=== PATIENT | female | born 1955 | race Caucasian/White ===

== ENCOUNTER 2016-11-17 09:49 | Inpatient (IN) | payer OTHER ==
[~2016-11-17] VITALS: Ht 162.6 cm; Wt 125.6 kg
[~2016-11-17 09:49] MED LIST: ALBU1.25 NEB; ALBU8.5H8 IH; ALBU8.5H8 INH; ALPR1TAB2 PO; CARI350T PO; DOCU-109 PO; ECHI350C PO; FEXO180T81 PO; HYDR-2678 PO; HYDR-971 PO; IBUP200T43 PO; IPRA4AER IH; LANS30CA66 PO; MECL25TA3 PO; META-21 PO; MOME0.5P MC; MULT-505 PO; NABU500T PO; PHEN37.599 PO; POLY17PO5 PO; POLY8.5P PO; PRED-220 PO; PRED20TA PO; TIZA4TAB PO; TRAM50TA PO; TRAZ-90 PO; trazadone
--- NOTE | 2016-11-17 10:14 | ED.ADGEN ---
Past History Past Medical History: Anxiety, Arthritis, Asthma, Other Past Surgical History: Cholecystectomy, Hysterectomy, Oophorectomy, Other Alcohol Use: None Drug Use: None Adult General Chief Complaint Chief Complaint Multiple complaints HPI HPI Patient is a 61 year old female who presents with in stable episodes of the last several weeks. She also complains about some chest pressure and sided jaw pain. She also complains of migraine headache. She denies any nausea or vomiting. That she's been feeling dizzy and she had migraines in the last day. Since she's had multiple syncopal episodes over the last week to 2 weeks. She states yesterday she was taking a shower sitting in her bathtub and she woke up in the bathtub with water and face. She denies any injuries from any falls. She's takes Advil but this hasn't been helping. She was seen by her primary care physician this morning was concerned she might be having a heart attack or stroke in the ER. Review of Systems Review of Systems Constitutional: Denies fever or chills [] Eyes: Denies change in visual acuity, redness, or eye pain [] HENT: Denies nasal congestion or sore throat [] Respiratory: Denies cough or shortness of breath [] Cardiovascular: No additional information not addressed in HPI [] GI: Denies abdominal pain, nausea, vomiting, bloody stools or diarrhea [] : Denies dysuria or hematuria [] Musculoskeletal: Denies back pain or joint pain [] Integument: Denies rash or skin lesions [] Neurologic: Positive for headache, denies any focal weakness or sensory changes. Endocrine: Denies polyuria or polydipsia [] Current Medications Current Medications Current Medications Medications (Trade) Dose Ordered Sig/[facility] Start Time Stop Time Status Last Admin Dose Admin Acetaminophen (Tylenol) 1,000 mg 1X ONCE 11/17/16 11:45 11/17/16 11:46 Allergies Allergies Allergies Coded Allergies Type Severity Reaction Last Updated Verified fish derived Allergy Intermediate 11/07/14 Yes nabumetone Allergy Intermediate 01/08/15 Yes tizanidine Allergy Intermediate 01/08/15 Yes Penicillins Adverse Reaction Intermediate 11/07/14 Yes Sulfa (Sulfonamide Antibiotics) Adverse Reaction Intermediate 11/07/14 Yes aspirin Adverse Reaction Intermediate 11/07/14 Yes latex Adverse Reaction Intermediate 11/07/14 Yes Physical Exam Physical Exam Constitutional: Well developed, well nourished, no acute distress, non-toxic appearance. [] HENT: Normocephalic, atraumatic, bilateral external ears normal, oropharynx moist, no oral exudates, nose normal. [] Eyes: PERRLA, EOMI, conjunctiva normal, no discharge. [] Neck: Normal range of motion, no tenderness, supple, no stridor. [] Cardiovascular:Heart rate regular rhythm, no murmur [] Lungs & Thorax: Bilateral breath sounds clear to auscultation [] Abdomen: Bowel sounds normal, soft, no tenderness, no masses, no pulsatile masses. [] Skin: Warm, dry, no erythema, no rash. [] Back: No tenderness, no CVA tenderness. [] Extremities: No tenderness, no cyanosis, no clubbing, ROM intact, no edema. [] Neurologic: Alert and oriented X 3, normal motor function, normal sensory function, no focal deficits noted. [] Psychologic: Affect normal, judgement normal, mood normal. [] Current Patient Data Vital Signs Vital Signs Date Time Temp Pulse Resp B/P (MAP) Pulse Ox O2 Delivery O2 Flow Rate FiO2 11/17/16 09:55 97.9 88 18 97 Room Air Lab Results Laboratory Tests Test 11/17/16 10:15 11/17/16 10:18 Urine Collection Type Unknown Urine Color Yellow Urine Clarity Hazy Urine pH 5.5 Urine Specific [place] >=1.030 Urine Protein Neg (NEG-TRACE) Urine Glucose (UA) Neg mg/dL (NEG) Urine Ketones (Stick) Trace mg/dL (NEG) Urine Blood Neg (NEG) Urine Nitrite Neg (NEG) Urine Bilirubin Neg (NEG) Urine Urobilinogen Dipstick 0.2 mg/dL (0.2 mg/dL) Urine Leukocyte Esterase Neg (NEG) Urine RBC Rare /HPF (0-2) Urine WBC Rare /HPF (0-4) Urine Squamous Epithelial Cells Occ /LPF Urine Bacteria 0 /HPF (0-FEW) Urine Mucus Slight /LPF Urine Opiates Screen Neg (NEG) Urine Methadone Screen Neg (NEG) Urine Barbiturates Neg (NEG) Urine Phencyclidine Screen Neg (NEG) Urine Amphetamine/Methamphetamine Neg (NEG) Urine Benzodiazepines Screen Pos (NEG) Urine Cocaine Screen Neg (NEG) Urine Cannabinoids Screen Neg (NEG) Urine Ethyl Alcohol Neg (NEG) White Blood Count 7.7 x10^3/uL (4.0-11.0) Red Blood Count 4.76 x10^6/uL (3.50-5.40) Hemoglobin 14.6 g/dL (12.0-15.5) Hematocrit 42.8 % (36.0-47.0) Mean Corpuscular Volume 90 fL (79-100) Mean Corpuscular Hemoglobin 31 pg (25-35) Mean Corpuscular Hemoglobin Concent 34 g/dL (31-37) Red Cell Distribution Width 13.3 % (11.5-14.5) Platelet Count 295 x10^3/uL (140-400) Neutrophils (%) (Auto) 51 % (31-73) Lymphocytes (%) (Auto) 34 % (24-48) Monocytes (%) (Auto) 8 % (0-9) Eosinophils (%) (Auto) 6 % (0-3) H Basophils (%) (Auto) 1 % (0-3) Neutrophils # (Auto) 3.9 x10^3uL (1.8-7.7) Lymphocytes # (Auto) 2.6 x10^3/uL (1.0-4.8) Monocytes # (Auto) 0.6 x10^3/uL (0.0-1.1) Eosinophils # (Auto) 0.5 x10^3/uL (0.0-0.7) Basophils # (Auto) 0.1 x10^3/uL (0.0-0.2) Prothrombin Time 9.5 SEC (9.4-11.4) Prothrombin Time INR 0.9 (0.9-1.1) PTT 23 SEC (23-33) Sodium Level 139 mmol/L (136-145) Potassium Level 4.5 mmol/L (3.5-5.1) Chloride Level 106 mmol/L (98-107) Carbon Dioxide Level 31 mmol/L (21-32) Anion Gap 2 (6-14) L Blood Urea Nitrogen 15 mg/dL (7-20) Creatinine 0.8 mg/dL (0.6-1.0) Estimated GFR (Cockcroft-Gault) 73.4 Glucose Level 83 mg/dL (70-99) Calcium Level 9.0 mg/dL (8.5-10.1) Magnesium Level 2.1 mg/dL (1.8-2.4) Total Bilirubin 0.3 mg/dL (0.2-1.0) Direct Bilirubin 0.1 mg/dL (0.0-0.2) Aspartate Amino Transferase (AST) 11 U/L (15-37) L Alanine Aminotransferase (ALT) 20 U/L (14-59) Alkaline Phosphatase 104 U/L (46-116) Creatine Kinase 101 U/L (26-192) Creatine Kinase MB (Mass) 1.8 ng/mL (0.0-3.6) Creatine Kinase MB Relative Index 1.8 % (0-4) Troponin I Quantitative < 0.017 ng/mL (0-0.055) EZ-Uyd-S-Type Natriuretic Peptide 174 pg/mL (0-124) H Total Protein 7.0 g/dL (6.4-8.2) Albumin 3.7 g/dL (3.4-5.0) Lipase 184 U/L (73-393) EKG EKG EKG shows sinus rhythm rate [address] elevations or T-wave inversions, normal axis, QTC 411 ms, as interpreted by me. Radiology/Procedures Radiology/[place] [address] IMAGING REPORT Signed PATIENT: TANK DANG ACCOUNT: [id number] : 1955 LOCATION: ER AGE: 61 SEX: F EXAM STATUS: REG ER ORD. PHYSICIAN: DAMARIS LEMUS MD REASON: chest pain PROCEDURE: PORTABLE CHEST 1V EXAM: Chest one view. HISTORY: Syncope, dizziness, weakness. COMPARISON: 05/02/2016. FINDINGS: A frontal view of the chest is obtained. There are no confluent infiltrates. There is no pneumothorax or pleural effusion. The heart is not enlarged. Prominence of the left hilum appears stable chronically. There is a mild thoracic dextroscoliosis. Carotid atherosclerotic calcifications are noted. The left distal clavicle has been partially resected. IMPRESSION: 1. No confluent infiltrates. DICTATED AND SIGNED BY: MIGEL PASCUAL MD DATE: 11/17/16 1031 CC: CARMINA BARRON MD; DAMARIS LEMUS MD ~ [place] [id number] IMAGING REPORT Signed PATIENT: TANK DANG ACCOUNT: [id number] : 1955 LOCATION: ER AGE: 61 SEX: F EXAM STATUS: REG ER ORD. PHYSICIAN: DAMARIS LEMUS MD REASON: dizziness PROCEDURE: CT HEAD WO CONTRAST Indication syncopal episode. Dizziness. Weakness. Noncontrast images of the head were obtained. Note is made of a similar examination 09/16/2014. The calvarium appears unremarkable. The visualized paranasal sinuses appear normal. There is no subdural or epidural hematoma. There is no mass or midline shift. There is no hemorrhage. Acute finding is not apparent. IMPRESSION: No acute intracranial finding PQRS Compliance Statement: One or more of the following individualized dose reduction techniques were utilized for this examination: 1. Automated exposure control 2. Adjustment of the mA and/or kV according to patient size 3. Use of iterative reconstruction technique DICTATED AND SIGNED BY: ISMAEL ALVA MD DATE: 11/17/16 1032 CC: CARMINA BARRON MD; DAMARIS LEMUS MD ~ Course & Med Decision Making Course & Med Decision Making Pertinent Labs and Imaging studies reviewed. (See chart for details) Patient is being admitted Dr. Barron for worsening episodes and her chest discomfort. EKG, chest x-ray, basic labs nonacute this time. She is allergic to aspirin. She being admitted in stable condition to med telemetry. Final Impression Final Impression Chest discomfort Syncopal episodes Problems: Dragon Disclaimer Dragon Disclaimer This electronic medical record was generated, in whole or in part, using a voice recognition dictation system. DAMARIS LEMUS MD Nov 17, 2016 10:13
[2016-11-17 10:34] LABS: BASO # 0.1 x10^3/uL (0.0-0.2); BASO % 1 % (0-3); EOS # 0.5 x10^3/uL (0.0-0.7); EOS % 6 % (0-3); HEMATOCRIT 42.8 % (36.0-47.0); HEMOGLOBIN 14.6 g/dL (12.0-15.5); LYMPH # 2.6 x10^3/uL (1.0-4.8); LYMPH % 34 % (24-48); MEAN CORPUSCULAR HEMOGLOBIN 31 pg (25-35); MEAN CORPUSCULAR HGB CONC 34 g/dL (31-37); MEAN CORPUSCULAR VOLUME 90 fL (79-100); MONO # 0.6 x10^3/uL (0.0-1.1); MONO % 8 % (0-9); NEUT # 3.9 x10^3uL (1.8-7.7); NEUT % 51 % (31-73); PLATELET COUNT 295 x10^3/uL (140-400); RED BLOOD COUNT 4.76 x10^6/uL (3.50-5.40); RED CELL DISTRIBUTION WIDTH 13.3 % (11.5-14.5); WHITE BLOOD COUNT 7.7 x10^3/uL (4.0-11.0)
--- NOTE | 2016-11-17 10:38 | RAD ---
EXAM: Chest one view. HISTORY: Syncope, dizziness, weakness. COMPARISON: 05/02/2016. FINDINGS: A frontal view of the chest is obtained. There are no confluent infiltrates. There is no pneumothorax or pleural effusion. The heart is not enlarged. Prominence of the left hilum appears stable chronically. There is a mild thoracic dextroscoliosis. Carotid atherosclerotic calcifications are noted. The left distal clavicle has been partially resected. IMPRESSION: 1. No confluent infiltrates.
--- NOTE | 2016-11-17 10:38 | RAD ---
Indication syncopal episode. Dizziness. Weakness. Noncontrast images of the head were obtained. Note is made of a similar examination 09/16/2014. The calvarium appears unremarkable. The visualized paranasal sinuses appear normal. There is no subdural or epidural hematoma. There is no mass or midline shift. There is no hemorrhage. Acute finding is not apparent. IMPRESSION: No acute intracranial finding PQRS Compliance Statement: One or more of the following individualized dose reduction techniques were utilized for this examination: 1. Automated exposure control 2. Adjustment of the mA and/or kV according to patient size 3. Use of iterative reconstruction technique
[2016-11-17 10:41] LABS: BILIRUBIN,URINE NEG (NEG); CLARITY,URINE HAZY; COLOR,URINE YELLOW; GLUCOSE,URINE NEG (NEG)
[2016-11-17 10:42] LABS: BACTERIA,URINE 0 /HPF (0-FEW); NITRITE,URINE NEG (NEG); RBC,URINE RARE /HPF (0-2); SQUAMOUS EPITHELIAL CELL,UR OCC /LPF; UROBILINOGEN,URINE 0.2 mg/dL (0.2 mg/dL); WBC,URINE RARE /HPF (0-4)
[2016-11-17 10:43] LABS: AMPHETAMINE/METHAMPHETAMINE NEG (NEG); BARBITURATES NEG (NEG); BENZODIAZEPINES POS (NEG); CANNABINOIDS NEG (NEG); COCAINE NEG (NEG); METHADONE NEG (NEG); OPIATES NEG (NEG); PHENCYCLIDINE NEG (NEG)
[2016-11-17 10:58] LABS: ALBUMIN 3.7 g/dL (3.4-5.0); CREATININE 0.8 mg/dL (0.6-1.0); DIRECT BILIRUBIN 0.1 mg/dL (0.0-0.2); GFR 73.4; MAGNESIUM 2.1 mg/dL (1.8-2.4); POTASSIUM 4.5 mmol/L (3.5-5.1); TOTAL BILIRUBIN 0.3 mg/dL (0.2-1.0)
[2016-11-17] MEDS ORDERED: ACETAMINOPHEN 500 MG TABLET PO ONE (11:45)
[2016-11-17] MEDS ORDERED: ONDANSETRON PF 4 MG/2 ML VIAL. IV PRN (12:00)
--- NOTE | 2016-11-17 12:47 | EKG ---
[address] [address] Test Date: 2016-11-17 Test Time: 09:54:55 Pat Name: TANK DANG Department: Room: Gender: F [employer]: : 1955 Requested By: DAMARIS LEMUS Order Number: [id number] Reading MD: Bishnu Recio Measurements Intervals [place] Rate: 78 P: 47 PA: 168 QRS: 18 QRSD: 92 T: 56 QT: 358 QTc: 411 Interpretive Statements SINUS RHYTHM Electronically Signed On 11-30-2016 14:16:32 CDT by Bishnu Recio
[2016-11-17 15:48] VITALS: BP 121/98
[2016-11-17 18:45] VITALS: BP 129/82
[2016-11-17 18:46] VITALS: BP_SYST 121; BP_SYST 147; BP_DIAS 110
[2016-11-17] MEDS ORDERED: NON FORMULARY ITEM (Albuterol Sulfate (Albuterol Sulfate Neb Soln) 1 VIAL) NEB PRN (19:30)
[2016-11-17] MEDS ORDERED: ALBUTEROL SULFATE 8GM INHALER. IH PRN (19:30)
[2016-11-17 19:43] VITALS: BP 110/64
[2016-11-17] MEDS: ALPRAZolam 0.5 MG TABLET PO SCH (19:56)
[2016-11-17] MEDS ORDERED: ALBUTEROL SULFATE 2.5 MG/3 ML NEBU. NEB PRN (20:00)
[2016-11-17] MEDS: traMADol 50 MG TABLET PO PRN (20:08)
[2016-11-17] MEDS: IPRATRPIUM/ALBUTEROL 0.5/2.5MG 3 ML NEBU. NEB SCH (20:15)
[2016-11-17] MEDS ORDERED: traZODone 100 MG TABLET. PO SCH (21:00)
[2016-11-17] MEDS ORDERED: NON FORMULARY ITEM (Ipratropium/Albuterol Sulfate (Combivent Respimat Inhal) 4 GM) IH SCH (21:00)
[2016-11-17] MEDS: ENOXAPARIN 40 MG/0.4 ML DISP.SYRIN. SQ SCH (21:40)
[2016-11-17] MEDS: IV NORMAL SALINE 1,000ML 1,000 ML IV SCH (22:11)
[2016-11-17] MEDS ORDERED: ACETAMINOPHEN 500 MG TABLET PO PRN (22:45)
[2016-11-17] MEDS: ACETAMINOPHEN 325 MG TABLET PO PRN (22:51)
[2016-11-17 23:17] VITALS: BP 136/84
--- NOTE | 2016-11-18 03:45 | ACF ---
Admission Criteria Forms [facility] Telemetry Admission Guidelines (Place 'X' for any and all applicable criteria): Admission to telemetry [A] may be indicated for ANY ONE of the following(1)(2)(3 )(4)(5): [ ]I. Cardiac disease, including ANY ONE of the following (9)(10)(11)(12)(13 ): [ ]a) Postacute KS [ ]b) Low-risk patients with ST-segment elevation KS who have undergone successful percutaneous coronary intervention [ ]c) Unstable angina [ ]d) Suspected KS (until it is ruled out) [ ]e) Post cardiac surgery (first 48 to 72 hours unless complications occur) [ ]f) Acute arrhythmias (including significant tachycardia or bradycardia) [B] [ ]g) Firing of an implantable cardioverter defibrillator [C] [ ]h) Suspected pacemaker or implantable cardioverter defibrillator malfunction (10) [ ]i) New administration or adjustment of an antiarrhythmic drug [D ] [ ]j) Child admitted for acute congestive heart failure [ ]j) Long QT syndrome [ ]k) Advanced heart block (eg, second-degree Mobitz type II, third- degree heart block) [ ]l) Acute myocarditis or pericarditis [ ]m) Short-term (ambulatory or inpatient) monitoring after a cardiac procedure as indicated by ANY ONE of the following [E]: [ ]i) Electrophysiologic studies [ ]ii) Percutaneous coronary intervention with stent placement [ ]iii) Pacemaker placement with cardiac conduction defect [ ]iv) Implantable cardiac defibrillator placement [ ]II. Drug overdose or poisoning with substance that causes arrhythmias or QT prolongation (eg, phenothiazines, sympathomimetic agents, cyclic antidepressants, digitalis, antiarrhythmic drugs)(15) [ ]III. Short-term (ambulatory or inpatient) monitoring after therapeutic or diagnostic procedure requiring conscious sedation or anesthesia (eg, endoscopy, elective cardioversion) [ ]IV. Acute cerebrovascular even[F](18) [ ]V. Massive blood transfusion (eg, at least 10 units of packed red blood cells in 24 hours) [ ]. Variceal bleeding after endoscopy, sclerotherapy, or IV vasopressin [ ]VII. Uncorrected electrolyte abnormalities associated with an increased risk of dangerous arrhythmia [G]; examples include [ ]a) Hyperkalemia with attributable ECG changes [ ]b) Potassium greater than 6.5 mmol/L (mEq/L) in a patient without history of chronic renal disease [ ]c) Prolonged QT attributed to hypokalemia, hypomagnesemia, or hypocalcemia [X]VIII.Unexplained syncope or other neurologic event suspected of being due to arrhythmia due to a finding that increases risk; examples include(19)(20)(21): [ ]a) High-risk ECG findings (eg, bifascicular block, bradycardia, abnormal QT interval, ventricular pre- excitation) [ ]b) History of previous syncope due to arrhythmia [ ]c) Abnormal ventricular function (eg, reduced ejection fraction ) [ ]d) Exertional or supine syncope [X]e) Concerning syncope characteristics (eg, sudden loss of consciousness without prodrome) [ ]f) Family history of sudden [ ]g) Use of arrhythmogenic medication [ ]h) Suspected cardiac ischemia [ ]i) Known channelopathy (eg, long QT syndrome, Brugada syndrome, or catecholaminergic paroxysmal ventricular tachycardia) [ ]j) Known structural heart disease (eg, hypertrophic cardiomyopathy , severe valvular disease) [ ]k) Palpitations preceding syncope The original [employer] content created by [employer] has been revised. The portions of the content which have been revised are identified through the use of italic text or in bold, and [employer] has neither reviewed nor approved the modified material. All other unmodified content is copyright [employer]. Please see references footnoted in the original [employer] edition 2016 Admission Criteria Met?: Yes DOMINICK CARIAS Nov 18, 2016 03:44
[2016-11-18] MEDS: ACETAMINOPHEN 325 MG TABLET PO PRN ×2 (03:47→10:57)
[2016-11-18] MEDS: IPRATRPIUM/ALBUTEROL 0.5/2.5MG 3 ML NEBU. NEB SCH ×3 (05:20→15:31)
[2016-11-18 05:25] VITALS: BP 115/73
[2016-11-18 06:37] LABS: BASO # 0.1 x10^3/uL (0.0-0.2); BASO % 1 % (0-3); EOS # 0.4 x10^3/uL (0.0-0.7); EOS % 6 % (0-3); HEMATOCRIT 41.7 % (36.0-47.0); HEMOGLOBIN 13.9 g/dL (12.0-15.5); LYMPH # 3.3 x10^3/uL (1.0-4.8); LYMPH % 42 % (24-48); MEAN CORPUSCULAR HEMOGLOBIN 30 pg (25-35); MEAN CORPUSCULAR HGB CONC 33 g/dL (31-37); MEAN CORPUSCULAR VOLUME 89 fL (79-100); MONO # 0.5 x10^3/uL (0.0-1.1); MONO % 7 % (0-9); NEUT # 3.4 x10^3uL (1.8-7.7); NEUT % 44 % (31-73); PLATELET COUNT 296 x10^3/uL (140-400); RED BLOOD COUNT 4.67 x10^6/uL (3.50-5.40); RED CELL DISTRIBUTION WIDTH 13.5 % (11.5-14.5); WHITE BLOOD COUNT 7.7 x10^3/uL (4.0-11.0)
[2016-11-18 06:50] LABS: CALCIUM 8.5 mg/dL (8.5-10.1); CREATININE 0.8 mg/dL (0.6-1.0); GFR 73.4; POTASSIUM 3.8 mmol/L (3.5-5.1)
[2016-11-18] MEDS: traMADol 50 MG TABLET PO PRN (07:53)
[2016-11-18] MEDS: ALPRAZolam 0.5 MG TABLET PO SCH ×2 (07:54→14:17)
[2016-11-18] MEDS: ENOXAPARIN 40 MG/0.4 ML DISP.SYRIN. SQ SCH (07:54)
[2016-11-18] MEDS ORDERED: CETIRIZINE HCL 10 MG TABLET PO SCH (09:00)
[2016-11-18] MEDS ORDERED: PANTOPRAZOLE 40 MG TABLET. PO SCH (09:00)
--- NOTE | 2016-11-18 09:59 | PDOC ---
OBJECTIVE: Problems: Problems Medical Problems: (1) Chest pain Status: Acute Vital Signs: Vital Signs Date Time Temp Pulse Resp B/P (MAP) Pulse Ox O2 Delivery O2 Flow Rate FiO2 11/18/16 09:40 93 Room Air 11/18/16 05:25 98.2 73 16 115/73 (87) I & O Intake and Output 11/18/16 07:00 Intake Total 1120 ml Output Total 1250 ml Balance -130 ml Intake Oral 1120 ml Output Urine Total 1250 ml # Voids 3 Labs: Laboratory Tests Test 11/17/16 10:15 11/17/16 10:18 11/17/16 16:25 11/17/16 22:43 Urine Collection Type Unknown Urine Color Yellow Urine Clarity Hazy Urine pH 5.5 Urine Specific [place] >=1.030 Urine Protein Neg (NEG-TRACE) Urine Glucose (UA) Neg mg/dL (NEG) Urine Ketones (Stick) Trace mg/dL (NEG) Urine Blood Neg (NEG) Urine Nitrite Neg (NEG) Urine Bilirubin Neg (NEG) Urine Urobilinogen Dipstick 0.2 mg/dL (0.2 mg/dL) Urine Leukocyte Esterase Neg (NEG) Urine RBC Rare /HPF (0-2) Urine WBC Rare /HPF (0-4) Urine Squamous Epithelial Cells Occ /LPF Urine Bacteria 0 /HPF (0-FEW) Urine Mucus Slight /LPF Urine Opiates Screen Neg (NEG) Urine Methadone Screen Neg (NEG) Urine Barbiturates Neg (NEG) Urine Phencyclidine Screen Neg (NEG) Urine Amphetamine/Methamphetamine Neg (NEG) Urine Benzodiazepines Screen Pos (NEG) Urine Cocaine Screen Neg (NEG) Urine Cannabinoids Screen Neg (NEG) Urine Ethyl Alcohol Neg (NEG) White Blood Count 7.7 x10^3/uL (4.0-11.0) Red Blood Count 4.76 x10^6/uL (3.50-5.40) Hemoglobin 14.6 g/dL (12.0-15.5) Hematocrit 42.8 % (36.0-47.0) Mean Corpuscular Volume 90 fL (79-100) Mean Corpuscular Hemoglobin 31 pg (25-35) Mean Corpuscular Hemoglobin Concent 34 g/dL (31-37) Red Cell Distribution Width 13.3 % (11.5-14.5) Platelet Count 295 x10^3/uL (140-400) Neutrophils (%) (Auto) 51 % (31-73) Lymphocytes (%) (Auto) 34 % (24-48) Monocytes (%) (Auto) 8 % (0-9) Eosinophils (%) (Auto) 6 % (0-3) Basophils (%) (Auto) 1 % (0-3) Neutrophils # (Auto) 3.9 x10^3uL (1.8-7.7) Lymphocytes # (Auto) 2.6 x10^3/uL (1.0-4.8) Monocytes # (Auto) 0.6 x10^3/uL (0.0-1.1) Eosinophils # (Auto) 0.5 x10^3/uL (0.0-0.7) Basophils # (Auto) 0.1 x10^3/uL (0.0-0.2) Prothrombin Time 9.5 SEC (9.4-11.4) Prothromb Time International Ratio 0.9 (0.9-1.1) Activated Partial Thromboplast Time 23 SEC (23-33) Sodium Level 139 mmol/L (136-145) Potassium Level 4.5 mmol/L (3.5-5.1) Chloride Level 106 mmol/L (98-107) Carbon Dioxide Level 31 mmol/L (21-32) Anion Gap 2 (6-14) Blood Urea Nitrogen 15 mg/dL (7-20) Creatinine 0.8 mg/dL (0.6-1.0) Estimated GFR (Cockcroft-Gault) 73.4 Glucose Level 83 mg/dL (70-99) Calcium Level 9.0 mg/dL (8.5-10.1) Magnesium Level 2.1 mg/dL (1.8-2.4) Total Bilirubin 0.3 mg/dL (0.2-1.0) Direct Bilirubin 0.1 mg/dL (0.0-0.2) Aspartate Amino Transf (AST/SGOT) 11 U/L (15-37) Alanine Aminotransferase (ALT/SGPT) 20 U/L (14-59) Alkaline Phosphatase 104 U/L (46-116) Creatine Kinase 101 U/L (26-192) Creatine Kinase MB (Mass) 1.8 ng/mL (0.0-3.6) Creatine Kinase MB Relative Index 1.8 % (0-4) Troponin I Quantitative < 0.017 ng/mL (0-0.055) < 0.017 ng/mL (0-0.055) < 0.017 ng/mL (0-0.055) NR-Cry-C-Type Natriuretic Peptide 174 pg/mL (0-124) Total Protein 7.0 g/dL (6.4-8.2) Albumin 3.7 g/dL (3.4-5.0) Lipase 184 U/L (73-393) Thyroid Stimulating Hormone (TSH) 3.720 uIU/mL (0.358-3.740) Test 11/18/16 06:01 White Blood Count 7.7 x10^3/uL (4.0-11.0) Red Blood Count 4.67 x10^6/uL (3.50-5.40) Hemoglobin 13.9 g/dL (12.0-15.5) Hematocrit 41.7 % (36.0-47.0) Mean Corpuscular Volume 89 fL (79-100) Mean Corpuscular Hemoglobin 30 pg (25-35) Mean Corpuscular Hemoglobin Concent 33 g/dL (31-37) Red Cell Distribution Width 13.5 % (11.5-14.5) Platelet Count 296 x10^3/uL (140-400) Neutrophils (%) (Auto) 44 % (31-73) Lymphocytes (%) (Auto) 42 % (24-48) Monocytes (%) (Auto) 7 % (0-9) Eosinophils (%) (Auto) 6 % (0-3) Basophils (%) (Auto) 1 % (0-3) Neutrophils # (Auto) 3.4 x10^3uL (1.8-7.7) Lymphocytes # (Auto) 3.3 x10^3/uL (1.0-4.8) Monocytes # (Auto) 0.5 x10^3/uL (0.0-1.1) Eosinophils # (Auto) 0.4 x10^3/uL (0.0-0.7) Basophils # (Auto) 0.1 x10^3/uL (0.0-0.2) Sodium Level 140 mmol/L (136-145) Potassium Level 3.8 mmol/L (3.5-5.1) Chloride Level 103 mmol/L (98-107) Carbon Dioxide Level 34 mmol/L (21-32) Anion Gap 3 (6-14) Blood Urea Nitrogen 12 mg/dL (7-20) Creatinine 0.8 mg/dL (0.6-1.0) Estimated GFR (Cockcroft-Gault) 73.4 Glucose Level 100 mg/dL (70-99) Calcium Level 8.5 mg/dL (8.5-10.1) Physical Exam: Alert oriented white female in no apparent distress with feeling weak and lightheaded still orthostatic hypotension lungs diminished but clear CV exam regular sinus rhythm M soft nontender extremities without clubbing cyanosis edema Neurologically alert and oriented 3 ASSESSMENT: Chest pain rule out MS have cardiology review the patient Syncope Lightheadedness PLAN: Continue with IV fluids continue with cardiology consultation and make further evaluation once they've evaluated the patient CARMINA BARRON MD Nov 18, 2016 09:59
--- NOTE | 2016-11-18 10:04 | PDOC2 ---
CONSULT Date of Admission DATE: 11/18/16 TIME: 10:04 Reason for Consult: chest pain, syncope Problem List Problems Medical Problems: (1) Chest pain Status: Acute History of Present Illness Ms Urena is a 61 year old female who presents with complaints of Migrane, Chest pain and dyspnea on exertion, palpitations and syncope. She reports dyspnea and chest pressure on exertion that resolves with about 15 minutes of rest. She reports this occured most recently with shopping at [employer] and walking out to her car. She reports associated diaphoresis and lightheadedness. She reports episodes of palpitations that feel like fluttering but not associated with exertion. She additionally reports several episodes of syncope over the last couple weeks. The most recent occurred while showering. she was apparently using a shower chair and passed out. She reports coming to with the water spraying her face. She reports preceding lightheaded feeling. she complains of headache with associated photosensitivity, jaw pain and pain down her neck into her shoulder. she reports some relief with flexion of her neck. Past Medical History Stress echo 12/2015 submaximal, EF 55% MPI 01/2016 normal perfusion. Sleep study Dec 2015 - positive for sleep apnea and recommended CPAP @ [id number] with repeat oximetry on those settings. PAST MEDICAL HISTORY: Significant for hearing loss in the left ear, shortness of breath with exertion, and sleep apnea, migranes, chronic allergy problems, vertigo, asthma, morbid obesity, gastroesophageal reflux disease, degenerative arthritis, chronic back pain, panic disorder, depression, anxiety and psoriasis. Lung nodules s/p bronchoscopy 02/01/16 FINDINGS: 1. Normal vocal cords. 2. No endobronchial lesions. 3. Variate normal openings to the right middle lobe and right lower lobe segment somewhat smaller than usual. 4. No endobronchial lesions. 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 Family History Stroke Social History Prior history of minimal tobacco use. No ETOH, No illicit drugs. 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 Current Medications Current Medications Acetaminophen (Tylenol) 1,000 mg 1X ONCE PO Last administered on 11/17/16t 11: 45; Start 11/17/16 at 11:45; Stop 11/17/16 at 11:46; Status DC Ondansetron HCl (Zofran) 4 mg PRN Q4HRS PRN IV NAUSEA/VOMITING; Start 11/17/16 at 12:00; Stop 11/18/16 at 11:59 Albuterol Sulfate (Ventolin Hfa) 2 puff Q4HRS PRN IH SHORTNESS OF BREATH; Start 11/17/16 at 19:30; Status UNV Tramadol HCl (Ultram) 50 mg PRN Q4HRS PRN PO MODERATE PAIN Last administered on 11/18/16 07:53; Start 11/17/16 at 19:30 Trazodone HCl (Desyrel) 100 mg QHS PO Last administered on 11/17/16 21:39; Start 11/17/16 at 21:00 Non-Formulary Medication 1 vial Q2HR PRN NEB SHORTNESS OF BREATH; Start at 19:30; Status UNV Alprazolam (Xanax) 1 mg TID PO Last administered on 11/18/16 07:54; Start at 21:00 Cetirizine HCl (ZyrTEC) 10 mg DAILY PO Last administered on 11/18/16 07:54; Start 11/18/16 at 09:00 Non-Formulary Medication 4 gm TID IH ; Start 11/17/16 at 21:00; Status UNV Pantoprazole Sodium (Protonix) 40 mg DAILY PO Last administered on 11/18/16 07 :54; Start 11/18/16 at 09:00 Enoxaparin Sodium (Lovenox) 40 mg Q12HR SQ Last administered on 11/18/16 07:54 ; Start 11/17/16 at 21:00 Albuterol Sulfate (Ventolin) 2.5 mg PRN Q2HR PRN NEB SHORTNESS OF BREATH; Start 11/17/16 at 20:00 Albuterol/ Ipratropium (Duoneb) 3 ml RTQID NEB Last administered on 11/18/16 09:38; Start 11/17/16 at 20:00 Sodium Chloride 1,000 ml @ 75 mls/hr [id number] IV Last administered on 22:11; Start 11/17/16 at 20:45 Acetaminophen (Tylenol) 650 mg PRN Q6HRS PRN PO PAIN / TEMP; Start 11/17/16 at 22:45; Stop 11/17/16 at 22:49; Status DC Acetaminophen (Tylenol) 650 mg PRN Q6HRS PRN PO PAIN / TEMP Last administered on 11/18/16t 03:47; Start 11/17/16 at 22:49 Active Scripts Active Tramadol Hcl (Tramadol HCl) 50 Mg Tablet 50 Mg PO Q4-6HRS PRN Reported Albuterol Sulfate Neb Soln (Albuterol Sulfate) 1.25 Mg/3 Ml Vial.neb 1 Vial NEB Q2HR PRN LAST DOSE GIVEN: DATE: TODAY TIME: 6 AM NEXT DOSE DUE: DATE: TODAY TIME: AT ANYTIME WHEN NEEDED Trazodone Hcl 100 Mg Tablet 1 Tab PO QHS LAST DOSE GIVEN: DATE: YESTERDAY TIME: PM NEXT DOSE DUE: DATE: TODAY TIME: AT BEDTIME Prevacid (Lansoprazole) 30 Mg Capsule.dr 1 Cap PO DAILY PROTONIX SUBSTITUTED FOR PREVACID LAST DOSE GIVEN: DATE: TODAY TIME: BEFORE BREAKFAST NEXT DOSE DUE: DATE: TOMORROW TIME: BEFORE BREAKFAST Sandra Allergy (Fexofenadine Hcl) 180 Mg Tablet 180 Mg PO DAILY LAST DOSE GIVEN: DATE: TODAY TIME: AM NEXT DOSE DUE: DATE: TOMORROW TIME: AM Xanax (Alprazolam) 1 Mg Tablet 1 Tab PO TID LAST DOSE GIVEN: DATE: TIME: NEXT DOSE DUE: DATE: TODAY TIME: WHEN Motrin Ib (Ibuprofen) 200 Mg Tablet 800 Mg PO TID PRN LAST DOSE GIVEN: DATE: TIME: NEXT DOSE DUE: DATE: TODAY TIME: WHEN NEEDED Combivent Respimat Inhal (Ipratropium/Albuterol Sulfate) 4 Gm Aer.w.adap 4 Gm IH TID LAST DOSE GIVEN: DATE: TIME: NEXT DOSE DUE: DATE: TIME: Proair Hfa Inhaler (Albuterol Sulfate) 8.5 Gm Hfa.aer.ad 2 Puff IH PRN Q4-6HRS LAST DOSE GIVEN: DATE: TIME: NEXT DOSE DUE: DATE: TODAY TIME: WHEN NEEDED Allergies: Coded Allergies: fish derived (Verified Allergy, Intermediate, 11/07/14) nabumetone (Verified Allergy, Intermediate, 01/08/15) tizanidine (Verified Allergy, Intermediate, 01/08/15) Penicillins (Verified Adverse Reaction, Intermediate, 11/07/14) Sulfa (Sulfonamide Antibiotics) (Verified Adverse Reaction, Intermediate, 11/07/14) aspirin (Verified Adverse Reaction, Intermediate, 11/07/14) latex (Verified Adverse Reaction, Intermediate, 11/07/14) Review of System as per HPI General: Alert, Oriented X3, Cooperative, No acute distress HEENT: Atraumatic, EOMI, Mucous membr. moist/pink Lungs: Clear to auscultation, Normal air movement Heart: Regular rate, Normal S1, Normal S2 Abdomen: Normal bowel sounds, Soft, No tenderness Extremities: Normal pulses, Other (1+ edema) Neuro: Normal speech, Strength at 5/5 X4 ext Psych/Mental Status: Mental status NL, Mood NL VITALS Vital Signs Date Time Temp Pulse Resp B/P (MAP) Pulse Ox O2 Delivery O2 Flow Rate FiO2 11/18/16 09:40 93 Room Air 11/18/16 05:25 98.2 73 16 115/73 (87) Labs Laboratory Tests Test 11/17/16 10:15 11/17/16 10:18 11/17/16 16:25 11/17/16 22:43 Urine Collection Type Unknown Urine Color Yellow Urine Clarity Hazy Urine pH 5.5 Urine Specific [place] >=1.030 Urine Protein Neg (NEG-TRACE) Urine Glucose (UA) Neg mg/dL (NEG) Urine Ketones (Stick) Trace mg/dL (NEG) Urine Blood Neg (NEG) Urine Nitrite Neg (NEG) Urine Bilirubin Neg (NEG) Urine Urobilinogen Dipstick 0.2 mg/dL (0.2 mg/dL) Urine Leukocyte Esterase Neg (NEG) Urine RBC Rare /HPF (0-2) Urine WBC Rare /HPF (0-4) Urine Squamous Epithelial Cells Occ /LPF Urine Bacteria 0 /HPF (0-FEW) Urine Mucus Slight /LPF Urine Opiates Screen Neg (NEG) Urine Methadone Screen Neg (NEG) Urine Barbiturates Neg (NEG) Urine Phencyclidine Screen Neg (NEG) Urine Amphetamine/Methamphetamine Neg (NEG) Urine Benzodiazepines Screen Pos (NEG) Urine Cocaine Screen Neg (NEG) Urine Cannabinoids Screen Neg (NEG) Urine Ethyl Alcohol Neg (NEG) White Blood Count 7.7 x10^3/uL (4.0-11.0) Red Blood Count 4.76 x10^6/uL (3.50-5.40) Hemoglobin 14.6 g/dL (12.0-15.5) Hematocrit 42.8 % (36.0-47.0) Mean Corpuscular Volume 90 fL (79-100) Mean Corpuscular Hemoglobin 31 pg (25-35) Mean Corpuscular Hemoglobin Concent 34 g/dL (31-37) Red Cell Distribution Width 13.3 % (11.5-14.5) Platelet Count 295 x10^3/uL (140-400) Neutrophils (%) (Auto) 51 % (31-73) Lymphocytes (%) (Auto) 34 % (24-48) Monocytes (%) (Auto) 8 % (0-9) Eosinophils (%) (Auto) 6 % (0-3) Basophils (%) (Auto) 1 % (0-3) Neutrophils # (Auto) 3.9 x10^3uL (1.8-7.7) Lymphocytes # (Auto) 2.6 x10^3/uL (1.0-4.8) Monocytes # (Auto) 0.6 x10^3/uL (0.0-1.1) Eosinophils # (Auto) 0.5 x10^3/uL (0.0-0.7) Basophils # (Auto) 0.1 x10^3/uL (0.0-0.2) Prothrombin Time 9.5 SEC (9.4-11.4) Prothromb Time International Ratio 0.9 (0.9-1.1) Activated Partial Thromboplast Time 23 SEC (23-33) Sodium Level 139 mmol/L (136-145) Potassium Level 4.5 mmol/L (3.5-5.1) Chloride Level 106 mmol/L (98-107) Carbon Dioxide Level 31 mmol/L (21-32) Anion Gap 2 (6-14) Blood Urea Nitrogen 15 mg/dL (7-20) Creatinine 0.8 mg/dL (0.6-1.0) Estimated GFR (Cockcroft-Gault) 73.4 Glucose Level 83 mg/dL (70-99) Calcium Level 9.0 mg/dL (8.5-10.1) Magnesium Level 2.1 mg/dL (1.8-2.4) Total Bilirubin 0.3 mg/dL (0.2-1.0) Direct Bilirubin 0.1 mg/dL (0.0-0.2) Aspartate Amino Transf (AST/SGOT) 11 U/L (15-37) Alanine Aminotransferase (ALT/SGPT) 20 U/L (14-59) Alkaline Phosphatase 104 U/L (46-116) Creatine Kinase 101 U/L (26-192) Creatine Kinase MB (Mass) 1.8 ng/mL (0.0-3.6) Creatine Kinase MB Relative Index 1.8 % (0-4) Troponin I Quantitative < 0.017 ng/mL (0-0.055) < 0.017 ng/mL (0-0.055) < 0.017 ng/mL (0-0.055) NJ-Yas-A-Type Natriuretic Peptide 174 pg/mL (0-124) Total Protein 7.0 g/dL (6.4-8.2) Albumin 3.7 g/dL (3.4-5.0) Lipase 184 U/L (73-393) Thyroid Stimulating Hormone (TSH) 3.720 uIU/mL (0.358-3.740) Test 11/18/16 06:01 White Blood Count 7.7 x10^3/uL (4.0-11.0) Red Blood Count 4.67 x10^6/uL (3.50-5.40) Hemoglobin 13.9 g/dL (12.0-15.5) Hematocrit 41.7 % (36.0-47.0) Mean Corpuscular Volume 89 fL (79-100) Mean Corpuscular Hemoglobin 30 pg (25-35) Mean Corpuscular Hemoglobin Concent 33 g/dL (31-37) Red Cell Distribution Width 13.5 % (11.5-14.5) Platelet Count 296 x10^3/uL (140-400) Neutrophils (%) (Auto) 44 % (31-73) Lymphocytes (%) (Auto) 42 % (24-48) Monocytes (%) (Auto) 7 % (0-9) Eosinophils (%) (Auto) 6 % (0-3) Basophils (%) (Auto) 1 % (0-3) Neutrophils # (Auto) 3.4 x10^3uL (1.8-7.7) Lymphocytes # (Auto) 3.3 x10^3/uL (1.0-4.8) Monocytes # (Auto) 0.5 x10^3/uL (0.0-1.1) Eosinophils # (Auto) 0.4 x10^3/uL (0.0-0.7) Basophils # (Auto) 0.1 x10^3/uL (0.0-0.2) Sodium Level 140 mmol/L (136-145) Potassium Level 3.8 mmol/L (3.5-5.1) Chloride Level 103 mmol/L (98-107) Carbon Dioxide Level 34 mmol/L (21-32) Anion Gap 3 (6-14) Blood Urea Nitrogen 12 mg/dL (7-20) Creatinine 0.8 mg/dL (0.6-1.0) Estimated GFR (Cockcroft-Gault) 73.4 Glucose Level 100 mg/dL (70-99) Calcium Level 8.5 mg/dL (8.5-10.1) Images CXR - no acute disease Head CT - no acute findings EKG - sinus rhythm with non specific abn. Assessment/Plan 1. Chest pain - IL ruled out with normal trop x 3. No acute ischemic changes on EKG. Normal perfusion by MPI in Jan of last year. Await echo. 2. Dyspnea on exertion - follows with Dr Laboy. Request records. 3. syncope - ? orthostatic vs arrhythmia. No significant orthostasis currently. Discussed preventative measures. Suggest outpatient event monitoring. 4. KYLEE - CPAP as recommended, per PCP 5. palpitations - event monitoring outpatient 6. migrane/neck/jaw pain - ? secondary to c spine radiculopathy. 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
[2016-11-18] MEDS: IV NORMAL SALINE 1,000ML 1,000 ML IV SCH (10:52)
[2016-11-18 10:54] VITALS: BP 120/79
[2016-11-18 10:58] VITALS: BP 120/74
[2016-11-18 10:59] VITALS: BP 127/79
--- NOTE | 2016-11-18 15:14 | CARD ---
APPROVED REPORT EXAM: Two-dimensional and M-mode echocardiogram with Doppler and color Doppler. Other Information Quality : Good INDICATION Chest Pain 2D DIMENSIONS RVDd3.1 (2.9-3.5cm)Left Atrium(2D)3.7 (1.6-4.0cm) IVSd0.8 (0.7-1.1cm)Aortic Root(2D)2.8 (2.0-3.7cm) LVDd5.6 (3.9-5.9cm)LVOT Diameter2.1 (1.8-2.4cm) PWd1.0 (0.7-1.1cm)LVDs3.8 (2.5-4.0cm) FS (%) 31.4 %SV89.8 ml LVEF(%)58.7 (>50%) Aortic Valve AoV Peak Musa.187.2cm/sAoV VTI33.7cm AO Peak GR.14.0mmHgLVOT Peak Musa.163.1cm/s LVOT VTI 33.34cmAO Mean GR.7mmHg CRYSTAL (VMAX)3.65ts5FSK (VTI)3.53cm2 Mitral Valve MV E Mmpftslk94.5cm/sMV DECEL GNNY401yg MV A Ndrwcsif33.0cm/sE/A Ratio1.0 Tricuspid Valve TR P. Fqiwhwvj611qe/sRAP CMHPHERE6tmCi TR Peak Gr.13vsOjGFID13njZc Pulmonary Vein S1 Rmllyeal77.2cm/sD2 Fnodlpcq09.3cm/s LEFT VENTRICLE The left ventricle is normal size. There is mild concentric left ventricular hypertrophy. The left ve ntricular systolic function is normal. The Ejection Fraction is 55-60%. There is normal LV segmental wall motion. Transmitral Doppler flow pattern is Grade I-abnormal relaxation pattern. RIGHT VENTRICLE The right ventricle is normal size. The right ventricular systolic function is normal. ATRIA The left atrium size is normal. The right atrium size is normal. The interatrial septum is intact wit h no evidence for an atrial septal defect or patent foramen ovale as noted on 2-D or Doppler imaging. AORTIC VALVE The aortic valve is calcified but opens well. Doppler and Color Flow revealed no significant aortic r egurgitation. There is no significant aortic valvular stenosis. MITRAL VALVE The mitral valve is normal in structure and function. There is no evidence of mitral valve prolapse. There is no mitral valve stenosis. Doppler and Color-flow revealed trace mitral regurgitation. TRICUSPID VALVE The tricuspid valve is normal in structure and function. Doppler and Color Flow revealed trace tricus pid regurgitation. There is moderate pulmonary hypertension. The PA pressure was estimated at 46 mmHg . There is no tricuspid valve stenosis. PULMONIC VALVE The pulmonary valve is normal in structure and function. Doppler and Color Flow revealed no pulmonic valvular regurgitation. There is no pulmonic valvular stenosis. GREAT VESSELS The aortic root is normal in size. The ascending aorta is normal in size. The IVC is normal in size a nd collapses >50% with inspiration. PERICARDIAL EFFUSION There is no evidence of significant pericardial effusion. Critical Notification Critical Value: No <Conclusion> The left ventricular systolic function is normal. The Ejection Fraction is 55-60%. There is normal LV segmental wall motion. Trace mitral regurgitation. Trace tricuspid regurgitation. There is moderate pulmonary hypertension. The PA pressure was estimated at 46 mmHg. There is no evidence of significant pericardial effusion.
[2016-11-18 16:02] VITALS: BP 136/92
--- NOTE | 2016-12-04 14:17 | DS ---
DATE OF DISCHARGE: 11/18/2016 HOSPITAL COURSE: The patient is a 61-year-old female came in through the Emergency Room with chest pain that start morning of admission. The patient felt lightheaded, dizziness. She has also been having some migraine headaches. Apparently, been passing out. The patient was admitted for further evaluation of chest pain, syncopal spells and make further evaluation on her as indicated. PAST MEDICAL HISTORY: Anxiety, arthritis, asthma, post-surgical cholecystectomy, hysterectomy, oophorectomy, loss of hearing, migraine headaches, chronic allergy symptoms, vertigo, asthma, GERD, degenerative arthritis, depression, anxiety, psoriasis, history of lung nodules per bronchoscopy in 01/2016. FAMILY HISTORY: Basically unremarkable. SOCIAL HISTORY: The patient denies alcohol or drug use. Does smoke occasionally. MEDICATIONS: Tylenol p.r.n., Xanax 1 mg t.i.d., Protonix 40 mg daily, Lovenox 40 mg q. 12 p.r.n. ALLERGIES: FISH, , PENICILLINS, SULFUR, ASPIRIN, LATEX, and NABUMETONE. REVIEW OF SYSTEMS: The patient does have migraine headache, does have some blurred vision. Denies any trouble swallowing. Denies shortness of breath. Does have chest discomfort. Denies abdominal pain. Does have some mild nausea. No rebounding, no guarding. Neurologically, stable. PHYSICAL EXAMINATION: GENERAL: Pleasant white female. VITAL SIGNS: Blood pressure 115/73, respiratory rate 16, pulse 73, afebrile. HEENT: The patient's head was atraumatic, normocephalic. Eyes: PERRLA without jaundice. The mouth and throat were normal. NECK: Supple without JVD, carotid bruits, or thyromegaly. LUNGS: Diminished throughout, poor movement of air. CARDIOVASCULAR: Regular sinus rhythm, S1, S2, without murmur, rub, thrill, or extra heart sounds. ABDOMEN: Soft, nontender, no rebound or guarding, positive bowel sounds, no hepatosplenomegaly noted. EXTREMITIES: No clubbing, cyanosis, or edema. NEUROLOGIC: The patient was alert and oriented x 3. LABORATORY DATA: The patient's labs were basically unremarkable. Cardiac enzymes were negative. ASSESSMENT: Otherwise, the patient made good progress during the rest of her hospitalization and the patient's cardiac enzymes were negative. She was seen by Cardiology and we will make further evaluation on her as indicated per those results. Otherwise, the patient will continue to be monitored carefully, make further evaluation. DIET: Regular diet. MEDICATIONS: See MRAD. DISCHARGE INSTRUCTIONS: Heart healthy diet, decreased activity until she sees Cardiology. CARMINA BARRON MD DR: RUDI/christiana JOB#: [id number] / [id number]
== END 2016-11-18 16:04 | disposition home or self-care (01) | DRG 309 ==
LOC: ER 09:49 → UNDOADMOB 11:49 → OBSVTOIN 11:49 → 1 SOUTH 11:49
PROVIDERS: ADMIT Family Medicine; ATTEND Family Medicine
DX: I49.9 Cardiac arrhythmia, unspecified (principal); Z68.42 Body mass index [BMI] 45.0-49.9, adult; G43.909 Migraine, unspecified, not intractable, without status migrainosus; R07.89 Other chest pain; M54.12 Radiculopathy, cervical region; K21.9 Gastro-esophageal reflux disease without esophagitis; G47.30 Sleep apnea, unspecified; E66.01 Morbid (severe) obesity due to excess calories; F32.9 Major depressive disorder, single episode, unspecified; F41.0 Panic disorder [episodic paroxysmal anxiety]; H91.92 Unspecified hearing loss, left ear; F41.9 Anxiety disorder, unspecified; G89.29 Other chronic pain; R68.84 Jaw pain; L40.9 Psoriasis, unspecified; M19.90 Unspecified osteoarthritis, unspecified site; M54.9 Dorsalgia, unspecified; Z88.2 Allergy status to sulfonamides; Z88.8 Allergy status to other drugs, medicaments and biological substances; Z90.721 Acquired absence of ovaries, unilateral; Z88.6 Allergy status to analgesic agent; Z91.040 Latex allergy status; Z88.0 Allergy status to penicillin; Z91.013 Allergy to seafood; Z82.3 Family history of stroke; Z90.710 Acquired absence of both cervix and uterus; Z90.49 Acquired absence of other specified parts of digestive tract; J45.909 Unspecified asthma, uncomplicated; R42 Dizziness and giddiness
CPT/HCPCS: 36415; 70450; 71010; 80048; 80076; 81001; 82553; 83690; 83735; 83880; 84443; 84484; 85027; 85610; 85730; 93005; 93306; 94640; 94760; G0481; J1650; J7620; 99285-25; J7030

== ENCOUNTER → 2016-12-16 | Outpatient (CLI) | payer OTHER ==
[2016-11-18 16:02] VITALS: BP 136/92
--- NOTE | 2016-12-16 13:05 | RAD ---
Chest radiograph 12/16/2016 at 1233 hours Indication: Shortness of air Comparison: Chest radiograph 11/17/2016 Technique: Single frontal view of the chest is provided. Findings: Cardiomediastinal silhouette is within normal limits. No pleural effusions, pulmonary vascular congestion or pneumothorax. The lungs are clear. Mild dextroconvex curvature of the thoracic spine is noted. Impression: No acute cardiopulmonary process.
== END | disposition home or self-care (01) ==
LOC: LAB 12:25
PROVIDERS: ATTEND Family Medicine
DX: R06.02 Shortness of breath (principal)
CPT/HCPCS: 71010

== ENCOUNTER → 2017-04-06 | Outpatient (CLI) | payer OTHER ==
--- NOTE | 2017-04-06 09:13 | RAD ---
Examination: 3 views of the left wrist History: History of pain on the left wrist Comparison: None available Findings: The alignment of the carpal bones grossly appears unremarkable. There is severe joint space loss identified in the first metacarpal joint with osteophyte formation likely secondary to severe degeneration. Minimal subluxed appearance of the base of the first metacarpal in relation to the trapezium , probably due to positioning. Impression 1. Severe degenerative changes first carpometacarpal joint. 2. Minimal subluxed appearance of the base of the first metacarpal in relation to the trapezium , probably due to positioning. Correlate clinically.
== END | disposition home or self-care (01) ==
LOC: RAD 06:11
PROVIDERS: ATTEND Family Medicine
DX: M19.042 Primary osteoarthritis, left hand (principal); S63.062A Subluxation of metacarpal (bone), proximal end of left hand, initial encounter; X58.XXXA Exposure to other specified factors, initial encounter; Y93.89 Activity, other specified; Y92.89 Other specified places as the place of occurrence of the external cause; Y99.8 Other external cause status
CPT/HCPCS: 73110

== ENCOUNTER 2017-06-12 13:17 | Emergency (ER) | payer OTHER ==
[~2017-06-12] VITALS: Ht 160 cm; Wt 122.0 kg
[~2017-06-12 13:17] MED LIST changes: -IBUP200T43 PO; +IBUP200T44 PO
[2017-06-12] MEDS ORDERED: IPRATRPIUM/ALBUTEROL 0.5/2.5MG 3 ML NEBU. ONE (13:37)
[2017-06-12] MEDS ORDERED: methylPREDNISolone SOD SUCC PF 125 MG/2 ML VIAL. IV ONE (14:15)
[2017-06-12 14:27] LABS: BASO # 0.1 x10^3/uL (0.0-0.2); BASO % 1 % (0-3); EOS # 0.3 x10^3/uL (0.0-0.7); EOS % 4 % (0-3); LYMPH # 1.7 x10^3/uL (1.0-4.8); LYMPH % 23 % (24-48); MEAN CORPUSCULAR HEMOGLOBIN 30 pg (25-35); MEAN CORPUSCULAR HGB CONC 33 g/dL (31-37); MEAN CORPUSCULAR VOLUME 90 fL (79-100); MONO # 0.7 x10^3/uL (0.0-1.1); MONO % 9 % (0-9); NEUT # 4.7 x10^3uL (1.8-7.7); NEUT % 63 % (31-73); PLATELET COUNT 309 x10^3/uL (140-400); RED BLOOD COUNT 4.65 x10^6/uL (3.50-5.40); RED CELL DISTRIBUTION WIDTH 13.9 % (11.5-14.5); WHITE BLOOD COUNT 7.5 x10^3/uL (4.0-11.0)
[2017-06-12 14:30] LABS: CREATININE 0.8 mg/dL (0.6-1.0); GFR 73.2; POTASSIUM 3.9 mmol/L (3.5-5.1)
--- NOTE | 2017-06-12 14:36 | RAD ---
PA and lateral chest radiograph. History: Shortness of breath, asthma for a week. Comparison: January 10, 2015. Findings: Cardiac silhouette appears borderline enlarged. Bilateral lung sher appear clear without evidence of infiltrate, effusion, or pneumothorax. Dextroconvex scoliosis of the thoracic spine is seen. Impression: 1. Borderline enlargement of cardiac silhouette. 2. No acute cardiopulmonary process. Electronically signed by: Harinder Gutierrez MD (06/12/2017 2:33 PM) [place] [id number]
--- NOTE | 2017-06-12 15:03 | PHYS DOC ---
General Chief Complaint: MULTIPLE COMPLAINTS Stated Complaint: SOA,COUGH,HEAD PRESSURE Time Seen by MD: 13:32 Source: patient Exam Limitations: no limitations Problems: History of Present Illness Initial Comments Patient is 62-year-old female who with history of asthma comes to the ED complaining of shortness of breath headache. States that for the past 5-7 days she's had worsening nonproductive cough wheeze and dyspnea on exertion. She states that her chest muscles are very sore from the coughing and she's had some chills and sweats but no measured fevers. Cough is nonproductive she's been using her home nebulizers with minimal improvement. On arrival respirations 2492% room air she is afebrile. She advises me up front that she will not agree to admission, she is employed by [employer]. Timing/Duration: 1 week Severity: severe Modifying Factors: worse with movement, improves with rest Associated Symptoms: cough, diaphoresis, headaches, malaise, shortness of breath Allergies: Coded Allergies: fish derived (Verified Allergy, Intermediate, 11/07/14) nabumetone (Verified Allergy, Intermediate, 01/08/15) tizanidine (Verified Allergy, Intermediate, 01/08/15) Penicillins (Verified Adverse Reaction, Intermediate, 11/07/14) Sulfa (Sulfonamide Antibiotics) (Verified Adverse Reaction, Intermediate, 11/07/14) aspirin (Verified Adverse Reaction, Intermediate, 11/07/14) latex (Verified Adverse Reaction, Intermediate, 11/07/14) Past Medical History Medical History: other (anxiety, arthritis, asthma,) Surgical History: noncontributory, other Family History Significant Family History: no pertinent family hx Social History Smoker: quit greater than 1 year Alcohol: none Drugs: none Review of Systems Constitutional: see HPI Respiratory: see HPI Cardiovascular: denies chest pain, denies syncope Gastrointestinal: denies diarrhea, denies nausea, denies vomiting Musculoskeletal: denies back pain, denies joint swelling, denies muscle stiffness, denies neck pain Psychiatric/Neurological: see HPI Hematologic/Lymphatic: denies blood clots, denies easy bleeding, denies easy bruising Physical Exam General Appearance: mild distress (conversational dyspnea) Ear, Nose, Throat: hearing grossly normal, normal ENT inspection, normal pharynx Neck: non-tender, supple Respiratory: other (decreased breath sounds bilaterally with some wheezes chest nontender mild respiratory distress) Cardiovascular: normal peripheral pulses, regular rate, rhythm Gastrointestinal: non tender, soft Extremities: normal range of motion, non-tender (one plus nonpitting lower extremity edema) 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 PHYSICIAN: SAMMY JACKSON DO REASON: cough/sob/asthma PROCEDURE: CHEST PA & LATERAL PA and lateral chest radiograph. History: Shortness of breath, asthma for a week. Comparison: January 10, 2015. Findings: Cardiac silhouette appears borderline enlarged. Bilateral lung sher appear clear without evidence of infiltrate, effusion, or pneumothorax. Dextroconvex scoliosis of the thoracic spine is seen. Impression: 1. Borderline enlargement of cardiac silhouette. 2. No acute cardiopulmonary process. Electronically signed by: Harinder Mcdaniel MD (06/12/2017 2:33 PM) [place] [id number] DICTATED AND SIGNED BY: HARINDER MCDANIEL MD DATE: 06/12/17 1432 CC: CARMINA BARRON MD; SAMMY JACKSON DO ~ Patient received multiple nebulizers as well as Solu-Medrol intravenously. Her oxygen saturation hovers around 90% but with any effort drops to the upper 80s. Inpatient treatment strongly recommended and patient refused. I discussed risks and benefits of staying treatment versus leaving. Possible benefits for staying include early diagnosis and treatment plan easily treated condition potentially lifesaving. Risks of leaving include loss of quality of life and . She is alert and oriented 3 not under the intoxicating substance and exhibits UCAR capacity. Despite a prolonged conversation trying to persuade the patient to stay she remained determined in her wishes to leave AGAINST MEDICAL ADVICE. I discussed the treatment plan with her in detail and her questions were answered she expressed agreement and understanding. Departure Time of Disposition: 16:14 Disposition: 01 HOME, SELF-CARE Diagnosis: asthma exacerbation, respiratory distress, hypoxia Condition: GUARDED Patient Instructions: Hypoxemia Additional Instructions: Please review the patient education materials given by ED staff. As discussed is been strongly recommended to you that you be admitted to the hospital for inpatient treatment due to respiratory distress/failure. Your aware of the risks and benefits of staying for treatment versus leaving AGAINST MEDICAL ADVICE. Potential benefits of staying are early diagnosis and treatment of an underlying condition, potentially lifesaving. Risks of leaving include worsening of condition, loss of quality of life, and . Continue current medications and nebulizer treatments. Recommend rest with very little activity until follow-up with your doctor, school and work excuse until cleared by your doctor. Prescriptions: Zithromax, prednisone Follow-up with Dr. Barron Thursday for recheck. Return to the ED should she change her mind oh with new or worsening condition. SAMMY JACKSON DO Jun 12, 2017 15:03
[2017-06-12 15:13] LABS: INFLUENZA A PATIENT NEGATIVE (NEGATIVE); INFLUENZA B PATIENT NEGATIVE (NEGATIVE)
[2017-06-12] MEDS ORDERED: AZIT250T PO (16:19)
[2017-06-12] MEDS ORDERED: PRED20TA PO (16:19)
[2017-06-12 16:24] VITALS: BP 135/97
== END 2017-06-12 16:28 | disposition home or self-care (01) ==
LOC: ER 13:17
DX: J45.901 Unspecified asthma with (acute) exacerbation (principal); R06.03 Acute respiratory distress; R09.02 Hypoxemia; F41.9 Anxiety disorder, unspecified; Z87.891 Personal history of nicotine dependence; Z88.2 Allergy status to sulfonamides; Z88.8 Allergy status to other drugs, medicaments and biological substances; Z91.040 Latex allergy status; Z91.013 Allergy to seafood; Z88.0 Allergy status to penicillin
CPT/HCPCS: 36415; 71046; 80048; 83880; 84484; 85025; 87804; 96374; 99285; J2930

== ENCOUNTER → 2017-07-15 | Outpatient (CLI) | payer OTHER ==
[~2017-07-15] MED LIST changes: +AZIT250T PO
--- NOTE | 2017-07-15 16:58 | RAD ---
CT chest without intravenous contrast History: Acute bronchitis for the last month, intermittent hypoxia. J 20.8. Comparison: None. Technique: Helical CT of the chest was performed without intravenous contrast. Exposure: One or more of the following individualized dose reduction techniques were utilized for this examination: 1. Automated exposure control 2. Adjustment of the mA and/or kV according to patient size 3. Use of iterative reconstruction technique Findings: Visualized thyroid is symmetric. Trachea and mainstem bronchi appear patent. Mild amount of soft tissue density is seen in the anterior mediastinum which does not appear to be border forming; this might represent a mild amount of residual thymic tissue, although that would be atypical for patient's age. No mediastinal lymphadenopathy is seen. Mild coronary artery calcifications are present. No pericardial thickening or cardiac chamber enlargement is identified. No pneumothorax or pleural effusion is seen. No acute airspace disease is identified. Several small nonspecific soft tissue pulmonary nodules are seen. The lobe demonstrates 4 mm soft tissue pulmonary nodule (axial image 13). Left upper lobe demonstrates 3 mm soft tissue pulmonary nodule (axial image 15). Left upper lobe demonstrates 5 mm soft tissue pulmonary nodule (axial image 50). Right lower lobe demonstrates 4 mm soft tissue pulmonary nodule (axial image 51). Left lower lobe adjacent to the pleura demonstrates 4 mm soft tissue pulmonary nodule (axial image 69). Images of the upper abdomen demonstrate cholecystectomy clips. S-shaped scoliosis of the thoracic and upper lumbar spine is seen. Impression: 1. No acute abnormality identified in the chest. 2. Multiple soft tissue pulmonary nodules measuring up to 5 mm. By Fleischner 2017 guidelines, recommend follow-up chest CT without contrast in 12 months. 3. Mild amount of soft tissue density is seen in the anterior mediastinum. This might represent a mild amount of residual thymic tissue, but would be atypical for patient's age. This could reveal be reassessed on follow-up CT chest for the pulmonary nodules, although follow-up CT imaging could be performed sooner if clinically indicated. Recommend clinical correlation. Electronically signed by: Harinder Gutierrez MD (07/15/2017 4:55 PM) [place] [id number]
== END | disposition home or self-care (01) ==
LOC: CT 12:58
PROVIDERS: ATTEND Family Medicine
DX: J20.8 Acute bronchitis due to other specified organisms (principal); R91.8 Other nonspecific abnormal finding of lung field; Z87.891 Personal history of nicotine dependence
CPT/HCPCS: 71250

== ENCOUNTER 2017-08-01 17:10 | Emergency (ER) | payer OTHER ==
[~2017-08-01] VITALS: Ht 160 cm; Wt 124.5 kg
[2017-08-01 17:20] VITALS: BP 147/93
--- NOTE | 2017-08-01 18:22 | PHYS DOC ---
Past History Past Medical History: Anxiety, Arthritis, Asthma, UTI, Other Past Surgical History: Cholecystectomy, Hysterectomy, Oophorectomy, Other Alcohol Use: None Drug Use: None Adult General Chief Complaint Chief Complaint: MECHANICAL FALL HPI HPI Patient is a 62-year-old female who presents ambulatory to the ED. She states she slipped and fell in the shower about one hour ago. She fell face first but states she did not get a head injury. She fell on the entire left side of her body. She is complaining of pain in her left arm, her low back and left hip. Review of Systems Review of Systems Constitutional: Denies fever or chills [] Musculoskeletal: As in history of present illness Integument: Denies skin injury Neurologic: Denies headache, or loss of consciousness Allergies Allergies Allergies Coded Allergies Type Severity Reaction Last Updated Verified fish derived Allergy Intermediate 11/07/14 Yes nabumetone Allergy Intermediate 01/08/15 Yes tizanidine Allergy Intermediate 01/08/15 Yes Penicillins Adverse Reaction Intermediate 11/07/14 Yes Sulfa (Sulfonamide Antibiotics) Adverse Reaction Intermediate 11/07/14 Yes aspirin Adverse Reaction Intermediate 11/07/14 Yes latex Adverse Reaction Intermediate 11/07/14 Yes Physical Exam Physical Exam Constitutional: Obese female, ambulatory, alert, no acute distress. HENT: Normocephalic, atraumatic, bilateral external ears normal, nose normal. [] Eyes: conjunctiva normal, no discharge. [] Neck: Normal range of motion, no stridor. [] Skin: Warm, dry, no erythema, no rash. [] Back: Mildly tender over the lumbar spine in the midline, no other tenderness. Left hip mildly tender posteriorly and laterally. Extremities: Left upper extremity: Clavicle, shoulder, humerus: No bony tenderness. Elbow no bony tenderness or swelling. Forearm mild generalized tenderness. Wrist with distal radius tenderness, no snuffbox tenderness. No deformity of left upper extremity. Neurologic: Alert and oriented X 3, normal motor function, no focal deficits noted. [] Current Patient Data Vital Signs Vital Signs Date Time Temp Pulse Resp B/P (MAP) Pulse Ox O2 Delivery O2 Flow Rate FiO2 08/01/17 17:20 97.6 80 16 92 Room Air EKG EKG [] Radiology/Procedures Radiology/Procedures Three-view x-ray of the left wrist read by me. Degenerative change, no acute findings. No fracture. Two-view x-ray of the left forearm read by me. No acute findings. Three-view x-ray of the lumbosacral spine read by me. Degenerative disease diffusely, no bony injury, no acute findings. Two-view x-ray of the left hip and AP pelvis read by me. No acute findings.[] Course & Med Decision Making Course & Med Decision Making Pertinent Labs and Imaging studies reviewed. (See chart for details) 62-year-old female presents after a fall in the shower at home. X-rays are negative for acute findings. The patient will be stiff and sore tomorrow due to contusions. See instructions for plan. [] Dragon Disclaimer Dragon Disclaimer This electronic medical record was generated, in whole or in part, using a voice recognition dictation system. Departure Departure: Impression: Primary Impression: Contusion of left wrist Additional Impressions: Contusion of left forearm Contusion of left hip Lumbar strain Disposition: 01 HOME, SELF-CARE Condition: STABLE Referrals: CARMINA BARRON MD (PCP) Patient Instructions: Contusion, [id number] Additional Instructions: You will be more sore in the morning and should improve over the next several days. Use ice to all the areas of aches and pains. You may take your usual anti- inflammatory pain medication as needed. If anything continues to hurt after 3-5 days, recheck with your doctor. Problem Qualifiers LAI ORANTES MD Aug 01, 2017 18:22
--- NOTE | 2017-08-02 09:04 | RAD ---
Three-view left wrist radiographs August 01, 2018 Clinical history: Fall with injury to the left wrist. PA, lateral and oblique digital radiographs of left wrist were obtained. Comparison study is dated 04/06/2017. No fracture or dislocation of the left wrist is seen. Severe degenerative changes are seen involving the first carpometacarpal joint. Impression: No fracture or dislocation of the left wrist is seen.
--- NOTE | 2017-08-02 09:05 | RAD ---
AP and lateral left forearm radiographs 08/01/2017 Clinical history: Left forearm pain post injury. AP and lateral digital radiographs of the left forearm were obtained. No fracture or dislocation is seen. No radiopaque foreign body is noted. Impression: No fracture or dislocation of the left forearm is seen.
--- NOTE | 2017-08-02 09:11 | RAD ---
Three-view lumbar spine radiographs August 01, 2017 Clinical history: Low back pain. AP and 2 lateral digital radiographs of lumbar spine were obtained. Mild S shaped curvature of the thoracolumbar spine is seen. No fracture or subluxation of the lumbar vertebrae seen. Degenerative changes are seen predominantly at the L2-3 and L5-S1 disc spaces consisting of disc space narrowing, vertebral endplate sclerosis and mild to moderate anterior and posterior vertebral body osteophyte formation. Atherosclerotic calcification is seen involving the abdominal aorta. Calcifications are seen within the pelvis consistent with phleboliths. Impression: No fracture or subluxation of the lumbar vertebrae is seen.
--- NOTE | 2017-08-02 09:13 | RAD ---
AP radiograph of the pelvis to include AP and lateral radiographs of the left hip 08/01/2017 Clinical history: Fall with left hip pain. An AP digital radiograph of the pelvis to include both hips was obtained. AP and lateral digital radiographs of the left hip were obtained. Comparison study is dated 08/08/2014. No pelvic bone fracture is seen. No fracture or dislocation of either hip is noted. Calcifications are seen within the pelvis consistent with phleboliths. Impression: No fracture or dislocation is seen.
== END 2017-08-01 18:44 | disposition home or self-care (01) ==
LOC: ER 17:10
DX: S39.012A Strain of muscle, fascia and tendon of lower back, initial encounter (principal); S60.212A Contusion of left wrist, initial encounter; S50.12XA Contusion of left forearm, initial encounter; S70.02XA Contusion of left hip, initial encounter; J45.909 Unspecified asthma, uncomplicated; F41.9 Anxiety disorder, unspecified; M19.90 Unspecified osteoarthritis, unspecified site; Z87.440 Personal history of urinary (tract) infections; Z88.2 Allergy status to sulfonamides; Z88.8 Allergy status to other drugs, medicaments and biological substances; Z88.6 Allergy status to analgesic agent; Z91.040 Latex allergy status; Z88.0 Allergy status to penicillin; Z91.013 Allergy to seafood; W01.0XXA Fall on same level from slipping, tripping and stumbling without subsequent striking against object, initial encounter; Y93.E1 Activity, personal bathing and showering; Y99.8 Other external cause status; Y92.89 Other specified places as the place of occurrence of the external cause
CPT/HCPCS: 72100; 73090; 73110; 73501; 99284

== ENCOUNTER 2017-08-14 16:18 | Observation (INO) | payer OTHER ==
[~2017-08-14] VITALS: Ht 162.6 cm; Wt 122.5 kg
--- NOTE | 2017-08-14 16:59 | EKG ---
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
[2017-08-14] MEDS ORDERED: IPRATRPIUM/ALBUTEROL 0.5/2.5MG 3 ML NEBU. NEB ONE (17:15)
[2017-08-14 17:39] LABS: BASO # 0.1 x10^3/uL (0.0-0.2); BASO % 1 % (0-3); EOS # 0.5 x10^3/uL (0.0-0.7); EOS % 6 % (0-3); HEMATOCRIT 43.2 % (36.0-47.0); HEMOGLOBIN 14.6 g/dL (12.0-15.5); LYMPH # 2.4 x10^3/uL (1.0-4.8); LYMPH % 28 % (24-48); MEAN CORPUSCULAR HEMOGLOBIN 30 pg (25-35); MEAN CORPUSCULAR HGB CONC 34 g/dL (31-37); MEAN CORPUSCULAR VOLUME 87 fL (79-100); MONO # 0.5 x10^3/uL (0.0-1.1); MONO % 6 % (0-9); NEUT % 59 % (31-73); PLATELET COUNT 314 x10^3/uL (140-400); RED BLOOD COUNT 4.95 x10^6/uL (3.50-5.40); RED CELL DISTRIBUTION WIDTH 13.6 % (11.5-14.5); WHITE BLOOD COUNT 8.4 x10^3/uL (4.0-11.0)
--- NOTE | 2017-08-14 17:44 | PHYS DOC ---
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 Patient complaining of right flank and upper abdominal pain since yesterday intermittently with movement and taking deep breaths that last for one or 2 minutes and repeated frequently. Patient states the pain radiated to her thoracic area. Patient denies chest pain, fever and chills, nausea and vomiting, diarrhea and constipation, urinary symptom. Patient rated her pain 8/ 10 and states she 2 [id number] pain medication without improvement of her pain. Review of Systems Review of Systems Constitutional: Denies fever or chills [] Eyes: Denies change in visual acuity, redness, or eye pain [] HENT: Denies nasal congestion or sore throat [] Respiratory: Denies cough or shortness of breath [] Cardiovascular: No additional information not addressed in HPI [] GI: Denies abdominal pain, nausea, vomiting, bloody stools or diarrhea [] : Denies dysuria or hematuria [] Musculoskeletal: Denies back pain or joint pain [] Integument: Denies rash or skin lesions [] Neurologic: Denies headache, focal weakness or sensory changes [] Endocrine: Denies polyuria or polydipsia [] All other systems were reviewed and found to be within normal limits, except as documented in this note. Current Medications Current Medications Current Medications Medications (Trade) Dose Ordered Sig/[facility] Start Time Stop Time Status Last Admin Dose Admin Albuterol/ Ipratropium (Duoneb) 3 ml 1X ONCE 08/14/17 17:15 08/14/17 17:19 DC 08/14/17 17:20 3 ML Allergies Allergies Allergies Coded Allergies Type Severity Reaction Last Updated Verified fish derived Allergy Intermediate 11/07/14 Yes nabumetone Allergy Intermediate 01/08/15 Yes tizanidine Allergy Intermediate 01/08/15 Yes Penicillins Adverse Reaction Intermediate 11/07/14 Yes Sulfa (Sulfonamide Antibiotics) Adverse Reaction Intermediate 11/07/14 Yes aspirin Adverse Reaction Intermediate 11/07/14 Yes latex Adverse Reaction Intermediate 11/07/14 Yes Physical Exam Physical Exam Constitutional: Well developed, well nourished, mild distress, non-toxic appearance, anxious [] HENT: Normocephalic, atraumatic Eyes: PERRLA, EOMI, conjunctiva normal, no discharge. [] Neck: Normal range of motion, no tenderness, supple, no stridor. [] Cardiovascular:Heart rate regular rhythm, no murmur [] Lungs & Thorax: Bilateral breath sounds clear to auscultation , no chest wall deformity or crepitation, mild right anterior chest wall tenderness[] Abdomen: Bowel sounds normal, soft, no tenderness, no masses, no pulsatile masses. [] Skin: Warm, dry, no erythema, no rash. [] Back: No tenderness, no CVA tenderness. [] Extremities: No tenderness, no cyanosis, no clubbing, ROM intact, no edema. [] Neurologic: Alert and oriented X 3, normal motor function, normal sensory function, no focal deficits noted. [] Psychologic: Affect normal, judgement normal, mood normal. [] Current Patient Data Vital Signs Vital Signs Date Time Temp Pulse Resp B/P (MAP) Pulse Ox O2 Delivery O2 Flow Rate FiO2 08/14/17 17:22 93 Room Air EKG EKG EKG interpreted by me. EKG at 1655 showed normal sinus rhythm at rate of 78, leftward axis deviation, no acute ST and T-wave abnormalities[] Radiology/Procedures Radiology/Procedures [] Course & Med Decision Making Course & Med Decision Making Pertinent Labs and Imaging studies are pending. Patient care transferred to Dr. Mehta at 1800.[] Dragon Disclaimer Dragon Disclaimer This electronic medical record was generated, in whole or in part, using a voice recognition dictation system. Departure Departure: Impression: Primary Impression: Right-sided chest wall pain Referrals: CARMINA BARRON MD (PCP) SHILO LAUREN MD Aug 14, 2017 17:44
[2017-08-14] MEDS ORDERED: ORPHENADRINE CITRATE 60 MG/2 ML VIAL. IV ONE (18:00)
[2017-08-14 18:07] LABS: ALBUMIN 3.7 g/dL (3.4-5.0); ALBUMIN/GLOBULIN RATIO 1.1 (1.0-1.7); CALCIUM 9.2 mg/dL (8.5-10.1); CREATININE 0.7 mg/dL (0.6-1.0); GFR 85.4; POTASSIUM 4.3 mmol/L (3.5-5.1); TOTAL BILIRUBIN 0.4 mg/dL (0.2-1.0); TOTAL PROTEIN 7.1 g/dL (6.4-8.2)
[2017-08-14] MEDS ORDERED: CONTRAST GIVEN MC PRN (18:45)
[2017-08-14] MEDS ORDERED: IOHEXOL 300 MG/ML 75 ML VIAL. IV ONE (18:45)
[2017-08-14] MEDS ORDERED: diphenhydrAMINE 50 MG/ML VIAL IVP ONE (19:15)
[2017-08-14] MEDS ORDERED: methylPREDNISolone SOD SUCC PF 125 MG/2 ML VIAL. IV ONE (19:15)
[2017-08-14] MEDS ORDERED: ONDANSETRON PF 4 MG/2 ML VIAL. IV PRN (20:15)
--- NOTE | 2017-08-14 21:29 | RAD ---
Indication: Chest pain. Recent fall. TECHNIQUE: CT chest without IV contrast with multiplanar reformats. Patient allergic to IV contrast. COMPARISON: Previous study from 07/15/2017 FINDINGS: Limited exam due to lack of IV contrast. Heart is normal in size. No pericardial or pleural effusion. Stable amorphous appearing soft tissue in the prevascular space likely thymic rebound or pelvic hyperplasia. No axillary, mediastinal or hilar adenopathy. 5 mm nodule in the right lung apex (series 2 image 16) 5 mm nodule in the subpleural right lower lobe (series 2 image 52). 2 mm nodule in the right major fissure (series 2 image 43). 5 mm nodule in the subpleural left lung apex (series 2 image 17). 4 mm nodule in the left upper lobe (series 2 image 29). 4 mm nodule in the subpleural lingula (series 2 image 49). 6 mm nodule in the left major fissure (series 2 image 54). Subsegmental atelectasis seen along the right major fissure. Noncontrast sections through the liver, spleen, adrenals, pancreas and kidneys are within normal limits. Mild scoliosis of the thoracic spine. No acute fractures or suspicious bony lesion. IMPRESSION: 1. Stable multiple bilateral pulmonary nodules. Follow-up CT chest in one year recommended. 2. 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 Electronically signed by: Rah Da Silva DO (08/14/2017 9:26 PM) [facility]
[2017-08-14] MEDS ORDERED: CYCL1DRO EACHEYE (21:36)
--- NOTE | 2017-08-14 22:05 | RAD ---
Indication: Chest wall pain for one the. Shortness of breath. TECHNIQUE: Ventilation scan was performed after inhalation of 33 mCi of xenon-133. Perfusion scan was performed after injection of 5.5 mCi of technetium 99M MAA. COMPARISON: CT chest from the same day FINDINGS: Homogeneous distribution of xenon-133 seen in the lungs on ventilation scan with mild retention. Relatively homogeneous distribution of perfusion agent seen without wedge-shaped ventilation perfusion mismatch. IMPRESSION: 1. Low probability VQ scan. 2. Findings of COPD. Electronically signed by: Rah Da Silva DO (08/14/2017 10:02 PM) [facility]
[2017-08-14] MEDS ORDERED: DOCU-109 PO (22:14)
[2017-08-14] MEDS ORDERED: ALBUTEROL SULFATE 8GM INHALER. IH PRN (22:15)
[2017-08-14] MEDS ORDERED: NON FORMULARY ITEM (Albuterol Sulfate (Albuterol Sulfate Neb Soln) 1 VIAL) NEB PRN (22:15)
--- NOTE | 2017-08-14 22:19 | RAD ---
Indication: Right chest wall pain and shortness of breath for one week. TECHNIQUE: Multiple views of the right ribs COMPARISON: None FINDINGS: Heart is normal in size. Lungs are clear. No pneumothorax or pleural effusion. No acute rib fractures. Mild dextroscoliosis of the midthoracic spine. IMPRESSION: No acute findings. Electronically signed by: Rah Da Silva DO (08/14/2017 10:15 PM) [facility]
[2017-08-14] MEDS: DOCUSATE SODIUM 100 MG CAPSULE PO SCH (22:45)
[2017-08-14] MEDS: cycloSPORINE 0.05% OPTH 1 DROP DROPERETTE OU SCH (22:45)
[2017-08-14] MEDS ORDERED: ALBUTEROL SULFATE 2.5 MG/3 ML NEBU. NEB PRN (22:45)
[2017-08-14] MEDS: IBUPROFEN 800 MG TABLET. PO PRN (22:45)
[2017-08-14] MEDS: ALPRAZolam 0.5 MG TABLET PO SCH (22:45)
[2017-08-14 23:00] VITALS: BP 148/78
[2017-08-14] MEDS ORDERED: traZODone 100 MG TABLET. PO SCH (23:00)
[2017-08-15] MEDS ORDERED: POLYETHYLENE GLYCOL 3350 17 GM PACKET. PO PRN (00:15)
[2017-08-15] MEDS ORDERED: POLY17PO5 PO (00:15)
[2017-08-15 05:29] VITALS: BP 99/57
[2017-08-15] MEDS: IBUPROFEN 800 MG TABLET. PO PRN (06:33)
[2017-08-15] MEDS ORDERED: IPRATRPIUM/ALBUTEROL 0.5/2.5MG 3 ML NEBU. NEB SCH (08:00)
[2017-08-15] MEDS: IPRATRPIUM/ALBUTEROL 0.5/2.5MG 3 ML NEBU. NEB SCH ×3 (08:00→09:47)
[2017-08-15] MEDS: ALPRAZolam 0.5 MG TABLET PO SCH (08:29)
[2017-08-15] MEDS: cycloSPORINE 0.05% OPTH 1 DROP DROPERETTE OU SCH (08:29)
[2017-08-15] MEDS: DOCUSATE SODIUM 100 MG CAPSULE PO SCH (08:29)
[2017-08-15] MEDS ORDERED: NON FORMULARY ITEM (Ipratropium/Albuterol Sulfate (Combivent Respimat Inhal) 4 GM) IH SCH (09:00)
[2017-08-15] MEDS ORDERED: CETIRIZINE HCL 10 MG TABLET PO SCH (09:00)
[2017-08-15] MEDS ORDERED: PANTOPRAZOLE 40 MG TABLET. PO SCH (09:00)
[2017-08-15 10:32] VITALS: BP 128/73
[2017-08-15] MEDS ORDERED: AZIT1PAC PO (10:57)
--- NOTE | 2017-08-15 12:29 | HP ---
ADMIT DATE: 08/14/2017 HISTORY OF PRESENT ILLNESS: This 62-year-old female apparently fell a week or so ago, but here in the last day or so has been having problems with complaining of right flank, right abdominal as well as right rib cage pain, fairly severe, usually worse with deep breaths. The patient has a history of asthma in the past. She does have some night sweats. Denies chest pain outside of that right flank pain. Denies nausea or vomiting. The patient was admitted for further evaluation and rule out MA protocol with the chest pain per se as well as she has multiple risk factors for heart disease, but apparently she had some nuclear medicine scan about 2-3 years ago. PAST MEDICAL HISTORY: Tonsillectomy, adenoidectomy, vertigo, morbid obesity, GERD, reproductive disorders, hysterectomy, arthritis, orthopedic surgery, back pain, psychiatric problems panic disorder, depression, influenza and pneumococcal vaccines up-to-date. PAST SURGICAL HISTORY: Rotator cuff surgery, cholecystectomy, hernia repair x 2. ALLERGIES: PENICILLIN, SULFUR, ASPIRIN, FISH DERIVED, LATEX, NABUMETONE, and TIZANIDINE. HOME MEDICATIONS: Reviewed. SOCIAL HISTORY: The patient denies smoking, alcohol, or drug use. REVIEW OF SYSTEMS: The patient denies headaches, visual change, blurred vision, double vision, just a chest wall on the right side and flank pain. The patient does have shortness of breath with exertion. CARDIOVASCULAR: Regular sinus rhythm. ABDOMEN: Soft. No nausea or vomiting. No melena, hematochezia, or hematemesis. NEUROLOGIC: Intact. PHYSICAL EXAMINATION: GENERAL: This is a very pleasant white female in fair amount of pain. VITAL SIGNS: The patient's blood pressure is 128/70, respiratory rate 20, pulse 93, afebrile. HEENT: The patient's head was atraumatic, normocephalic. Eyes: PERRLA without jaundice. The mouth and throat were normal. NECK: Supple without JVD or carotid bruits. No thyromegaly. LUNGS: Diminished. Poor movement of air, but clear. CARDIOVASCULAR: Regular sinus rhythm. Tenderness to the right rib cage on palpation. ABDOMEN: Soft and nontender except in the right flank area with some tenderness. No rebounding, no masses noted, no hepatosplenomegaly. EXTREMITIES: Clubbing, cyanosis, or edema negative. Pulses noted distally. NEUROLOGIC: The patient was alert and oriented x 3. Speech fluent, spontaneous, and appropriate. Cranial nerves 2-12 grossly intact there. LABORATORY DATA: The patient's labs were basically unremarkable. Cardiac enzymes negative. CBC did show an increase in eosinophils. Imaging down from the ER, the patient's right ribs negative for fracture. V/Q scan negative for pulmonary emboli. CT scans with numerous small nodules. She has been seen by pulmonology, Dr. Cabrera for her nodules. Recommended and gave her a copy of tests to get repeated in 1 year. IMPRESSION: Chest wall pain, right side and some shortness of breath. The patient will be monitored carefully and make further evaluation on her and rule out MA protocol. CARMINA BARRON MD DR: RUDI/christiana JOB#: [id number] / [id number]
== END 2017-08-15 12:05 | disposition home or self-care (01) ==
LOC: ER 16:18 → INTOOBSV 20:16 → 1 SOUTH 20:16 → ER 21:12
PROVIDERS: ADMIT Family Medicine; ATTEND Family Medicine
DX: R07.89 Other chest pain (principal); K21.9 Gastro-esophageal reflux disease without esophagitis; M19.90 Unspecified osteoarthritis, unspecified site; F32.9 Major depressive disorder, single episode, unspecified; J45.909 Unspecified asthma, uncomplicated
CPT/HCPCS: 36415; 71101; 71250; 78582; 80053; 82553; 83605; 83880; 84484; 85025; 93005; 94640; 96374; 96375; 99285; A9540; A9558; G0238; G0378; J1200; J2360; J2930; J7620; G0379

== ENCOUNTER 2017-08-19 10:14 | Emergency (ER) | payer OTHER ==
[~2017-08-19] VITALS: Ht 162.6 cm; Wt 124.5 kg
[~2017-08-19 10:14] MED LIST changes: +AZIT1PAC PO; +CYCL1DRO EACHEYE
[2017-08-19 11:00] VITALS: BP 152/88
--- NOTE | 2017-08-19 11:52 | ED.ADGEN ---
Past History Past Medical History: Anxiety, Arthritis, Asthma, UTI, Other Past Surgical History: Cholecystectomy, Hysterectomy, Oophorectomy, Other Alcohol Use: Occasionally Drug Use: None Adult General Chief Complaint Chief Complaint chest wall pain HPI HPI Patient is a 62-year-old female who presents with right mid thoracic pain radiating to right anterior chest. Pain has been intermittent. Patient was evaluated in this emergency department 3 days ago for the same and was subsequently admitted to the hospital. Patient had chest x-ray, CT and V/Q scans which were nondiagnostic. Patient had previous negative cardiac stress test and negative cardiac enzymes during most recent hospital stay. Pain reproduces with arm physician change and trunk movement. Pain localizes over posterior ribs. Patient denies falls or injuries. denies shortness of breath, no nausea vomiting fever chills or sweats. No abdominal pain or tenderness.patient is taking ibuprofen for her symptoms today with limited relief.] Review of Systems Review of Systems ROS as per HPI. All other systems were reviewed and found to be within normal limits, except as documented in this note. Allergies Allergies Allergies Coded Allergies Type Severity Reaction Last Updated Verified fish derived Allergy Intermediate 11/07/14 Yes nabumetone Allergy Intermediate 01/08/15 Yes tizanidine Allergy Intermediate 01/08/15 Yes Penicillins Adverse Reaction Intermediate 11/07/14 Yes Sulfa (Sulfonamide Antibiotics) Adverse Reaction Intermediate 11/07/14 Yes aspirin Adverse Reaction Intermediate 11/07/14 Yes latex Adverse Reaction Intermediate 11/07/14 Yes Physical Exam Physical Exam Constitutional: Well developed, well nourished, no acute distress, non-toxic appearance. [] HENT: Normocephalic, atraumatic, bilateral external ears normal, oropharynx moist, no oral exudates, nose normal. [] Eyes: PERRLA, EOMI, conjunctiva normal, no discharge. [] Neck: Normal range of motion, no tenderness, supple, no stridor. [] Cardiovascular:Heart rate regular rhythm, no murmur [] Lungs & Thorax: Bilateral breath sounds clear to auscultation [] Abdomen: Bowel sounds normal, soft, no tenderness. [] Skin: Warm, dry. [] Back: No midline bony pain tenderness, right middle parasrustic muscle/pain tenderness over lying rib reproducing symptoms or complaints. Pain radiates into her chest is reproduced with raising arms above head. [] Extremities: No tenderness. [] Neurologic: Alert and oriented X 3, normal motor function, normal sensory function, no focal deficits noted. [] Psychologic: Affect normal, judgement normal, mood normal. [] Current Patient Data Vital Signs Vital Signs Date Time Temp Pulse Resp B/P (MAP) Pulse Ox O2 Delivery O2 Flow Rate FiO2 08/19/17 11:00 87 20 152/88 (109) 95 Room Air 08/19/17 10:36 97.4 EKG EKG [] Radiology/Procedures Radiology/Procedures [] Course & Med Decision Making Course & Med Decision Making Pertinent Labs and Imaging studies reviewed. (See chart for details) [Recurrence of musculoskeletal pain and extensively evaluated in the emergency department injuring hospital stay 2 days ago. Pain is likely exacerbated with work today. Pain is fully reproducible without cardiac features. Recent labs and imaging studies reviewed. no other studies are indicated at this time.Recommend short course of narcotic pain medication muscle relaxants and PCP follow-up for further treatment] Final Impression Final Impression [#1 right sided chest wall pain] Problems: Dragon Disclaimer Dragon Disclaimer This electronic medical record was generated, in whole or in part, using a voice recognition dictation system. KEVIN BROWN DO Aug 19, 2017 11:52
== END 2017-08-19 11:10 | disposition home or self-care (01) ==
LOC: ER 10:14
DX: R07.89 Other chest pain (principal); M54.6 Pain in thoracic spine; F41.9 Anxiety disorder, unspecified; M19.90 Unspecified osteoarthritis, unspecified site; J45.909 Unspecified asthma, uncomplicated; Z87.440 Personal history of urinary (tract) infections; Z90.49 Acquired absence of other specified parts of digestive tract; Z90.710 Acquired absence of both cervix and uterus; Z88.2 Allergy status to sulfonamides; Z88.8 Allergy status to other drugs, medicaments and biological substances; Z88.6 Allergy status to analgesic agent; Z91.040 Latex allergy status; Z88.0 Allergy status to penicillin; Z91.013 Allergy to seafood
CPT/HCPCS: 99281; 99283

== ENCOUNTER → 2017-11-17 | Outpatient (CLI) | payer OTHER ==
[~2017-11-17] MED LIST changes: +TRAZ-86 PO; -TRAZ-90 PO
[2017-11-17 10:50] LABS: BILIRUBIN,URINE NEG (NEG); CLARITY,URINE HAZY; COLOR,URINE YELLOW; GLUCOSE,URINE NEG (NEG); NITRITE,URINE NEG (NEG); UROBILINOGEN,URINE 0.2 mg/dL (0.2 mg/dL)
[2017-11-17 10:51] LABS: BACTERIA,URINE FEW /HPF (0-FEW); RBC,URINE OCC /HPF (0-2); SQUAMOUS EPITHELIAL CELL,UR FEW /LPF
[2017-11-17 12:34] LABS: BASO # 0.1 x10^3/uL (0.0-0.2); BASO % 1 % (0-3); EOS # 1.8 x10^3/uL (0.0-0.7); EOS % 17 % (0-3); HEMATOCRIT 42.3 % (36.0-47.0); HEMOGLOBIN 14.4 g/dL (12.0-15.5); LYMPH # 2.4 x10^3/uL (1.0-4.8); LYMPH % 23 % (24-48); MEAN CORPUSCULAR HEMOGLOBIN 31 pg (25-35); MEAN CORPUSCULAR HGB CONC 34 g/dL (31-37); MEAN CORPUSCULAR VOLUME 90 fL (79-100); MONO # 0.5 x10^3/uL (0.0-1.1); MONO % 5 % (0-9); NEUT # 5.5 x10^3uL (1.8-7.7); NEUT % 53 % (31-73); PLATELET COUNT 331 x10^3/uL (140-400); RED BLOOD COUNT 4.69 x10^6/uL (3.50-5.40); RED CELL DISTRIBUTION WIDTH 13.6 % (11.5-14.5); WHITE BLOOD COUNT 10.4 x10^3/uL (4.0-11.0)
[2017-11-17 12:40] LABS: ALBUMIN 3.5 g/dL (3.4-5.0); CALCIUM 9.2 mg/dL (8.5-10.1); CREATININE 0.7 mg/dL (0.6-1.0); GFR 85.4; POTASSIUM 3.9 mmol/L (3.5-5.1); TOTAL BILIRUBIN 0.4 mg/dL (0.2-1.0); TOTAL PROTEIN 7.1 g/dL (6.4-8.2)
[2017-11-18 14:36] LABS: THYROID STIM HORMONE (TSH) 1.737 uIU/mL (0.358-3.740)
== END | disposition home or self-care (01) ==
LOC: LAB 06:46
PROVIDERS: ATTEND Family Medicine
DX: I10 Essential (primary) hypertension (principal); J44.1 Chronic obstructive pulmonary disease with (acute) exacerbation; G43.909 Migraine, unspecified, not intractable, without status migrainosus; K21.9 Gastro-esophageal reflux disease without esophagitis; Z79.899 Other long term (current) drug therapy
CPT/HCPCS: 36415; 80053; 80061; 81001; 83690; 84443; 85025; 87086

== ENCOUNTER → 2017-11-26 | Day surgery (SDC) | payer OTHER ==
[~2017-11-26] MED LIST changes: +ATROPINE 0.5 MG/5 ML DISP.SYRIN. IV PRN; +IV RINGERS SOLUTION,LACTATED 1,000 ML IV SCH; +LIDOCAINE 2% PF Vial for OR 5 ML VIAL. ONE; +NALOXONE 0.4 MG/ML VIAL. IV PRN; +ONDANSETRON PF 4 MG/2 ML VIAL. IV PRN; +PROPOFOL 10,000 MCG/ML (20ML) VIAL IV ONE; +PROPOFOL 20 ML IV ONE
[2017-11-26 15:27] VITALS: BP 131/6
== END | disposition home or self-care (01) ==
LOC: SURG 13:29
PROVIDERS: ATTEND Internal Medicine Gastroenterology
DX: K31.89 Other diseases of stomach and duodenum (principal); K22.8 Other specified diseases of esophagus; I10 Essential (primary) hypertension; G43.909 Migraine, unspecified, not intractable, without status migrainosus; J44.1 Chronic obstructive pulmonary disease with (acute) exacerbation; K21.9 Gastro-esophageal reflux disease without esophagitis; F41.0 Panic disorder [episodic paroxysmal anxiety]; F32.9 Major depressive disorder, single episode, unspecified; Z98.890 Other specified postprocedural states; Z90.49 Acquired absence of other specified parts of digestive tract; Z90.710 Acquired absence of both cervix and uterus; E66.9 Obesity, unspecified; Z88.0 Allergy status to penicillin; Z88.1 Allergy status to other antibiotic agents; Z88.5 Allergy status to narcotic agent; Z91.040 Latex allergy status; Z91.013 Allergy to seafood; Z88.8 Allergy status to other drugs, medicaments and biological substances; M19.90 Unspecified osteoarthritis, unspecified site; Z72.89 Other problems related to lifestyle; Z79.899 Other long term (current) drug therapy
CPT/HCPCS: 43239; J2704; J7120; 45380; J2001

== ENCOUNTER → 2018-01-28 | Outpatient (CLI) | payer OTHER ==
[2017-11-26 15:27] VITALS: BP 131/6
[~2018-01-28] MED LIST changes: -ATROPINE 0.5 MG/5 ML DISP.SYRIN. IV PRN; -IV RINGERS SOLUTION,LACTATED 1,000 ML IV SCH; -LIDOCAINE 2% PF Vial for OR 5 ML VIAL. ONE; -NALOXONE 0.4 MG/ML VIAL. IV PRN; -ONDANSETRON PF 4 MG/2 ML VIAL. IV PRN; -PROPOFOL 10,000 MCG/ML (20ML) VIAL IV ONE; -PROPOFOL 20 ML IV ONE
--- NOTE | 2018-01-28 17:45 | RAD ---
Examination: KNEE LEFT 3V History: Pain Comparison/Correlation: None Findings: Total 3 images of the left knee were obtained. Deformity of the medial tibial plateau contour is evident. Subchondral sclerosis involves the medial compartment. Spurring involves the lateral femoral condyle. Spurring of the patella noted. No acute fracture or bone destruction. Small knee joint effusion suggested. Mild medial compartment narrowing is present. Impression: Advanced degenerative change of the medial compartment. Electronically signed by: Jay Garcia MD (01/28/2018 5:42 PM) [facility]
== END | disposition home or self-care (01) ==
LOC: DXRAD 12:55
PROVIDERS: ATTEND Nurse Practitioner Family
DX: M17.12 Unilateral primary osteoarthritis, left knee (principal); Z87.891 Personal history of nicotine dependence
CPT/HCPCS: 73562

== ENCOUNTER → 2018-02-12 | Outpatient (CLI) | payer OTHER ==
[2017-11-26 15:27] VITALS: BP 131/6
[2018-02-12 14:35] LABS: BASO # 0.1 x10^3/uL (0.0-0.2); BASO % 1 % (0-3); EOS # 0.3 x10^3/uL (0.0-0.7); EOS % 4 % (0-3); HEMATOCRIT 39.6 % (36.0-47.0); HEMOGLOBIN 13.5 g/dL (12.0-15.5); LYMPH # 2.2 x10^3/uL (1.0-4.8); LYMPH % 26 % (24-48); MEAN CORPUSCULAR HEMOGLOBIN 30 pg (25-35); MEAN CORPUSCULAR HGB CONC 34 g/dL (31-37); MEAN CORPUSCULAR VOLUME 89 fL (79-100); MONO # 0.5 x10^3/uL (0.0-1.1); MONO % 6 % (0-9); NEUT # 5.4 x10^3uL (1.8-7.7); NEUT % 64 % (31-73); PLATELET COUNT 327 x10^3/uL (140-400); RED BLOOD COUNT 4.46 x10^6/uL (3.50-5.40); RED CELL DISTRIBUTION WIDTH 13.4 % (11.5-14.5); WHITE BLOOD COUNT 8.5 x10^3/uL (4.0-11.0)
[2018-02-12 14:44] LABS: ALBUMIN 3.6 g/dL (3.4-5.0)
[2018-02-12 14:45] LABS: ALBUMIN/GLOBULIN RATIO 1.1 (1.0-1.7); CALCIUM 8.7 mg/dL (8.5-10.1); CREATININE 0.7 mg/dL (0.6-1.0); GFR 85.4; POTASSIUM 4.4 mmol/L (3.5-5.1); TOTAL BILIRUBIN 0.5 mg/dL (0.2-1.0)
== END | disposition home or self-care (01) ==
LOC: LAB 14:00
PROVIDERS: ATTEND Physician Assistant
DX: A08.8 Other specified intestinal infections (principal); R11.0 Nausea
CPT/HCPCS: 36415; 80053; 83690; 85025

== ENCOUNTER → 2018-06-03 | Outpatient (CLI) | payer OTHER ==
[2017-11-26 15:27] VITALS: BP 131/6
[~2018-06-03] MED LIST changes: +ALBU2.5V8 IH; +ALBU2.5V8 INH; -ALBU8.5H8 IH; -ALBU8.5H8 INH; +HYDR-3165 PO; -HYDR-971 PO
[2018-06-03 11:02] LABS: BASO # 0.1 x10^3/uL (0.0-0.2); BASO % 1 % (0-3); EOS # 0.6 x10^3/uL (0.0-0.7); EOS % 6 % (0-3); HEMATOCRIT 42.9 % (36.0-47.0); HEMOGLOBIN 14.5 g/dL (12.0-15.5); LYMPH # 2.2 x10^3/uL (1.0-4.8); LYMPH % 24 % (24-48); MEAN CORPUSCULAR HEMOGLOBIN 30 pg (25-35); MEAN CORPUSCULAR HGB CONC 34 g/dL (31-37); MEAN CORPUSCULAR VOLUME 89 fL (79-100); MONO # 0.6 x10^3/uL (0.0-1.1); MONO % 6 % (0-9); NEUT # 5.8 x10^3uL (1.8-7.7); NEUT % 63 % (31-73); PLATELET COUNT 338 x10^3/uL (140-400); RED BLOOD COUNT 4.83 x10^6/uL (3.50-5.40); RED CELL DISTRIBUTION WIDTH 13.4 % (11.5-14.5); WHITE BLOOD COUNT 9.3 x10^3/uL (4.0-11.0)
[2018-06-03 11:22] LABS: ALBUMIN 3.7 g/dL (3.4-5.0); CREATININE 0.8 mg/dL (0.6-1.0); GFR 73.2; POTASSIUM 4.3 mmol/L (3.5-5.1); TOTAL BILIRUBIN 0.5 mg/dL (0.2-1.0); TOTAL PROTEIN 7.4 g/dL (6.4-8.2)
[2018-06-03 17:55] LABS: FREE T4 1.22 ng/dL (0.76-1.46)
[2018-06-03 17:56] LABS: THYROID STIM HORMONE (TSH) 2.542 uIU/mL (0.358-3.740)
[2018-06-03 18:08] LABS: T3 TOTAL 131 ng/dL (71-180); THYROPEROXIDASE ANTIBODY 8 IU/mL (0-34)
== END | disposition home or self-care (01) ==
LOC: LAB 10:40
PROVIDERS: ATTEND Nurse Practitioner Family
DX: R63.5 Abnormal weight gain (principal); R53.83 Other fatigue
CPT/HCPCS: 36415; 80053; 84439; 84443; 84480; 84481; 85025; 86376

== ENCOUNTER 2018-06-27 14:16 | Emergency (ER) | payer OTHER ==
[~2018-06-27] VITALS: Ht 162.6 cm; Wt 124.5 kg
[2018-06-27 14:36] VITALS: BP 136/90
--- NOTE | 2018-06-27 14:41 | PHYS DOC ---
Past History Past Medical History: Anxiety, Arthritis, Asthma, UTI, Other Past Surgical History: Cholecystectomy, Hysterectomy, Oophorectomy, Other Alcohol Use: Occasionally Drug Use: None Adult General Chief Complaint Chief Complaint: SHORTNESS OF BREATH [facility] HPI 63-year-old female presents with shortness of breath and right-sided chest wall pain. The patient states it started on after she had an asthma attack that was result of a reaction to perfume. She was able to get her cough and breathing under control with her albuterol. Since that time she's had this pain in the right chest wall. It hurts worse with deep breathing. She denies diaphoresis. Patient has a history of asthma and pneumothorax in the past. She denies any trauma or falls. She has not had a fever or chills. Review of Systems Review of Systems Constitutional: Denies fever or chills [] Eyes: Denies change in visual acuity, redness, or eye pain [] HENT: Denies nasal congestion or sore throat [] Respiratory: Cough with shortness of breath [] Cardiovascular: No additional information not addressed in HPI [] GI: Denies abdominal pain, nausea, vomiting, bloody stools or diarrhea [] : Denies dysuria or hematuria [] Musculoskeletal: Right-sided chest wall pain[] Integument: Denies rash or skin lesions [] Neurologic: Denies headache, focal weakness or sensory changes [] Endocrine: Denies polyuria or polydipsia [] All other systems were reviewed and found to be within normal limits, except as documented in this note. Allergies Allergies Allergies Coded Allergies Type Severity Reaction Last Updated Verified fish derived Allergy Intermediate 11/07/14 Yes nabumetone Allergy Intermediate 01/08/15 Yes tizanidine Allergy Intermediate 01/08/15 Yes iodine Allergy Unknown 11/25/17 Yes Penicillins Adverse Reaction Intermediate 11/07/14 Yes Sulfa (Sulfonamide Antibiotics) Adverse Reaction Intermediate 11/07/14 Yes aspirin Adverse Reaction Intermediate 11/07/14 Yes latex Adverse Reaction Intermediate 11/07/14 Yes Physical Exam Physical Exam Constitutional: Well developed, obese, well nourished, no acute distress, non- toxic appearance. [] HENT: Normocephalic, atraumatic, bilateral external ears normal, oropharynx moist, no oral exudates, nose normal. [] Eyes: PERRLA, EOMI, conjunctiva normal, no discharge. [] Neck: Normal range of motion, no tenderness, supple, no stridor. [] Cardiovascular:Heart rate regular rhythm, no murmur [] Lungs & Thorax: Bilateral breath sounds clear to auscultation. Tenderness with palpation of the right lateral chest wall.[] Abdomen: Bowel sounds normal, soft, no tenderness, no masses, no pulsatile masses. [] Skin: Warm, dry, no erythema, no rash. [] Back: No tenderness, no CVA tenderness. [] Extremities: No tenderness, no cyanosis, no clubbing, ROM intact, no edema. [] Neurologic: Alert and oriented X 3, normal motor function, normal sensory function, no focal deficits noted. [] Psychologic: Affect normal, judgement normal, mood normal. [] EKG EKG Sinus rhythm, rate 78, leftward axis, no ST elevations or depressions.[] Radiology/Procedures Radiology/Procedures [] Impressions: CHEST PA LATERAL History: SHORT OF AIR, HX OF BRONCHITIS Comparison: August 14, 2017 FINDINGS: Heart size not enlarged. No consolidating infiltrate, pneumothorax or pleural effusion. Thoracic scoliosis redemonstrated. Degenerative changes of the spine. IMPRESSION: No consolidating infiltrate. Electronically signed by: Juanito Ojeda MD (06/27/2018 2:51 PM) [facility] DICTATED AND SIGNED BY: JUANITO OJEDA MD DATE: 06/27/18 145 CC: KEVIN WILKINSON DO; CARMINA BARRON MD Course & Med Decision Making Course & Med Decision Making Pertinent Labs and Imaging studies reviewed. (See chart for details) His EKG is unremarkable. Her labs are unremarkable. Her troponin is negative. Her chest x-ray is negative for acute findings. Believe the patient's pain is musculoskeletal. I did a visual exam of the skin I do not see any sign of rash. The patient continues topical cream daily analgesics at home. She is reassured by her negative results. She is stable for discharge at this time. [] Dragon Disclaimer Dragon Disclaimer This electronic medical record was generated, in whole or in part, using a voice recognition dictation system. Departure Departure: Impression: Primary Impression: Anterior chest wall pain Disposition: HOME, SELF-CARE Condition: STABLE Referrals: CARMINA BARRON MD (PCP) Patient Instructions: Chest Wall Pain, [id number] KEVIN WILKINSON DO Jun 27, 2018 14:41
--- NOTE | 2018-06-27 14:46 | EKG ---
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
--- NOTE | 2018-06-27 14:54 | RAD ---
CHEST PA LATERAL History: SHORT OF AIR, HX OF BRONCHITIS Comparison: August 14, 2017 FINDINGS: Heart size not enlarged. No consolidating infiltrate, pneumothorax or pleural effusion. Thoracic scoliosis redemonstrated. Degenerative changes of the spine. IMPRESSION: No consolidating infiltrate. Electronically signed by: Harinder Ojeda MD (06/27/2018 2:51 PM) [facility]
[2018-06-27 15:16] LABS: BASO # 0.1 x10^3/uL (0.0-0.2); BASO % 1 % (0-3); EOS # 0.5 x10^3/uL (0.0-0.7); EOS % 6 % (0-3); HEMATOCRIT 41.6 % (36.0-47.0); LYMPH # 1.5 x10^3/uL (1.0-4.8); LYMPH % 19 % (24-48); MEAN CORPUSCULAR HEMOGLOBIN 30 pg (25-35); MEAN CORPUSCULAR HGB CONC 34 g/dL (31-37); MEAN CORPUSCULAR VOLUME 89 fL (79-100); MONO # 0.5 x10^3/uL (0.0-1.1); MONO % 6 % (0-9); NEUT # 5.4 x10^3uL (1.8-7.7); NEUT % 68 % (31-73); PLATELET COUNT 341 x10^3/uL (140-400); RED BLOOD COUNT 4.66 x10^6/uL (3.50-5.40); RED CELL DISTRIBUTION WIDTH 13.9 % (11.5-14.5); WHITE BLOOD COUNT 7.9 x10^3/uL (4.0-11.0)
[2018-06-27 15:35] LABS: ALBUMIN 3.7 g/dL (3.4-5.0); CALCIUM 8.7 mg/dL (8.5-10.1); CREATININE 0.7 mg/dL (0.6-1.0); GFR 85.1; POTASSIUM 4.2 mmol/L (3.5-5.1); TOTAL BILIRUBIN 0.4 mg/dL (0.2-1.0); TOTAL PROTEIN 7.3 g/dL (6.4-8.2)
[2018-07-04] MEDS ORDERED: HYDR-2765 PO (13:02)
[2018-07-04] MEDS ORDERED: LIDO1ADH10 TP (13:02)
[2018-07-04] MEDS ORDERED: FENT1PAT17 TP (13:02)
== END 2018-06-27 16:16 | disposition home or self-care (01) ==
LOC: EDBD → ER 14:16
DX: R07.89 Other chest pain (principal); F41.9 Anxiety disorder, unspecified; M19.90 Unspecified osteoarthritis, unspecified site; J45.909 Unspecified asthma, uncomplicated; Z87.440 Personal history of urinary (tract) infections; Z88.2 Allergy status to sulfonamides; Z88.8 Allergy status to other drugs, medicaments and biological substances; Z88.6 Allergy status to analgesic agent; Z91.040 Latex allergy status; Z91.013 Allergy to seafood
CPT/HCPCS: 36415; 71046; 80053; 83880; 84484; 85025; 93005; 99284

== ENCOUNTER → 2018-06-28 | Outpatient (CLI) | payer OTHER ==
[2018-06-27 14:36] VITALS: BP 136/90
[~2018-06-28] MED LIST changes: +BUDE10.2 IN; +FENT1PAT17 TP; +FLUT9.9S NS; +HYDR-2765 PO; +LIDO1ADH10 TP; +MOME45CR2 TOP; +MULT1TAB52 PO; +ORPH-16 PO
--- NOTE | 2018-06-28 14:00 | RAD ---
COMPLETE ABDOMINAL ULTRASOUND Clinical History: RUQ PAIN Comparison: CT chest without contrast, August 14, 2017. Technique: Sonographic examination of the abdomen was performed and multiple grayscale and color Doppler static images were obtained. Findings: Most of the liver is visualized and is homogeneous. The liver measures 17.7 cm. Ultrasound is not sensitive for detecting solid liver lesions. Portal flow is hepatopetal. The common bile duct is normal in caliber, measuring 3 mm in diameter. The gallbladder is surgically absent. Pancreas is not well-visualized due to overlying bowel gas. The right kidney is normal in echotexture and measures 10.7 cm. The left kidney is normal in echotexture and measures 11.2 cm. Corticomedullary differentiation is preserved. There is no hydronephrosis. The spleen is not enlarged, measuring 11.2 cm. Visualized portions of the abdominal aorta and IVC are normal. IMPRESSION: There is no acute abdominal abnormality identified sonographically. Electronically signed by: Valerio Mims MD (06/28/2018 1:57 PM) [id number]
== END | disposition home or self-care (01) ==
LOC: EDBD → US 12:52
PROVIDERS: ATTEND Family Medicine
DX: R10.11 Right upper quadrant pain (principal)
CPT/HCPCS: 76700

== ENCOUNTER 2018-06-29 18:34 | Emergency (ER) | payer OTHER ==
[~2018-06-29] VITALS: Ht 162.6 cm; Wt 134.7 kg
[~2018-06-29 18:34] MED LIST changes: -BUDE10.2 IN; -FENT1PAT17 TP; -FLUT9.9S NS; -HYDR-2765 PO; -LIDO1ADH10 TP; -MOME45CR2 TOP; -MULT1TAB52 PO; -ORPH-16 PO
[2018-06-29 18:35] VITALS: BP 165/86
--- NOTE | 2018-06-29 19:09 | PHYS DOC ---
Past History Past Medical History: Arthritis, Asthma, Bronchitis, Sinusitis, Other Past Surgical History: No Surgical History Alcohol Use: Rarely Drug Use: None Adult General Chief Complaint Chief Complaint: SHORTNESS OF BREATH HPI HPI Patient is a 63-year-old female presents with shortness of breath and right- sided upper abdominal and back pain. The patient was just recently seen in ED on 06/27 for similar complaints. Patient reports pain all started last week after she had an "asthma attack" at work that was result of a reaction to perfume. She was able to get her cough and breathing under control with her albuterol. Her cardiac work up in the ED then was negative and there were no acute findings on imaging. She followed up with her primary care doctor who did an ultrasound yesterday that did not show abnormalities of her abdomen. While at work today she got up and felt a pop in her right upper back which further exacerbated her abdominal pain. She describes the pain as sharp and stabbing and radiates across her abdomen. She has only taken ibuprofen with no relief. The pain causes her to be short of breath but she denies chest pressure, dizziness, diarrhea, dysuria, hematuria. She has a history of "a displaced rib" and denies any fractures or previous and recent trauma to area. Patient denies history of blood clot or PE. Review of Systems Review of Systems Constitutional: Denies fever or chills [] Eyes: Denies change in visual acuity, redness, or eye pain [] HENT: Denies nasal congestion or sore throat [] Respiratory: Reports cough and shortness of breath [] Cardiovascular: Denies chest pain or palpitation GI: Reports right upper abdominal pain, Denies vomiting, diarrhea [] : Denies dysuria or hematuria [] Musculoskeletal: reports right upper back pain [] Integument: Denies rash or skin lesions [] Neurologic: Denies headache, focal weakness or sensory changes [] Complete systems were reviewed and found to be within normal limits, except as documented in this note. Allergies Allergies Allergies Coded Allergies Type Severity Reaction Last Updated Verified fish derived Allergy Intermediate 11/07/14 Yes nabumetone Allergy Intermediate 01/08/15 Yes tizanidine Allergy Intermediate 01/08/15 Yes iodine Allergy Unknown 11/25/17 Yes Penicillins Adverse Reaction Intermediate 11/07/14 Yes Sulfa (Sulfonamide Antibiotics) Adverse Reaction Intermediate 11/07/14 Yes aspirin Adverse Reaction Intermediate 11/07/14 Yes latex Adverse Reaction Intermediate 11/07/14 Yes Physical Exam Physical Exam Constitutional: Well developed, well nourished, obese, appears uncomfortable [] Eyes: PERRL, EOMI, conjunctiva normal, no discharge. [] Neck: Normal range of motion, no tenderness, supple, no JVD [] Cardiovascular: Heart rate regular rhythm, no murmur [] Lungs & Thorax: Bilateral breath sounds clear to auscultation [] Abdomen: soft, tenderness to right upper quadrant, [] Skin: Warm, dry, no erythema, no rash. [] Back: upper-mid thoracic paraspinal tenderness, no midline tenderness, right CVA tenderness Extremities: No tenderness,moves all, edema bilateral lower extremities [] Neurologic: Alert and oriented X 3, normal motor function, normal sensory function, no focal deficits noted. [] Psychologic: Anxious, judgement normal, mood normal. [] EKG EKG @19:17 NSR with HR of 78 bpm QRS: 96ms QT/QTc: 360/414 ms Radiology/Procedures Radiology/Procedures PROCEDURE: CT CHEST ABDOMEN PELVIS WO PQRS Compliance statement: One or more of the following individualized dose reduction techniques were utilized for this examination: 1. Automated exposure control. 2. Adjustment of the mA and/or kV according to patient size. 3. Use of iterative reconstruction technique. Indication:Upper abdomen and flank pain, eval for pneumonia vs ureteral calculi. Hx: Hysterectomy, cholecystectomy TECHNIQUE: CT chest, abdomen and pelviswithout IV contrast with multiplanar reformats. COMPARISON: CT chest from 08/14/2017 FINDINGS: Limited exam due to lack of IV contrast. Heart is normal in size. No pericardial or pleural effusion. No enlarged axillary or mediastinal adenopathy. Evaluation of hilar lymphadenopathy is limited due to lack of IV contrast. Mild subsegmental atelectasis along the right major fissure and in the lingula. Stable 4 mm nodule in the right lower lobe (series 2 image 56). Stable 4 mm nodule in the left upper lobe (series 2 image 48). Stable subpleural nodule in the left lower lobe measuring 5 mm (series 2 image 64). Old right posterolateral sixth rib fracture. Mild dextroscoliosis of the upper thoracic spine. No suspicious bony lesion. Noncontrast appearance of the liver, spleen, pancreas, adrenals within normal limits. Status post cholecystectomy. 6 mm calcific density seen along the course of the distal left ureter just proximal to the left UVJ. Without hydronephrosis. No enlarged retroperitoneal or pelvic adenopathy. No free pelvic fluid or ascites. No bowel obstruction. Urinary bladder demonstrates no radiopaque stones. Status post hysterectomy. No pneumoperitoneum. No suspicious bony lesion. IMPRESSION: Limited evaluation of solid abdominal and pelvic organs due to lack of IV contrast. 1. Bilateral stable lung nodules. Follow-up CT chest in 12 months recommended. 2. Likely Nonobstructing distal left ureteral stone just proximal to the UVJ (6 mm). Electronically signed by: Rah Jhaveri DO (06/29/2018 8:28 PM) [facility] DICTATED AND SIGNED BY: RAH JHAVERI DO DATE: 06/29/182018 CC: CARMINA BARRON MD; JUANITO CORRAL DO ~ Course & Med Decision Making Course & Med Decision Making Pertinent Labs and Imaging studies reviewed. (See chart for details) Patient presents with upper abdominal pain and back pain. Hx of recent evaluation for same in ED and then followup US with PCP obtained. [place] Initative review preformed for recent ED visit and outpatient US. NO acute process appreciated. Decision to obtain CT Imaging. CT noted stable pulmonary nodules and a possible left kidney stone just proximal to the UVJ. No signs of hydronephrosis and no blood on UA. Patient also denies pain to left flank or groin. Doubt true ureteral calculi. EKG stable. Labs obtained and posted to chart. Troponin negative. D-dimer negative. Patient did not get aspirin due to her allergy. Her pain is likely musculoskeletal and from her story it sounds like she strained her back getting out of her chair earlier at work. Symptomatic treatment provided with interval improvement of symptoms. Patient stable for discharge home with outpatient follow-up with PCP. Discussed findings and plan with patient, who acknowledges understanding and agreement. Dragon Disclaimer Dragon Disclaimer This electronic medical record was generated, in whole or in part, using a voice recognition dictation system. Departure Departure: Impression: Primary Impression: Back pain Additional Impression: Abdominal pain Disposition: 01 HOME, SELF-CARE Condition: STABLE Referrals: CARMINA BARRON MD (PCP) Patient Instructions: Abdominal Pain (Nonspecific), Back Pain, Adult, Easy-to- Read Scripts Orphenadrine Citrate (ORPHENADRINE CITRATE) 100 Mg Tablet.er 1 TAB PO BID PRN for MUSCLE PAIN, #14 TAB 0 Refills Prov: JUANITO CORRAL DO 06/29/18 Problem Qualifiers Primary Impression: Back pain Back pain location: thoracic back pain Chronicity: acute Back pain laterality: right Qualified Codes: M54.6 - Pain in thoracic spine Additional Impression: Abdominal pain Abdominal location: right upper quadrant Qualified Codes: R10.11 - Right upper quadrant pain JUANITO CORRAL DO Jun 29, 2018 19:09
[2018-06-29] MEDS ORDERED: IV NORMAL SALINE 1,000ML 1,000 ML IV ONE (19:15)
[2018-06-29] MEDS ORDERED: KETOROLAC 15 MG/ML VIAL. IV ONE (19:15)
[2018-06-29] MEDS ORDERED: ORPHENADRINE CITRATE 60 MG/2 ML VIAL. IV ONE (19:30)
[2018-06-29] MEDS ORDERED: ONDANSETRON PF 4 MG/2 ML VIAL. IV ONE (19:30)
[2018-06-29 19:46] LABS: BASO # 0.1 x10^3/uL (0.0-0.2); BASO % 1 % (0-3); EOS # 0.4 x10^3/uL (0.0-0.7); EOS % 5 % (0-3); HEMATOCRIT 42.6 % (36.0-47.0); HEMOGLOBIN 14.4 g/dL (12.0-15.5); LYMPH % 22 % (24-48); MEAN CORPUSCULAR HEMOGLOBIN 30 pg (25-35); MEAN CORPUSCULAR HGB CONC 34 g/dL (31-37); MEAN CORPUSCULAR VOLUME 89 fL (79-100); MONO # 0.5 x10^3/uL (0.0-1.1); MONO % 5 % (0-9); NEUT # 6.1 x10^3uL (1.8-7.7); NEUT % 67 % (31-73); PLATELET COUNT 367 x10^3/uL (140-400); RED BLOOD COUNT 4.78 x10^6/uL (3.50-5.40); RED CELL DISTRIBUTION WIDTH 13.9 % (11.5-14.5); WHITE BLOOD COUNT 9.1 x10^3/uL (4.0-11.0)
[2018-06-29 20:08] LABS: ALBUMIN 3.7 g/dL (3.4-5.0); CREATININE 0.7 mg/dL (0.6-1.0); GFR 85.1; POTASSIUM 4.4 mmol/L (3.5-5.1); TOTAL BILIRUBIN 0.6 mg/dL (0.2-1.0); TOTAL PROTEIN 7.5 g/dL (6.4-8.2)
--- NOTE | 2018-06-29 20:31 | RAD ---
PQRS Compliance statement: One or more of the following individualized dose reduction techniques were utilized for this examination: 1. Automated exposure control. 2. Adjustment of the mA and/or kV according to patient size. 3. Use of iterative reconstruction technique. Indication:Upper abdomen and flank pain, eval for pneumonia vs ureteral calculi. Hx: Hysterectomy, cholecystectomy TECHNIQUE: CT chest, abdomen and pelviswithout IV contrast with multiplanar reformats. COMPARISON: CT chest from 08/14/2017 FINDINGS: Limited exam due to lack of IV contrast. Heart is normal in size. No pericardial or pleural effusion. No enlarged axillary or mediastinal adenopathy. Evaluation of hilar lymphadenopathy is limited due to lack of IV contrast. Mild subsegmental atelectasis along the right major fissure and in the lingula. Stable 4 mm nodule in the right lower lobe (series 2 image 56). Stable 4 mm nodule in the left upper lobe (series 2 image 48). Stable subpleural nodule in the left lower lobe measuring 5 mm (series 2 image 64). Old right posterolateral sixth rib fracture. Mild dextroscoliosis of the upper thoracic spine. No suspicious bony lesion. Noncontrast appearance of the liver, spleen, pancreas, adrenals within normal limits. Status post cholecystectomy. 6 mm calcific density seen along the course of the distal left ureter just proximal to the left UVJ. Without hydronephrosis. No enlarged retroperitoneal or pelvic adenopathy. No free pelvic fluid or ascites. No bowel obstruction. Urinary bladder demonstrates no radiopaque stones. Status post hysterectomy. No pneumoperitoneum. No suspicious bony lesion. IMPRESSION: Limited evaluation of solid abdominal and pelvic organs due to lack of IV contrast. 1. Bilateral stable lung nodules. Follow-up CT chest in 12 months recommended. 2. Likely Nonobstructing distal left ureteral stone just proximal to the UVJ (6 mm). Electronically signed by: Rah Da Silva DO (06/29/2018 8:28 PM) [facility]
[2018-06-29 21:29] LABS: BILIRUBIN,URINE NEG (NEG); CLARITY,URINE HAZY; COLOR,URINE AMBER; GLUCOSE,URINE NEG (NEG); NITRITE,URINE NEG (NEG); UROBILINOGEN,URINE 0.2 mg/dL (0.2 mg/dL)
[2018-06-29 21:30] LABS: BACTERIA,URINE FEW /HPF (0-FEW); RBC,URINE 0 /HPF (0-2); SQUAMOUS EPITHELIAL CELL,UR FEW /LPF
[2018-06-29] MEDS ORDERED: ORPH-16 PO (21:48)
--- NOTE | 2018-07-02 21:44 | EKG ---
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
[2018-07-04] MEDS ORDERED: FENT1PAT17 TP (13:02)
[2018-07-04] MEDS ORDERED: HYDR-2765 PO (13:02)
[2018-07-04] MEDS ORDERED: LIDO1ADH10 TP (13:02)
== END 2018-06-29 22:11 | disposition home or self-care (01) ==
LOC: EDBD → ER 18:34
DX: M54.6 Pain in thoracic spine (principal); R10.11 Right upper quadrant pain; R06.02 Shortness of breath; R91.8 Other nonspecific abnormal finding of lung field; M19.90 Unspecified osteoarthritis, unspecified site; J45.909 Unspecified asthma, uncomplicated; Z88.2 Allergy status to sulfonamides; Z88.8 Allergy status to other drugs, medicaments and biological substances; Z88.6 Allergy status to analgesic agent; Z91.040 Latex allergy status; Z88.0 Allergy status to penicillin; Z91.013 Allergy to seafood
CPT/HCPCS: 36415; 71250; 74176; 80053; 81001; 83690; 83735; 83880; 84484; 85025; 85379; 87086; 93005; 96374; 96375; 99284; J1885; J2360; J2405; J3010; J7030

== ENCOUNTER 2018-07-01 10:35 | Inpatient (IN) | payer OTHER ==
[~2018-07-01] VITALS: Ht 162.6 cm; Wt 138.3 kg
[~2018-07-01 10:35] MED LIST changes: +ORPH-16 PO
[2018-07-01 11:34] VITALS: BP 157/89
[2018-07-01] MEDS ORDERED: IOHEXOL 240 MG/ML 50ML VIAL. ONE (11:40)
[2018-07-01 11:55] LABS: BASO # 0.1 x10^3/uL (0.0-0.2); BASO % 1 % (0-3); EOS # 0.3 x10^3/uL (0.0-0.7); EOS % 3 % (0-3); HEMATOCRIT 41.7 % (36.0-47.0); LYMPH # 1.6 x10^3/uL (1.0-4.8); LYMPH % 18 % (24-48); MEAN CORPUSCULAR HEMOGLOBIN 30 pg (25-35); MEAN CORPUSCULAR HGB CONC 34 g/dL (31-37); MEAN CORPUSCULAR VOLUME 90 fL (79-100); MONO # 0.6 x10^3/uL (0.0-1.1); MONO % 6 % (0-9); NEUT # 6.7 x10^3uL (1.8-7.7); NEUT % 73 % (31-73); PLATELET COUNT 351 x10^3/uL (140-400); RED BLOOD COUNT 4.62 x10^6/uL (3.50-5.40); RED CELL DISTRIBUTION WIDTH 13.8 % (11.5-14.5); WHITE BLOOD COUNT 9.3 x10^3/uL (4.0-11.0)
[2018-07-01 11:58] LABS: ALBUMIN 3.6 g/dL (3.4-5.0); ALBUMIN/GLOBULIN RATIO 0.9 (1.0-1.7); CREATININE 0.8 mg/dL (0.6-1.0); GFR 72.9; TOTAL BILIRUBIN 0.4 mg/dL (0.2-1.0); TOTAL PROTEIN 7.4 g/dL (6.4-8.2)
[2018-07-01 12:00] LABS: POTASSIUM 4.2 mmol/L (3.5-5.1)
[2018-07-01] MEDS: IPRATRPIUM/ALBUTEROL 0.5/2.5MG 3 ML NEBU. NEB SCH ×3 (12:00→20:47)
[2018-07-01] MEDS: IV NORMAL SALINE 1,000ML 1,000 ML IV SCH ×2 (12:58→18:22)
[2018-07-01] MEDS ORDERED: MOME45CR2 TOP (13:34)
[2018-07-01] MEDS ORDERED: BUDE10.2 IN (13:34)
[2018-07-01] MEDS ORDERED: FLUT9.9S NS (13:34)
[2018-07-01] MEDS ORDERED: MULT1TAB52 PO (13:34)
--- NOTE | 2018-07-01 14:03 | RAD ---
Examination: CT of the abdomen pelvis with oral contrast HISTORY: History of right-sided abdominal pain, right upper quadrant pain TECHNIQUE: Axial CT images of the abdomen and pelvis were performed with oral contrast. Coronal and sagittal reformats are performed Exposure: One or more of the following individualized dose reduction techniques were utilized for this examination: 1. Automated exposure control 2. Adjustment of the mA and/or kV according to patient size 3. Use of iterative reconstruction technique FINDINGS: Small right pleural effusion. Linear airspace opacity identified in the right midlung zone likely atelectasis or infiltrate. Mild bibasilar lung airspace opacities likely atelectasis or infiltrates. Cholecystectomy changes identified. The stomach is minimally distended. The visualized pancreas grossly appears unremarkable. No evidence of free air identified in the abdomen. The visualized liver, spleen, adrenals grossly appears unremarkable.The small bowel is nondilated. Contrast is identified in the colon. Urinary bladder is mildly distended. No evidence of intrarenal collecting system calculi or hydronephrosis identified. Mild aortic atherosclerosis. Moderate degenerative changes lumbar spine. IMPRESSION: 1. No acute intra-abdominal findings 2. Cholecystectomy changes. 3. Small right pleural effusion. Electronically signed by: Brian Del Castillo MD (07/01/2018 2:01 PM) [id number]
[2018-07-01 14:23] LABS: BACTERIA,URINE 0 /HPF (0-FEW); BILIRUBIN,URINE NEG (NEG); CLARITY,URINE HAZY; COLOR,URINE YELLOW; GLUCOSE,URINE NEG (NEG); NITRITE,URINE NEG (NEG); RBC,URINE 0 /HPF (0-2); SQUAMOUS EPITHELIAL CELL,UR OCC /LPF; UROBILINOGEN,URINE 0.2 mg/dL (0.2 mg/dL); WBC,URINE 0 /HPF (0-4)
[2018-07-01 15:24] VITALS: BP 128/77
[2018-07-01 16:29] LABS: AMYLASE 25 U/L (25-115); LIPASE 79 U/L (73-393)
[2018-07-01] MEDS ORDERED: HYDROmorphone PF 2 MG/ML VIAL IV PRN (17:00)
[2018-07-01] MEDS ORDERED: diphenhydrAMINE 50 MG/ML VIAL IVP PRN (17:45)
[2018-07-01] MEDS ORDERED: RIVAROXABAN 15 MG TABLET. PO SCH (18:00)
[2018-07-01] MEDS ORDERED: NON FORMULARY ITEM (Albuterol Sulfate (Albuterol Sulfate Neb Soln) 1 VIAL) NEB PRN (18:15)
[2018-07-01] MEDS ORDERED: HEPARIN for SUB-Q USE 5,000 UNIT/ML VIAL. SQ ONE (18:30)
[2018-07-01 19:25] VITALS: BP 127/82
[2018-07-01] MEDS: BUDESONIDE 0.5 MG/2 ML NEBU NEB SCH (20:47)
[2018-07-01] MEDS: ALPRAZolam 0.5 MG TABLET PO SCH (20:49)
[2018-07-01] MEDS ORDERED: NON FORMULARY ITEM (Budesonide/Formoterol Fumarate (Symbicort 160-4.5 Mcg Inhaler) 2 PUFF) IN SCH (21:00)
[2018-07-01] MEDS ORDERED: NON FORMULARY ITEM (Ipratropium/Albuterol Sulfate (Combivent Respimat Inhal) 4 GM) IH SCH (21:00)
[2018-07-01 22:59] VITALS: BP 112/74
[2018-07-02] MEDS: IV NORMAL SALINE 1,000ML 1,000 ML IV SCH ×4 (02:46→21:05)
[2018-07-02] MEDS: IPRATRPIUM/ALBUTEROL 0.5/2.5MG 3 ML NEBU. NEB SCH ×4 (04:32→20:38)
[2018-07-02 06:05] VITALS: BP 122/83
[2018-07-02 06:11] LABS: BASO # 0.1 x10^3/uL (0.0-0.2); BASO % 1 % (0-3); EOS # 0.6 x10^3/uL (0.0-0.7); EOS % 8 % (0-3); HEMATOCRIT 37.1 % (36.0-47.0); HEMOGLOBIN 12.4 g/dL (12.0-15.5); LYMPH # 1.7 x10^3/uL (1.0-4.8); LYMPH % 23 % (24-48); MEAN CORPUSCULAR HEMOGLOBIN 30 pg (25-35); MEAN CORPUSCULAR HGB CONC 33 g/dL (31-37); MEAN CORPUSCULAR VOLUME 90 fL (79-100); MONO # 0.5 x10^3/uL (0.0-1.1); MONO % 7 % (0-9); NEUT # 4.7 x10^3uL (1.8-7.7); NEUT % 62 % (31-73); PLATELET COUNT 298 x10^3/uL (140-400); RED BLOOD COUNT 4.11 x10^6/uL (3.50-5.40); RED CELL DISTRIBUTION WIDTH 13.4 % (11.5-14.5); WHITE BLOOD COUNT 7.6 x10^3/uL (4.0-11.0)
[2018-07-02 06:36] LABS: CALCIUM 8.4 mg/dL (8.5-10.1); CREATININE 0.6 mg/dL (0.6-1.0); GFR 101.6
[2018-07-02] MEDS: ALPRAZolam 0.5 MG TABLET PO SCH ×3 (08:24→20:22)
[2018-07-02] MEDS: BUDESONIDE 0.5 MG/2 ML NEBU NEB SCH ×2 (10:26→20:38)
[2018-07-02] MEDS: ALBUTEROL SULFATE 2.5 MG/3 ML NEBU. NEB PRN (10:26)
[2018-07-02 10:35] VITALS: BP 109/63
--- NOTE | 2018-07-02 13:52 | RAD ---
V/Q LUNG SCAN CLINICAL INDICATIONS: Elevated d-dimer. Right rib and chest pain for one week. COMPARISON: Chest x-ray performed today. Lung scan dated August 14, 2017. TECHNIQUE: After inhalation of 15 mCi of Xenon 133 gas, anterior and posterior planar images of the lung sher were performed in the single breath and equilibrium and washout phases. After IV infusion of 5.5 mCi of technetium 99m MAA, multiplanar images of both lung sher were performed. FINDINGS: There is a lower lateral ventilatory defect of the right lung field. This corresponds to rib cage deformity and pleural thickening here. Corresponding perfusion defect is seen here. No other perfusion defect is evident. Mild retention of radiotracer activity is seen on the ventilation study consistent with chronic obstructive pulmonary disease. IMPRESSION: Matched ventilatory fusion defect corresponding to rib deformity and pleural thickening on chest x-ray. Therefore the overall probability for pulmonary embolism is low. Electronically signed by: Salbador Briceno MD (07/02/2018 1:50 PM) [facility]
--- NOTE | 2018-07-02 13:55 | RAD ---
CHEST PA LATERAL Clinical indications: SHORT OF BREATH, VQ SCAN COMPARISON: June 27, 2018. Findings: There is new finding of mild interstitial infiltrate within the right middle and lower lung zone. A small right-sided pleural effusion is seen which is new. No pneumothorax is evident. Left lung field is clear. The heart size, pulmonary vasculature, mediastinum and both joseph are stable. Old rib deformity and pleural thickening is seen laterally on the right side.. Scoliosis is seen. Impression: New finding of mild interstitial infiltrate within the right mid and lower lung zone. Small right-sided pleural effusion is new. Electronically signed by: Salbador Briceno MD (07/02/2018 1:52 PM) [facility]
[2018-07-02 14:24] VITALS: BP 138/79
--- NOTE | 2018-07-02 16:10 | RAD ---
EXAM: Bilateral lower extremity venous Doppler. HISTORY: Bilateral lower extremity pain/swelling. Elevated d-dimer. COMPARISON: None. FINDINGS: Grayscale and Doppler analysis of the both lower extremity deep venous systems was performed with graded compression and augmentation. The common femoral, greater saphenous, superficial femoral, popliteal and calf veins were assessed. There is no evidence of deep venous thrombosis. IMPRESSION: 1. No evidence of deep venous thrombosis. Electronically signed by: Angie Arnold MD (07/02/2018 4:07 PM) [place] [id number]
[2018-07-02] MEDS: AZITHROMYCIN 500 MG in IV NORMAL SALINE 250ML 250 ML IV SCH (17:35)
[2018-07-02 19:40] VITALS: BP 126/82
[2018-07-02] MEDS: ONDANSETRON PF 4 MG/2 ML VIAL. IV PRN (20:22)
[2018-07-02] MEDS: LACTOBACILLUS RHAMNOSUS GG 1 CAPSULE. PO SCH (20:22)
[2018-07-03] MEDS: ONDANSETRON PF 4 MG/2 ML VIAL. IV PRN (01:52)
[2018-07-03] MEDS: IPRATRPIUM/ALBUTEROL 0.5/2.5MG 3 ML NEBU. NEB SCH ×4 (05:10→21:17)
[2018-07-03] MEDS: IV NORMAL SALINE 1,000ML 1,000 ML IV SCH ×4 (05:33→23:45)
[2018-07-03 06:44] VITALS: BP 114/73
[2018-07-03] MEDS: BUDESONIDE 0.5 MG/2 ML NEBU NEB SCH ×2 (09:23→21:17)
[2018-07-03] MEDS: LACTOBACILLUS RHAMNOSUS GG 1 CAPSULE. PO SCH ×2 (09:32→21:36)
[2018-07-03] MEDS: ALPRAZolam 0.5 MG TABLET PO SCH ×3 (09:33→21:37)
[2018-07-03 11:42] VITALS: BP 131/75
--- NOTE | 2018-07-03 12:50 | RAD ---
CT of the chest without contrast: Clinical History: Right rib pain and cough. Axial helical images of the chest were obtained without contrast. There is a mild right pleural effusion. There is a subacute mildly displaced fracture of the posterior lateral right sixth rib. There is an acute fracture of the right posterior lateral seventh rib. Linear opacities lung bases are likely discoid atelectasis. The thoracic aorta has normal caliber. There is no mediastinal or hilar lymphadenopathy. Impression: 1. Subacute fracture of the right sixth rib and acute fracture of the right seventh rib. 2. Mild right pleural effusion. PQRS Compliance Statement: One or more of the following individualized dose reduction techniques were utilized for this examination: 1. Automated exposure control 2. Adjustment of the mA and/or kV according to patient size 3. Use of iterative reconstruction technique Electronically signed by: Kyle Rodriguez III, MD (07/03/2018 12:47 PM) [facility]
[2018-07-03 15:31] VITALS: BP 106/69
[2018-07-03] MEDS: ALBUTEROL SULFATE 2.5 MG/3 ML NEBU. NEB PRN (18:15)
[2018-07-03] MEDS: AZITHROMYCIN 500 MG in IV NORMAL SALINE 250ML 250 ML IV SCH (18:31)
[2018-07-03 19:38] VITALS: BP 110/71
--- NOTE | 2018-07-04 | PN ---
DATE: SUBJECTIVE: The patient still has right upper quadrant pain. The patient seems to be resting fairly comfortably. The patient had a CAT scan done today showed a subacute fracture of the right 6th rib and acute fracture of the right 7th rib with a pleural effusion (NC). The patient is still in quite a bit of pain, receiving IV pain medication. Blood pressure 106/70, respiratory rate 24, pulse 82, afebrile. The patient is alert and oriented, severe pain to that right flank area. The patient continues to be monitored carefully. We will make further evaluation on her as indicated. PHYSICAL EXAMINATION: VITAL SIGNS: Blood pressure 107/70, respiratory rate 24, pulse 82, afebrile. GENERAL: The patient is alert and oriented. LUNGS: Diminished with severe pain in the right flank area. ABDOMEN: Soft, but definite tenderness. EXTREMITIES: No clubbing, cyanosis or edema. NEUROLOGIC: The patient is alert and oriented x 3. IMPRESSION: Right rib fracture, intractable pain. PLAN: As above. CARMINA BARRON MD DR: RUDI/christiana JOB#: [id number] / [id number]
[2018-07-04] MEDS: IPRATRPIUM/ALBUTEROL 0.5/2.5MG 3 ML NEBU. NEB SCH ×2 (05:11→10:15)
[2018-07-04] MEDS: IV NORMAL SALINE 1,000ML 1,000 ML IV SCH (06:25)
[2018-07-04 06:57] VITALS: BP 123/81
[2018-07-04] MEDS: LACTOBACILLUS RHAMNOSUS GG 1 CAPSULE. PO SCH (09:00)
[2018-07-04] MEDS: ALPRAZolam 0.5 MG TABLET PO SCH (09:30)
[2018-07-04] MEDS: BUDESONIDE 0.5 MG/2 ML NEBU NEB SCH (10:15)
[2018-07-04 10:55] VITALS: BP 124/77
[2018-07-04] MEDS ORDERED: FUROSEMIDE 20 MG/2 ML VIAL IVP ONE (12:45)
[2018-07-04] MEDS ORDERED: HYDR-2765 PO (13:02)
[2018-07-04] MEDS ORDERED: FENT1PAT17 TP (13:02)
[2018-07-04] MEDS ORDERED: LIDO1ADH10 TP (13:02)
--- NOTE | 2018-07-04 17:50 | DS ---
DATE OF DISCHARGE: 07/04/2018 HOSPITAL COURSE: A 63-year-old female in with severe right flank, right upper quadrant pain. The patient's initial x-rays were unremarkable. The patient continued to have severe pain, requiring IV pain medication as oral medication did not help her. The patient was thought to have some type of an infective process and does have a right pleural effusion. CT scan of the chest showed displaced fracture of the right 6th rib and acute fracture of the right posterior lateral 7th rib. She claims all she did was get out of bed and that is when these popping sounds happened. She is in excruciating pain. She was difficulty getting in and out of bed obviously here. Her blood pressure is 124/77, respiratory rate 20, pulse 80, afebrile. The patient's last weight was approximately 305 pounds. We will continue on pain medication as an outpatient. Given work release. IMPRESSION: Fractured ribs sixth and seventh on the right-sided, pleural effusion, intractable pain. She did have an elevated D-dimer and some of the CTA was performed. Otherwise, she will be on a regular diet, decreased activity, monitor her weight as an outpatient. Follow up in 7-10 days. Pain medication prescribed including low dose fentanyl hydrocodone and Lidoderm patch for the pain, which she says is intractable. CARMINA BARRON MD DR: RUDI/christiana JOB#: [id number] / [id number]
--- NOTE | 2018-07-07 13:37 | EKG ---
[address] [address] Test Date: 2018-07-01 Test Time: 17:02:04 Pat Name: TANK DANG Department: Room: 117 A Gender: Cisco Consultant: : 1955 Requested By: CARMINA BARRON Order Number: [id number] Reading MD: Shimon Garcia MD Measurements Intervals [place] Rate: P: ID: QRS: QRSD: T: QT: QTc: Interpretive Statements SR NON-SPECIFIC ST/T CHANGES Electronically Signed On 07-08-2018 11:46:47 PILOT CONTROL OPERATOR by Shimon Garcia MD
== END 2018-07-04 13:55 | disposition home or self-care (01) | DRG 184 ==
LOC: EDBD → 1 SOUTH 10:35
PROVIDERS: ADMIT Family Medicine; ATTEND Family Medicine
DX: S22.41XA Multiple fractures of ribs, right side, initial encounter for closed fracture (principal); J90 Pleural effusion, not elsewhere classified; I10 Essential (primary) hypertension; K21.9 Gastro-esophageal reflux disease without esophagitis; Z82.3 Family history of stroke; J45.909 Unspecified asthma, uncomplicated; Z90.710 Acquired absence of both cervix and uterus; Z90.49 Acquired absence of other specified parts of digestive tract; Z88.2 Allergy status to sulfonamides; Z88.8 Allergy status to other drugs, medicaments and biological substances; Z88.6 Allergy status to analgesic agent; Z91.041 Radiographic dye allergy status; Z88.0 Allergy status to penicillin; Z91.013 Allergy to seafood; R79.1 Abnormal coagulation profile
CPT/HCPCS: 36415; 71046; 71250; 74176; 78582; 80048; 80053; 81001; 82150; 82550; 83605; 83690; 84484; 85025; 85379; 87040; 87086; 93005; 93970; 94640; 96374; A9540; A9558; J0456; J1170; J1200; J1644; J1956; J2405; J3010; J7050; J7613; J7620; J7626; J7030

== ENCOUNTER → 2018-07-15 | Outpatient (CLI) | payer OTHER ==
[2018-07-04 10:55] VITALS: BP 124/77
[~2018-07-15] MED LIST changes: +BUDE10.2 IN; +FENT1PAT17 TP; +FLUT9.9S NS; +HYDR-2765 PO; +LIDO1ADH10 TP; +MOME45CR2 TOP; +MULT1TAB52 PO
--- NOTE | 2018-07-15 16:03 | RAD ---
EXAM: Dual energy x-ray absorptiometry (DEXA). HISTORY: Postmenopausal female presents for osteoporosis screening. COMPARISON: None. TECHNIQUE: Dual energy x-ray absorptiometry of the lumbar spine and right hip was performed. Calculation of bone mineral density based on standard deviations above or below the expected young adult normal value (T-score) was completed. FINDINGS: The average bone mineral density in the 1st through 4th lumbar vertebrae is 1.105 g/cmxcm, corresponding with a T-score of -0.6. The average total bone mineral density in the right femoral neck is 0.608 g/cmxcm, corresponding with a T-score of -2.6. IMPRESSION: 1. Osteopenia measured at the right femoral neck. 2. Normal bone mineral density measured at the lumbar spine. Note: Definitions established by the World Health Organization: 1. Normal: T-score is -1.0 or above. 2. Osteopenia: T-score is between -1.0 and -2.5 . 3. Osteoporosis: T-score is -2.5 or below. Electronically signed by: Aarti Hernandez MD (07/15/2018 4:00 PM) [id number]
== END | disposition home or self-care (01) ==
LOC: EDBD → DXRAD 15:19
PROVIDERS: ATTEND Family Medicine
DX: S22.41XA Multiple fractures of ribs, right side, initial encounter for closed fracture (principal); M85.861 Other specified disorders of bone density and structure, right lower leg; X58.XXXA Exposure to other specified factors, initial encounter; Y93.89 Activity, other specified; Y92.89 Other specified places as the place of occurrence of the external cause; Y99.8 Other external cause status
CPT/HCPCS: 77080

== ENCOUNTER → 2018-09-10 | Outpatient (CLI) | payer OTHER ==
--- NOTE | 2018-09-10 12:43 | RAD ---
Examination: CT CHEST WO CONTRAST History: Lung nodule. Asthma. Former smoker. Comparison/Correlation: 07/03/2018 CT chest without contrast Findings: Axial images of chest were obtained without contrast. Sagittal and coronal reformatted images were provided. Old right sixth and seventh rib fractures posterolaterally noted. Minimal atelectasis within right middle lobe adjacent to minor fissure is present. No enlarged thoracic lymph nodes. At the right posterior lateral lung base, there is a 0.4 cm diameter nodule on axial image 170 which has remained stable. At the left lower lobe posterior laterally in the basilar aspect near the pleura, there is a 0.5 cm calcified granuloma. Calcific granuloma involving the lingula is also present. Partially visualized upper abdomen is unremarkable. Cholecystectomy noted. Impression: Resolution of previously present right pleural effusion. Decreased minimal right middle lobe atelectasis. No suspicious pulmonary nodule. No significant change. No new nodule. PQRS Compliance Statement: One or more of the following individualized dose reduction techniques were utilized for this examination: 1. Automated exposure control 2. Adjustment of the mA and/or kV according to patient size 3. Use of iterative reconstruction technique Electronically signed by: Jay Garcia MD (09/10/2018 12:40 PM) [id number]
== END | disposition home or self-care (01) ==
LOC: CT 11:01 → EDBD 11:30
PROVIDERS: ATTEND Family Medicine
DX: J98.11 Atelectasis (principal); J90 Pleural effusion, not elsewhere classified; J84.10 Pulmonary fibrosis, unspecified; J45.909 Unspecified asthma, uncomplicated; Z87.891 Personal history of nicotine dependence; Z90.49 Acquired absence of other specified parts of digestive tract
CPT/HCPCS: 71250

== ENCOUNTER → 2018-10-28 | Outpatient (CLI) | payer OTHER ==
[2018-10-28 16:16] LABS: BASO # 0.1 x10^3/uL (0.0-0.2); BASO % 1 % (0-3); EOS # 0.4 x10^3/uL (0.0-0.7); EOS % 4 % (0-3); HEMATOCRIT 42.5 % (36.0-47.0); HEMOGLOBIN 14.2 g/dL (12.0-15.5); LYMPH # 1.9 x10^3/uL (1.0-4.8); LYMPH % 21 % (24-48); MEAN CORPUSCULAR HEMOGLOBIN 30 pg (25-35); MEAN CORPUSCULAR HGB CONC 33 g/dL (31-37); MEAN CORPUSCULAR VOLUME 89 fL (79-100); MONO # 0.5 x10^3/uL (0.0-1.1); MONO % 5 % (0-9); NEUT # 6.3 x10^3uL (1.8-7.7); NEUT % 69 % (31-73); PLATELET COUNT 351 x10^3/uL (140-400); RED BLOOD COUNT 4.76 x10^6/uL (3.50-5.40); RED CELL DISTRIBUTION WIDTH 13.6 % (11.5-14.5); WHITE BLOOD COUNT 9.2 x10^3/uL (4.0-11.0)
[2018-10-28 16:26] LABS: ALBUMIN 3.6 g/dL (3.4-5.0); CALCIUM 9.2 mg/dL (8.5-10.1); CREATININE 0.7 mg/dL (0.6-1.0); GFR 85.1; TOTAL BILIRUBIN 0.3 mg/dL (0.2-1.0); TOTAL PROTEIN 7.2 g/dL (6.4-8.2)
[2018-10-29 13:53] LABS: FREE T4 1.14 ng/dL (0.76-1.46); THYROID STIM HORMONE (TSH) 2.542 uIU/mL (0.358-3.740)
== END | disposition home or self-care (01) ==
LOC: LAB 12:36
PROVIDERS: ATTEND Family Medicine
DX: K21.9 Gastro-esophageal reflux disease without esophagitis (principal); I10 Essential (primary) hypertension; M54.5 Low back pain; F41.1 Generalized anxiety disorder; R06.02 Shortness of breath; Z79.891 Long term (current) use of opiate analgesic
CPT/HCPCS: 36415; 80053; 80061; 82306; 83540; 83550; 84439; 84443; 85025

== ENCOUNTER 2018-11-30 12:12 | Emergency (ER) | payer OTHER ==
[~2018-11-30] VITALS: Ht 162.6 cm; Wt 124.5 kg
[~2018-11-30 12:12] MED LIST changes: -TIZA4TAB PO; +TIZA4TAB2 PO
[2018-11-30] MEDS ORDERED: IV NORMAL SALINE 1,000ML 1,000 ML IV ONE (12:45)
--- NOTE | 2018-11-30 12:54 | PHYS DOC ---
Past History Past Medical History: Arthritis, Asthma, Bronchitis, Sinusitis Past Surgical History: , Hysterectomy, Other Alcohol Use: Rarely Drug Use: None Adult General Chief Complaint Chief Complaint: ALLERGIC REACTION HPI HPI 63-year-old female presents with possible allergic reaction. The patient was taking a shower and when she got out she looked in the mirror discomfort there were splotches on both sides of her cheeks. She also noticed a larger area on her right hip. After a few minutes, she began to notice some dime size splotches on her bilateral lower arms. They are not pruritic. She called her physician who recommended she come to the emergency room. On arrival to the emergency room, the splotches on her arms have a did but the ones on her face and her right hip have remained. The patient has several allergies. She does not believe she came in contact with anything she is allergic to recently. She has not changed any of her cosmetic products or soaps at home. She has started a new medication, but she started 3 weeks ago. No new dosing change. Patient denies fever or chills. Review of Systems Review of Systems Constitutional: Denies fever or chills [] Eyes: Denies change in visual acuity, redness, or eye pain [] HENT: Denies nasal congestion or sore throat [] Respiratory: Denies cough or shortness of breath [] Cardiovascular: No additional information not addressed in HPI [] GI: Denies abdominal pain, nausea, vomiting, bloody stools or diarrhea [] : Denies dysuria or hematuria [] Musculoskeletal: Denies back pain or joint pain [] Integument: rash [] Neurologic: Denies headache, focal weakness or sensory changes [] Endocrine: Denies polyuria or polydipsia [] All other systems were reviewed and found to be within normal limits, except as documented in this note. Current Medications Current Medications Current Medications Medications (Trade) Dose Ordered Sig/Marshall Start Time Stop Time Status Last Admin Dose Admin Diphenhydramine HCl (Benadryl) 25 mg 1X ONCE 11/30/18 13:00 11/30/18 13:01 Famotidine (Pepcid Vial) 20 mg 1X ONCE 11/30/18 13:30 11/30/18 13:31 Methylprednisolone Sodium Succinate (SOLU-Medrol 125MG VIAL) 125 mg 1X ONCE 11/30/18 13:00 11/30/18 13:01 Sodium Chloride 1,000 ml @ 1,000 mls/hr 1X ONCE 11/30/18 12:45 11/30/18 13:44 Allergies Allergies Allergies Coded Allergies Type Severity Reaction Last Updated Verified hydromorphone Allergy Severe 07/01/18 Yes fish derived Allergy Intermediate 11/07/14 Yes iodine Allergy Intermediate Hives 07/02/18 Yes nabumetone Allergy Intermediate 01/08/15 Yes tizanidine Allergy Intermediate 01/08/15 Yes Penicillins Adverse Reaction Intermediate 11/07/14 Yes Sulfa (Sulfonamide Antibiotics) Adverse Reaction Intermediate 11/07/14 Yes aspirin Adverse Reaction Intermediate 11/07/14 Yes latex Adverse Reaction Intermediate 11/07/14 Yes Physical Exam Physical Exam Constitutional: Well developed, morbidly obese, well nourished, no acute distress, non-toxic appearance. [] HENT: Normocephalic, atraumatic, bilateral external ears normal, oropharynx moist, no oral exudates, nose normal. [] Eyes: PERRLA, EOMI, conjunctiva normal, no discharge. [] Neck: Normal range of motion, no tenderness, supple, no stridor. [] Cardiovascular:Heart rate regular rhythm, no murmur [] Lungs & Thorax: Bilateral breath sounds clear to auscultation [] Abdomen: Bowel sounds normal, soft, no tenderness, no masses, no pulsatile masses. [] Skin: Urticaria on bilateral cheeks, forehead, larger lesion with a central blister on the right hip 3 cm x 7 cm.[] Back: No tenderness, no CVA tenderness. [] Extremities: No tenderness, no cyanosis, no clubbing, ROM intact, no edema. [] Neurologic: Alert and oriented X 3, normal motor function, normal sensory function, no focal deficits noted. [] Psychologic: Affect normal, judgement normal, mood normal. [] Current Patient Data Vital Signs Vital Signs Date Time Temp Pulse Resp B/P (MAP) Pulse Ox O2 Delivery O2 Flow Rate FiO2 11/30/18 12:25 98.0 83 22 95 Room Air EKG EKG [] Radiology/Procedures Radiology/Procedures [] Course & Med Decision Making Course & Med Decision Making Pertinent Labs and Imaging studies reviewed. (See chart for details) The patient's labs are unremarkable. She was given 125 of Solu-Medrol, 25 mg Benadryl, and 20 mg of Pepcid IV for her reaction. The intensity of her rash has decreased. She has had no difficulty breathing at any time in the ED. She feels well enough to go home. She is stable for discharge at this time. [] Dragon Disclaimer Dragon Disclaimer This electronic medical record was generated, in whole or in part, using a voice recognition dictation system. Departure Departure: Impression: Primary Impression: Allergic reaction Disposition: HOME, SELF-CARE Condition: STABLE Referrals: CARMINA BARRON MD (PCP) Patient Instructions: Allergies, Generic Problem Qualifiers Primary Impression: Allergic reaction Encounter type: initial encounter Qualified Codes: T78.40XA - Allergy, unspecified, initial encounter KEVIN WILKINSON DO Nov 30, 2018 12:54
[2018-11-30 12:55] LABS: BASO # 0.1 x10^3/uL (0.0-0.2); BASO % 2 % (0-3); EOS # 0.3 x10^3/uL (0.0-0.7); EOS % 3 % (0-3); HEMATOCRIT 41.3 % (36.0-47.0); HEMOGLOBIN 13.9 g/dL (12.0-15.5); LYMPH % 22 % (24-48); MEAN CORPUSCULAR HEMOGLOBIN 30 pg (25-35); MEAN CORPUSCULAR HGB CONC 34 g/dL (31-37); MEAN CORPUSCULAR VOLUME 90 fL (79-100); MONO # 0.4 x10^3/uL (0.0-1.1); MONO % 5 % (0-9); NEUT # 6.2 x10^3uL (1.8-7.7); NEUT % 68 % (31-73); PLATELET COUNT 324 x10^3/uL (140-400); RED BLOOD COUNT 4.61 x10^6/uL (3.50-5.40); RED CELL DISTRIBUTION WIDTH 13.5 % (11.5-14.5); WHITE BLOOD COUNT 9.1 x10^3/uL (4.0-11.0)
[2018-11-30] MEDS ORDERED: diphenhydrAMINE 50 MG/ML VIAL IVP ONE (13:00)
[2018-11-30] MEDS ORDERED: methylPREDNISolone SOD SUCC PF 125 MG/2 ML VIAL. IV ONE (13:00)
[2018-11-30 13:22] LABS: ALBUMIN 3.5 g/dL (3.4-5.0); CALCIUM 9.3 mg/dL (8.5-10.1); CREATININE 0.8 mg/dL (0.6-1.0); GFR 72.9; TOTAL BILIRUBIN 0.5 mg/dL (0.2-1.0); TOTAL PROTEIN 7.1 g/dL (6.4-8.2)
[2018-11-30] MEDS ORDERED: FAMOTIDINE 20 MG/2 ML VIAL IVP ONE (13:30)
[2018-11-30 14:35] VITALS: BP 146/82
== END 2018-11-30 14:46 | disposition home or self-care (01) ==
LOC: ER 12:12
DX: T78.40XA Allergy, unspecified, initial encounter (principal); M19.90 Unspecified osteoarthritis, unspecified site; J45.909 Unspecified asthma, uncomplicated; Z88.2 Allergy status to sulfonamides; Z88.8 Allergy status to other drugs, medicaments and biological substances; Z88.6 Allergy status to analgesic agent; Z91.040 Latex allergy status; Z88.5 Allergy status to narcotic agent; Z88.0 Allergy status to penicillin; Z91.013 Allergy to seafood; X58.XXXA Exposure to other specified factors, initial encounter
CPT/HCPCS: 36415; 80053; 85025; 96374; 96375; 99285; J1200; J2930; J3490; J7030

== ENCOUNTER 2018-12-13 13:34 | Emergency (ER) | payer OTHER ==
[~2018-12-13] VITALS: Ht 162.6 cm; Wt 135.6 kg
[2018-12-13] MEDS ORDERED: IV NORMAL SALINE 1,000ML 1,000 ML IV SCH (14:06)
--- NOTE | 2018-12-13 14:09 | RAD ---
CHEST AP ONLY Clinical indications: Shortness of air. COMPARISON: July 02, 2018 chest x-ray. Chest CT dated September 10, 2018. Findings: No acute lung infiltrate or pleural effusion or pulmonary edema or lung mass or pneumothorax is seen. The heart size, pulmonary vasculature, mediastinum and both joseph are unremarkable. Healing fractures of the right sixth and seventh ribs are seen. These fractures or seen on chest CT dated September 10, 2018. Postoperative changes of the left AC joint are seen. Impression: No acute radiographic abnormality is seen. Healing subacute right sixth and seventh rib fractures. Electronically signed by: Salbador Briceno MD (12/13/2018 2:06 PM) [place] [id number]
[2018-12-13 14:12] LABS: BASO # 0.1 x10^3/uL (0.0-0.2); BASO % 1 % (0-3); EOS # 0.2 x10^3/uL (0.0-0.7); EOS % 2 % (0-3); HEMATOCRIT 40.3 % (36.0-47.0); HEMOGLOBIN 13.5 g/dL (12.0-15.5); LYMPH % 25 % (24-48); MEAN CORPUSCULAR HEMOGLOBIN 30 pg (25-35); MEAN CORPUSCULAR HGB CONC 34 g/dL (31-37); MEAN CORPUSCULAR VOLUME 90 fL (79-100); MONO # 0.5 x10^3/uL (0.0-1.1); MONO % 6 % (0-9); NEUT # 5.3 x10^3uL (1.8-7.7); NEUT % 66 % (31-73); PLATELET COUNT 344 x10^3/uL (140-400); RED BLOOD COUNT 4.48 x10^6/uL (3.50-5.40); RED CELL DISTRIBUTION WIDTH 14.1 % (11.5-14.5)
[2018-12-13] MEDS ORDERED: ONDANSETRON PF 4 MG/2 ML VIAL. IV ONE (14:15)
[2018-12-13 14:27] LABS: ALBUMIN 3.4 g/dL (3.4-5.0); ALBUMIN/GLOBULIN RATIO 1.1 (1.0-1.7); CREATININE 0.8 mg/dL (0.6-1.0); GFR 72.9; POTASSIUM 4.3 mmol/L (3.5-5.1); TOTAL BILIRUBIN 0.4 mg/dL (0.2-1.0); TOTAL PROTEIN 6.6 g/dL (6.4-8.2)
--- NOTE | 2018-12-13 14:40 | RAD ---
CT HEAD WITHOUT CONTRAST 12/13/2018 2:06 PM Indication: New onset dizziness, headache. Comparison: CT of the head without contrast November 17, 2016 Procedure: Multidetector CT imaging of the head was performed without the administration of contrast. Findings: Motion artifact somewhat limits exam. There is no evidence of acute intracranial hemorrhage. There is no evidence of acute territorial infarction. Please note that CT is limited for evaluation of acute ischemia. No mass effect or midline shift is identified . The ventricles and basilar cisterns have an appropriate appearance. No abnormal extra-axial fluid collections are seen. No acute osseous changes are identified. Impression: No evidence of acute intracranial abnormality CT DOSING PQRS STATEMENT: One or more of the following individualized dose reduction techniques were utilized for this examination: 1. Automated exposure control 2. Adjustment of the mA and/or kV according to patient size 3. Use of iterative reconstruction technique Electronically signed by: Blaine Rhodes MD (12/13/2018 2:37 PM) [email or web address]
[2018-12-13 15:02] LABS: CLARITY,URINE CLEAR; COLOR,URINE YELLOW
[2018-12-13 15:03] LABS: BACTERIA,URINE 0 /HPF (0-FEW); BILIRUBIN,URINE NEG (NEG); GLUCOSE,URINE NEG (NEG); NITRITE,URINE NEG (NEG); RBC,URINE 0 /HPF (0-2); SQUAMOUS EPITHELIAL CELL,UR OCC /LPF; UROBILINOGEN,URINE 0.2 mg/dL (0.2 mg/dL); WBC,URINE RARE /HPF (0-4)
--- NOTE | 2018-12-13 16:02 | PHYS DOC ---
Past History Past Medical History: Arthritis, Asthma, Bronchitis, Sinusitis Past Surgical History: , Hysterectomy, Other Alcohol Use: Rarely Drug Use: None Adult General Chief Complaint Chief Complaint: SHORTNESS OF BREATH HPI HPI Patient is a 63 year old female who presents with complaint of sudden onset dizziness and chest pressure. The patient states that this happened suddenly prior to arrival. 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 The patient noted that she started to feel very dizzy. States that she also had associated shortness of breath and right-sided chest pressure with her symptoms. She notes that she felt like she is going to pass out unless had to lay down. Did not lose consciousness. Was brought to the emergency department by EMS for further evaluation. Notes history of asthma and arthritis. States that she feels slightly anxious at this time. Denies abdominal pain or vomiting but does have nausea which happens whenever she experiences the dizziness. Notes that the dizziness worsens when she tries to get up and move or when she turns her head. States that it resolves while at rest. Review of Systems Review of Systems Constitutional: Denies fever or chills [] Eyes: Denies change in visual acuity, redness, or eye pain [] HENT: Denies nasal congestion or sore throat [] Respiratory: Shortness of breath[] Cardiovascular: Chest pressure, denies edema[] GI: Denies abdominal pain, nausea, vomiting, bloody stools or diarrhea [] : Denies dysuria or hematuria [] Musculoskeletal: Denies back pain or joint pain [] Integument: Denies rash or skin lesions [] Neurologic: Dizziness[] All other systems were reviewed and found to be within normal limits, except as documented in this note. Current Medications Current Medications Current Medications Medications (Trade) Dose Ordered Sig/Marshall Start Time Stop Time Status Last Admin Dose Admin Lorazepam (Ativan Inj) 1 mg 1X ONCE 12/13/18 14:15 12/13/18 14:16 DC 12/13/18 14:32 1 MG Ondansetron HCl (Zofran) 4 mg 1X ONCE 12/13/18 14:15 12/13/18 14:16 DC 12/13/18 14:32 4 MG Sodium Chloride 1,000 ml @ 1,000 mls/hr Q1H 12/13/18 14:06 12/13/18 15:05 DC 12/13/18 14:32 1,000 MLS/HR Allergies Allergies Allergies Coded Allergies Type Severity Reaction Last Updated Verified hydromorphone Allergy Severe 07/01/18 Yes fish derived Allergy Intermediate 11/07/14 Yes iodine Allergy Intermediate Hives 07/02/18 Yes nabumetone Allergy Intermediate 01/08/15 Yes tizanidine Allergy Intermediate 01/08/15 Yes Penicillins Adverse Reaction Intermediate 11/07/14 Yes Sulfa (Sulfonamide Antibiotics) Adverse Reaction Intermediate 11/07/14 Yes aspirin Adverse Reaction Intermediate 11/07/14 Yes latex Adverse Reaction Intermediate 11/07/14 Yes Physical Exam Physical Exam Constitutional: Alert, afebrile, appears in mild discomfort. [] HENT: Normocephalic, atraumatic, bilateral external ears normal, oropharynx moist, no oral exudates, nose normal. [] Eyes: PERRLA, EOMI, horizontal nystatin is present, conjunctiva normal, no discharge. [] Neck: Normal range of motion, no tenderness, supple, no stridor. [] Cardiovascular:Heart rate regular rhythm, no murmur [] Lungs & Thorax: Bilateral breath sounds clear to auscultation [] Abdomen: Bowel sounds normal, soft, no tenderness, no masses, no pulsatile masses. [] Skin: Warm, dry, no erythema, no rash. [] Back: No tenderness, no CVA tenderness. [] Extremities: No tenderness, no cyanosis, no clubbing, ROM intact, no edema. [] Neurologic: Alert and oriented X 3, normal motor function, normal sensory function, no focal deficits noted. [] Current Patient Data Vital Signs Vital Signs Date Time Temp Pulse Resp B/P (MAP) Pulse Ox O2 Delivery O2 Flow Rate FiO2 12/13/18 17:15 76 22 125/62 (83) 94 Room Air 12/13/18 13:50 98.9 Lab Results Laboratory Tests Test 12/13/18 13:45 12/13/18 14:25 White Blood Count 8.0 x10^3/uL (4.0-11.0) Red Blood Count 4.48 x10^6/uL (3.50-5.40) Hemoglobin 13.5 g/dL (12.0-15.5) Hematocrit 40.3 % (36.0-47.0) Mean Corpuscular Volume 90 fL (79-100) Mean Corpuscular Hemoglobin 30 pg (25-35) Mean Corpuscular Hemoglobin Concent 34 g/dL (31-37) Red Cell Distribution Width 14.1 % (11.5-14.5) Platelet Count 344 x10^3/uL (140-400) Neutrophils (%) (Auto) 66 % (31-73) Lymphocytes (%) (Auto) 25 % (24-48) Monocytes (%) (Auto) 6 % (0-9) Eosinophils (%) (Auto) 2 % (0-3) Basophils (%) (Auto) 1 % (0-3) Neutrophils # (Auto) 5.3 x10^3uL (1.8-7.7) Lymphocytes # (Auto) 2.0 x10^3/uL (1.0-4.8) Monocytes # (Auto) 0.5 x10^3/uL (0.0-1.1) Eosinophils # (Auto) 0.2 x10^3/uL (0.0-0.7) Basophils # (Auto) 0.1 x10^3/uL (0.0-0.2) Sodium Level 142 mmol/L (136-145) Potassium Level 4.3 mmol/L (3.5-5.1) Chloride Level 104 mmol/L (98-107) Carbon Dioxide Level 30 mmol/L (21-32) Anion Gap 8 (6-14) Blood Urea Nitrogen 22 mg/dL (7-20) H Creatinine 0.8 mg/dL (0.6-1.0) Estimated GFR (Cockcroft-Gault) 72.9 BUN/Creatinine Ratio 28 (6-20) H Glucose Level 105 mg/dL (70-99) H Calcium Level 9.0 mg/dL (8.5-10.1) Magnesium Level 2.0 mg/dL (1.8-2.4) Total Bilirubin 0.4 mg/dL (0.2-1.0) Aspartate Amino Transferase (AST) 13 U/L (15-37) L Alanine Aminotransferase (ALT) 27 U/L (14-59) Alkaline Phosphatase 112 U/L (46-116) Troponin I Quantitative < 0.017 ng/mL (0-0.055) Total Protein 6.6 g/dL (6.4-8.2) Albumin 3.4 g/dL (3.4-5.0) Albumin/Globulin Ratio 1.1 (1.0-1.7) Urine Collection Type Unknown Urine Color Yellow Urine Clarity Clear Urine pH 6.0 Urine Specific [place] 1.020 Urine Protein Neg (NEG-TRACE) Urine Glucose (UA) Neg mg/dL (NEG) Urine Ketones (Stick) Neg mg/dL (NEG) Urine Blood Neg (NEG) Urine Nitrite Neg (NEG) Urine Bilirubin Neg (NEG) Urine Urobilinogen Dipstick 0.2 mg/dL (0.2 mg/dL) Urine Leukocyte Esterase Neg (NEG) Urine RBC 0 /HPF (0-2) Urine WBC Rare /HPF (0-4) Urine Squamous Epithelial Cells Occ /LPF Urine Bacteria 0 /HPF (0-FEW) Urine Mucus Slight /LPF EKG EKG Interpreted by me: Heart rate 82, sinus rhythm, normal intervals, normal axis, no acute ST/T-wave abnormalities present[] Radiology/Procedures Radiology/Procedures [address] [address] IMAGING REPORT Signed PATIENT: TANK DANG ACCOUNT: [id number] : 1955 LOCATION: ER AGE: 63 SEX: F EXAM STATUS: REG ER ORD. PHYSICIAN: RASHAUN PEACOCK MD REASON: severe onset dizziness, headache PROCEDURE: CT HEAD WO CONTRAST CT HEAD WITHOUT CONTRAST 12/13/2018 2:06 PM Indication: New onset dizziness, headache. Comparison: CT of the head without contrast November 17, 2016 Procedure: Multidetector CT imaging of the head was performed without the administration of contrast. Findings: Motion artifact somewhat limits exam. There is no evidence of acute intracranial hemorrhage. There is no evidence of acute territorial infarction. Please note that CT is limited for evaluation of acute ischemia. No mass effect or midline shift is identified . The ventricles and basilar cisterns have an appropriate appearance. No abnormal extra-axial fluid collections are seen. No acute osseous changes are identified. Impression: No evidence of acute intracranial abnormality CT DOSING PQRS STATEMENT: One or more of the following individualized dose reduction techniques were utilized for this examination: 1. Automated exposure control 2. Adjustment of the mA and/or kV according to patient size 3. Use of iterative reconstruction technique Electronically signed by: Blaine Marte MD (12/13/2018 2:37 PM) [email or web address] DICTATED AND SIGNED BY: BLAINE MARTE MD DATE: 12/13/18 [id number] CC: CARMINA BARRON MD; RASHAUN PEACOCK MD ~ [place] [address] IMAGING REPORT Signed PATIENT: TANK DANG ACCOUNT: [id number] : 1955 LOCATION: ER AGE: 63 SEX: F EXAM STATUS: REG ER ORD. PHYSICIAN: RASHAUN PEACOCK MD REASON: soa PROCEDURE: CHEST AP ONLY CHEST AP ONLY Clinical indications: Shortness of air. COMPARISON: July 02, 2018 chest x-ray. Chest CT dated September 10, 2018. Findings: No acute lung infiltrate or pleural effusion or pulmonary edema or lung mass or pneumothorax is seen. The heart size, pulmonary vasculature, mediastinum and both joseph are unremarkable. Healing fractures of the right sixth and seventh ribs are seen. These fractures or seen on chest CT dated September 10, 2018. Postoperative changes of the left AC joint are seen. Impression: No acute radiographic abnormality is seen. Healing subacute right sixth and seventh rib fractures. Electronically signed by: Juan José Briceno MD (12/13/2018 2:06 PM) [email or web address] DICTATED AND SIGNED BY: JUAN JOSÉ BRICENO MD DATE: 12/13/18 1406 CC: CARMINA BARRON MD; RASHAUN PEACOCK MD ~ [] Course & Med Decision Making Course & Med Decision Making Pertinent Labs and Imaging studies reviewed. (See chart for details) The patient was started on IV fluids and was given IV Ativan for treatment of vertigo symptoms. The patient states that her symptoms have improved but is noting continued mild dizziness at this time. Patient is ambulating independently. Due to persistent symptoms with no obvious cause based off of today's testing, I did offer the patient admission to the hospital for further evaluation and treatment. The patient has refused at this time stating that she wants to go home and continue with outpatient treatment at this time. Given ibuprofen and meclizine. Advised strict 24-hour follow-up with primary doctor for reevaluation and recommended return to the emergency department for any worsening symptoms. Patient voiced understanding and in agreement with treatment plan.[] Dragon Disclaimer Dragon Disclaimer This electronic medical record was generated, in whole or in part, using a voice recognition dictation system. Departure Departure: Impression: Primary Impression: Vertigo Additional Impression: Sensation of chest pressure Disposition: HOME, SELF-CARE Condition: IMPROVED Referrals: CARMINA BARRON MD (PCP) Patient Instructions: Vertigo Additional Instructions: Follow-up with Dr. Barron tomorrow for reevaluation. Return to the emergency department for any worsening symptoms. Scripts Meclizine Hcl (MECLIZINE HCL) 25 Mg Tablet 1 TAB PO TID PRN for DIZZINESS, #30 TAB Prov: RASHAUN PEACOCK MD 12/13/18 Problem Qualifiers RASHAUN PEACOCK MD Dec 13, 2018 16:02
[2018-12-13] MEDS ORDERED: MECLIZINE 12.5 MG TABLET. PO STA (16:17)
[2018-12-13] MEDS ORDERED: IBUPROFEN 400 MG TABLET. PO ONE (16:30)
[2018-12-13 17:15] VITALS: BP 125/62
[2018-12-13] MEDS ORDERED: MECL25TA3 PO (17:26)
== END 2018-12-13 17:35 | disposition home or self-care (01) ==
LOC: ER 13:34
DX: R42 Dizziness and giddiness (principal); R07.89 Other chest pain; M19.90 Unspecified osteoarthritis, unspecified site; J45.909 Unspecified asthma, uncomplicated; Z88.5 Allergy status to narcotic agent; Z88.8 Allergy status to other drugs, medicaments and biological substances; Z88.0 Allergy status to penicillin; Z88.2 Allergy status to sulfonamides; Z91.040 Latex allergy status; Z91.013 Allergy to seafood
CPT/HCPCS: 36415; 70450; 71045; 80053; 81001; 83735; 84484; 85025; 96361; 96374; 96375; 99285; J2060; J2405; J8597; J7030

== ENCOUNTER → 2018-12-28 | Outpatient (CLI) | payer OTHER ==
[2018-12-13 17:15] VITALS: BP 125/62
[2018-12-28 12:27] LABS: BASO # 0.1 x10^3/uL (0.0-0.2); BASO % 1 % (0-3); EOS # 0.3 x10^3/uL (0.0-0.7); EOS % 3 % (0-3); HEMATOCRIT 42.6 % (36.0-47.0); HEMOGLOBIN 14.1 g/dL (12.0-15.5); LYMPH # 2.2 x10^3/uL (1.0-4.8); LYMPH % 24 % (24-48); MEAN CORPUSCULAR HEMOGLOBIN 30 pg (25-35); MEAN CORPUSCULAR HGB CONC 33 g/dL (31-37); MEAN CORPUSCULAR VOLUME 90 fL (79-100); MONO # 0.5 x10^3/uL (0.0-1.1); MONO % 6 % (0-9); NEUT # 6.1 x10^3uL (1.8-7.7); NEUT % 66 % (31-73); PLATELET COUNT 337 x10^3/uL (140-400); RED BLOOD COUNT 4.72 x10^6/uL (3.50-5.40); WHITE BLOOD COUNT 9.2 x10^3/uL (4.0-11.0)
[2018-12-28 12:28] LABS: CALCIUM 9.4 mg/dL (8.5-10.1); CREATININE 0.9 mg/dL (0.6-1.0); GFR 63.7; POTASSIUM 4.2 mmol/L (3.5-5.1)
== END | disposition home or self-care (01) ==
LOC: LAB 12:05
PROVIDERS: ATTEND Family Medicine
DX: F41.1 Generalized anxiety disorder (principal); R26.2 Difficulty in walking, not elsewhere classified
CPT/HCPCS: 36415; 80048; 85025

== ENCOUNTER 2019-03-26 18:46 | Emergency (ER) | payer OTHER ==
[~2019-03-26 18:46] MED LIST changes: -MOME45CR2 TOP; +MOME45CR3 TOP
[2019-03-26 19:03] VITALS: BP 137/80
--- NOTE | 2019-03-26 19:52 | RAD ---
EXAM: Right shoulder, 3 views. HISTORY: Trauma. Pain. COMPARISON: None. FINDINGS: 3 views of the right shoulder obtained. There are displaced right sixth and seventh rib fractures. There is no shoulder dislocation or subluxation. There is marginal inferior humeral head spurring and glenohumeral subchondral sclerosis and subchondral cyst formation. IMPRESSION: 1. Displaced right sixth and seventh rib fractures. 2. Mild right glenohumeral osteoarthritis. Electronically signed by: Aarti Hernandez MD (03/26/2019 7:49 PM) [facility]
[2019-03-26] MEDS ORDERED: METH4TAB2 PO (20:30)
[2019-03-26] MEDS ORDERED: GABA-585 PO (20:30)
--- NOTE | 2019-03-26 21:09 | PHYS DOC ---
Past History Past Medical History: Arthritis, Hypertension Past Surgical History: Cholecystectomy, Hysterectomy Alcohol Use: None Drug Use: None Adult General Chief Complaint Chief Complaint: UPPER EXTREMITY PAIN HPI HPI Patient is a 63-year-old female who presents with 2-3 weeks of right trapezius right neck right shoulder pain rating down to the right elbow. Really she did not have any recent trauma about a month ago she did fall back on her bed and she sort of caught her right shoulder the wrong way she felt that maybe that could've been contributed to it she did not fall hard or hit her head or neck. 6 months ago she sustained an injury where she had rib fractures she said she knows those right-sided rib fractures are still presently still sometimes bother her. They are not new though and she has not had new rib trauma she tells me. No numbness tingling or weakness just that hurts when she tries to use her right arm has Lortab that she sometimes takes at home but she hasn't really been using it yet. Primary care doctor is Dr. Santiago Review of Systems Review of Systems Constitutional: Denies fever or chills [] Eyes: Denies change in visual acuity, redness, or eye pain [] HENT: Denies nasal congestion or sore throat [] Respiratory: Denies cough or shortness of breath [] Cardiovascular: No additional information not addressed in HPI [] GI: Denies abdominal pain, nausea, vomiting, bloody stools or diarrhea [] : Denies dysuria or hematuria [] Musculoskeletal: Denies back pain or joint pain [] All other systems were reviewed and found to be within normal limits, except as documented in this note. Allergies Allergies Allergies Coded Allergies Type Severity Reaction Last Updated Verified hydromorphone Allergy Severe 07/01/18 Yes fish derived Allergy Intermediate 11/07/14 Yes iodine Allergy Intermediate Hives 07/02/18 Yes nabumetone Allergy Intermediate 01/08/15 Yes tizanidine Allergy Intermediate 01/08/15 Yes Penicillins Adverse Reaction Intermediate 11/07/14 Yes Sulfa (Sulfonamide Antibiotics) Adverse Reaction Intermediate 11/07/14 Yes aspirin Adverse Reaction Intermediate 11/07/14 Yes latex Adverse Reaction Intermediate 11/07/14 Yes Physical Exam Physical Exam Constitutional: Well developed, well nourished, no acute distress, non-toxic appearance. [] HENT: Normocephalic, atraumatic, bilateral external ears normal, oropharynx moist, no oral exudates, nose normal. [] Eyes: PERRLA, EOMI, conjunctiva normal, no discharge. [] Neck: Trapezius tenderness on the right but no focal midline tenderness Pulmonary: Normal respiratory effort no increased work of breathing no obvious chest wall trauma Abdomen: Bowel sounds normal, soft, no tenderness, no masses, no pulsatile masses. [] Skin: Warm, dry, no erythema, no rash. [] Back: No tenderness, no CVA tenderness. [] Extremities: No tenderness, no cyanosis, no clubbing, ROM intact, no edema. [] Neurologic: Alert and oriented X 3, normal motor function, normal sensory function, no focal deficits noted. [] Psychologic: Affect normal, judgement normal, mood normal. [] Current Patient Data Vital Signs Vital Signs Date Time Temp Pulse Resp B/P (MAP) Pulse Ox O2 Delivery O2 Flow Rate FiO2 03/26/19 19:03 98.1 96 18 96 Room Air * Mild Temperature (Fahrenheit): * 98.1 degrees F (97.6-99.5) Patient Temperature * 98.1 degrees F (97.5-99.5) Temperature Source * Oral Blood Pressure Systolic * 137 mm Hg (100-140) Blood Pressure Diastolic * 80 mm Hg (60-100) Blood Pressure Mean * 99 mm Hg Blood Pressure Location * Left Arm Blood Pressure Source * Automatic Cuff Pulse Rate * 96 beats per minute (60-90) H Pulse Assessment Method * Monitor Respiratory Rate * 18 breaths per minute (12-24) Oxygen Delivery Method * Room Air Bedside Pulse Oximetry * 96 % Treatment Prior to Arrival EKG EKG [] Radiology/Procedures Radiology/Procedures [] Impressions: FINDINGS: 3 views of the right shoulder obtained. There are displaced right sixth and seventh rib fractures. There is no shoulder dislocation or subluxation. There is marginal inferior humeral head spurring and glenohumeral subchondral sclerosis and subchondral cyst formation. IMPRESSION: 1. Displaced right sixth and seventh rib fractures. 2. Mild right glenohumeral osteoarthritis. Electronically signed by: Aarti Colby MD (03/26/2019 7:49 PM) [id number] DICTATED AND SIGNED BY: AARTI COLBY MD DATE: 03/26/191948 CC: CARMINA BARRON MD; LAUREN GERONIMO MD ~ Course & Med Decision Making Course & Med Decision Making Pertinent Labs and Imaging studies reviewed. (See chart for details) []Based on the symptoms I think the patient probably has radiculopathy she was treated as such Medrol Dosepak gabapentin and Lortab at home as needed follow-up with primary care doctor next week. Patient is neurologically intact radial pulse intact no arm swelling no focal midline C-spine tenderness. Rib fractures according to the patient are old reassurance was provided return precautions given Dragon Disclaimer Dragon Disclaimer This electronic medical record was generated, in whole or in part, using a voice recognition dictation system. Departure Departure: Impression: Primary Impression: Radiculopathy Disposition: 01 HOME, SELF-CARE Condition: STABLE Patient Instructions: Radicular Pain Scripts Gabapentin (GABAPENTIN ) 100 Mg Capsule 100 MG PO TID for NEUROGENIC PAIN, #21 CAP Prov: LAUREN GERONIMO MD 03/26/19 Methylprednisolone (MEDROL) 4 Mg Tab.ds.pk 1 PKG PO UD for radiculopathy, #1 PKG Prov: LAUREN GERONIMO MD 03/26/19 LAUREN GERONIMO MD Mar 26, 2019 21:09
== END 2019-03-26 20:51 | disposition home or self-care (01) ==
LOC: ER 18:46
DX: M54.10 Radiculopathy, site unspecified (principal); M54.2 Cervicalgia; M25.511 Pain in right shoulder; M19.011 Primary osteoarthritis, right shoulder; I10 Essential (primary) hypertension; Z88.8 Allergy status to other drugs, medicaments and biological substances; Z88.2 Allergy status to sulfonamides; Z88.6 Allergy status to analgesic agent; Z91.040 Latex allergy status; Z91.013 Allergy to seafood; Z88.5 Allergy status to narcotic agent
CPT/HCPCS: 73030; 99284

== ENCOUNTER → 2019-04-05 | Outpatient (CLI) | payer OTHER ==
[2019-03-26 19:03] VITALS: BP 137/80
[~2019-04-05] MED LIST changes: +GABA-585 PO; +METH4TAB2 PO
[2019-04-05 17:48] LABS: BASO # 0.1 x10^3/uL (0.0-0.2); BASO % 1 % (0-3); EOS # 0.1 x10^3/uL (0.0-0.7); EOS % 2 % (0-3); HEMOGLOBIN 14.6 g/dL (12.0-15.5); LYMPH # 1.6 x10^3/uL (1.0-4.8); LYMPH % 20 % (24-48); MEAN CORPUSCULAR HEMOGLOBIN 30 pg (25-35); MEAN CORPUSCULAR HGB CONC 33 g/dL (31-37); MEAN CORPUSCULAR VOLUME 90 fL (79-100); MONO # 0.4 x10^3/uL (0.0-1.1); MONO % 5 % (0-9); NEUT % 73 % (31-73); PLATELET COUNT 335 x10^3/uL (140-400); RED BLOOD COUNT 4.89 x10^6/uL (3.50-5.40); RED CELL DISTRIBUTION WIDTH 13.8 % (11.5-14.5); WHITE BLOOD COUNT 8.3 x10^3/uL (4.0-11.0)
[2019-04-05 17:55] LABS: CREATININE 0.7 mg/dL (0.6-1.0); GFR 85.1; POTASSIUM 4.3 mmol/L (3.5-5.1)
[2019-04-06 14:07] LABS: FREE T4 1.24 ng/dL (0.76-1.46); THYROID STIM HORMONE (TSH) 2.145 uIU/mL (0.358-3.740)
== END | disposition home or self-care (01) ==
LOC: LAB 17:16
PROVIDERS: ATTEND Family Medicine
DX: F51.01 Primary insomnia (principal); I99.8 Other disorder of circulatory system; M62.838 Other muscle spasm
CPT/HCPCS: 36415; 80048; 84439; 84443; 85025; 85610; 85730

== ENCOUNTER 2019-06-01 13:12 | Emergency (ER) | payer OTHER ==
[~2019-06-01] VITALS: Ht 162.6 cm; Wt 124.5 kg
[~2019-06-01 13:12] MED LIST changes: +MECL-75 PO; -MECL25TA3 PO; +TRAZ-125 PO; -TRAZ-86 PO
[2019-06-01] MEDS ORDERED: FAMOTIDINE 20 MG TABLET PO ONE (13:30)
[2019-06-01] MEDS ORDERED: methylPREDNISolone SOD SUCC PF 125 MG/2 ML VIAL. IM ONE (13:30)
[2019-06-01] MEDS ORDERED: diphenhydrAMINE 50 MG/ML VIAL IM ONE (13:30)
[2019-06-01] MEDS ORDERED: ACETAMINOPHEN 500 MG TABLET PO ONE (15:30)
[2019-06-01] MEDS ORDERED: HYDR25TA PO (15:35)
[2019-06-01] MEDS ORDERED: FAMO-63 PO (15:35)
[2019-06-01] MEDS ORDERED: PRED20TA PO (15:35)
--- NOTE | 2019-06-01 15:36 | PHYS DOC ---
Past History Past Medical History: Arthritis, Hypertension Past Surgical History: Cholecystectomy, Hysterectomy Alcohol Use: None Drug Use: None Adult General Chief Complaint Chief Complaint: SKIN PROBLEM HPI HPI Patient is a 63-year-old female presented to ER today for evaluation of itching rash on her family and on her right waistline area when she woke up this morning. Patient denies any fever, no chest pain, no trouble breathing. Patient denies any recent change in her medications, not being exposed to any new cloth or perfume or detergent. Patient denied any shortness of air, no chest pain, no throat swelling or tongue swelling. All other ROS is negative unless otherwise noted in HPI Review of Systems Review of Systems See above Current Medications Current Medications Current Medications Medications (Trade) Dose Ordered Sig/Marshall Start Time Stop Time Status Last Admin Dose Admin Acetaminophen (Tylenol) 1,000 mg 1X ONCE 06/01/19 15:30 06/01/19 15:31 UNV Diphenhydramine HCl (Benadryl) 50 mg 1X ONCE 06/01/19 13:30 06/01/19 13:33 DC 06/01/19 13:30 50 MG Famotidine (Pepcid) 20 mg 1X ONCE 06/01/19 13:30 06/01/19 13:33 DC 06/01/19 13:30 20 MG Methylprednisolone Sodium Succinate (SOLU-Medrol 125MG VIAL) 125 mg 1X ONCE 06/01/19 13:30 06/01/19 13:33 DC 06/01/19 13:30 125 MG Allergies Allergies Allergies Coded Allergies Type Severity Reaction Last Updated Verified hydromorphone Allergy Severe 07/01/18 Yes fish derived Allergy Intermediate 11/07/14 Yes iodine Allergy Intermediate Hives 07/02/18 Yes nabumetone Allergy Intermediate 01/08/15 Yes tizanidine Allergy Intermediate 01/08/15 Yes Penicillins Adverse Reaction Intermediate 11/07/14 Yes Sulfa (Sulfonamide Antibiotics) Adverse Reaction Intermediate 11/07/14 Yes aspirin Adverse Reaction Intermediate 11/07/14 Yes latex Adverse Reaction Intermediate 11/07/14 Yes Physical Exam Physical Exam See above Constitutional: Well developed, well nourished, no acute distress, non-toxic appearance. [] HENT: Normocephalic, atraumatic, bilateral external ears normal, oropharynx moist, no oral exudates, nose normal. NO ANGIOEDEMA. Eyes: PERRLA, EOMI, conjunctiva normal, no discharge. [] Neck: Normal range of motion, no tenderness, supple, no stridor. [] Cardiovascular:Heart rate regular rhythm, no murmur [] Lungs & Thorax: Bilateral breath sounds clear to auscultation [] Abdomen: Bowel sounds normal, soft, no tenderness, no masses, no pulsatile masses. [] Skin: Warm, dry, MACULOPAPULAR RASH ON BOTH CHEEKS AREA. NO INDURATION. MACULOPAPULAR RASH ON RIGHT SIDE WAISTLINE AREA. NOT TENDER TO TOUCH, IT IS BLANCHABLE. NO WEEPING DRAINAGE. Back: No tenderness, no CVA tenderness. [] Extremities: No tenderness, no cyanosis, no clubbing, ROM intact, no edema. [] Neurologic: Alert and oriented X 3, normal motor function, normal sensory function, no focal deficits noted. [] Psychologic: Affect normal, judgement normal, mood normal. [] Current Patient Data Vital Signs Vital Signs Date Time Temp Pulse Resp B/P (MAP) Pulse Ox O2 Delivery O2 Flow Rate FiO2 06/01/19 14:08 93 18 133/77 (95) 97 Room Air 06/01/19 13:24 98.8 EKG EKG [] Radiology/Procedures Radiology/Procedures [] Course & Med Decision Making Course & Med Decision Making Pertinent Labs and Imaging studies reviewed. (See chart for details) Patient was found nonspecific rash on her face and her back area, it is not as herpetic or shingles like rash. She was given Benadryl and steroids in the ER, the rash improved. Patient denies any chest pain or any trouble breathing, denies any swelling in her throat or her lip. Patient will need to follow up with her family doctor for a referral to an ALLERGY doctor for further evaluation and treatment. Patient is amenable to plan of care. Dragon Disclaimer Dragon Disclaimer This electronic medical record was generated, in whole or in part, using a voice recognition dictation system. Departure Departure: Impression: Primary Impression: Rash and nonspecific skin eruption Disposition: 01 HOME, SELF-CARE Condition: STABLE Referrals: CARMINA BARRON MD (PCP) Please follow with your family doctor for outpatient referral to an allergy doctor for further evaluation. Patient Instructions: Rash Additional Instructions: Thank you for visiting our Emergency Department. We appreciate you trusting us with your care. If any additional problems come up don't hesitate to return to visit us. Please follow up with your primary care provider so they can plan additional care if needed and know about the problem that you had. If symptoms worsen come back to the Emergency Department. Any concerning symptoms that start such as chest pain, shortness of air, weakness or numbness on one side of the body, running high fevers or any other concerning symptoms return to the ER. Scripts Famotidine (PEPCID) 20 Mg Tablet 20 MG PO DAILY for rash for 7 Days, #7 TAB Prov: CARMINA OSORIO DO 06/01/19 Hydroxyzine Hcl (HYDROXYZINE HCL) 25 Mg Tablet 1 TAB PO TID for itching, rash, #30 TAB Prov: CARMINA OSORIO DO 06/01/19 Prednisone (PREDNISONE) 20 Mg Tablet 1 TAB PO DAILY for rash, #5 TAB Prov: CARMINA OSORIO DO 06/01/19 CARMINA OSORIO DO Jun 01, 2019 15:36
[2019-06-01 15:41] VITALS: BP 138/67
== END 2019-06-01 15:40 | disposition home or self-care (01) ==
LOC: ER 13:12
DX: R21 Rash and other nonspecific skin eruption (principal); M19.90 Unspecified osteoarthritis, unspecified site; I10 Essential (primary) hypertension; Z90.49 Acquired absence of other specified parts of digestive tract; Z90.710 Acquired absence of both cervix and uterus; Z91.013 Allergy to seafood; Z88.0 Allergy status to penicillin; Z88.2 Allergy status to sulfonamides; Z91.040 Latex allergy status; Z88.6 Allergy status to analgesic agent; Z88.8 Allergy status to other drugs, medicaments and biological substances; Z88.1 Allergy status to other antibiotic agents; Z88.5 Allergy status to narcotic agent
CPT/HCPCS: 96372; 99284; J1200; J2930

== ENCOUNTER → 2019-06-07 | Outpatient (CLI) | payer OTHER ==
[2019-06-01 15:41] VITALS: BP 138/67
[~2019-06-07] MED LIST changes: +FAMO-63 PO; +HYDR25TA PO
--- NOTE | 2019-06-07 18:17 | RAD ---
PROCEDURE: HIP RIGHT 2 VIEW, RIGHT FEMUR XRAY STUDY DATE: 06/07/2019 CLINICAL INDICATION / HISTORY: Right hip and leg pain. TECHNIQUE: Right femur 2 views. COMPARISON: None FINDINGS: The bone density appears normal. No fracture is identified. The soft tissues are unremarkable. IMPRESSION: No acute abnormality. PROCEDURE: HIP RIGHT 2 VIEW, RIGHT FEMUR XRAY STUDY DATE: 06/07/2019 CLINICAL INDICATION / HISTORY: Right hip and leg pain. TECHNIQUE: Three views of the right hip were obtained. COMPARISON: Right femur x-rays of the same day. FINDINGS: The osseous structures are normally mineralized. There is normal bony alignment present with the femoral heads well-seated within the acetabuli. There is no evidence of acute fracture or dislocation identified. The overlying soft tissues are grossly unremarkable. IMPRESSION: Unremarkable examination of the right hip. Electronically signed by: Isa Workman MD (06/07/2019 6:14 PM) [facility]
== END | disposition home or self-care (01) ==
LOC: RAD 12:15
PROVIDERS: ATTEND Family Medicine
DX: M25.551 Pain in right hip (principal); M79.651 Pain in right thigh
CPT/HCPCS: 73502; 73552

== ENCOUNTER → 2019-06-14 | Outpatient (CLI) | payer OTHER ==
[2019-06-01 15:41] VITALS: BP 138/67
--- NOTE | 2019-06-14 15:48 | RAD ---
KNEE LEFT 3V DATE: 06/14/2019 12:19 PM INDICATION: Pain COMPARISON: 01/28/2018 FINDINGS: No acute fracture. Severe degenerative changes in the medial compartment have significantly progressed from the prior exam. New medial translation of the femoral condyles relative to the tibial plateau. No knee joint effusion. IMPRESSION: Severe degenerative changes, significantly progressed from the prior exam. Electronically signed by: Francisco Bautista MD (06/14/2019 3:45 PM) [id number]
== END | disposition home or self-care (01) ==
LOC: RAD 11:32
PROVIDERS: ATTEND Family Medicine
DX: M17.12 Unilateral primary osteoarthritis, left knee (principal)
CPT/HCPCS: 73562

== ENCOUNTER → 2019-07-14 | Outpatient (CLI) | payer OTHER ==
[2019-07-14 12:59] LABS: BASO # 0.1 x10^3/uL (0.0-0.2); BASO % 1 % (0-3); EOS # 0.3 x10^3/uL (0.0-0.7); EOS % 3 % (0-3); HEMATOCRIT 42.2 % (36.0-47.0); HEMOGLOBIN 14.1 g/dL (12.0-15.5); LYMPH # 2.3 x10^3/uL (1.0-4.8); LYMPH % 26 % (24-48); MEAN CORPUSCULAR HEMOGLOBIN 30 pg (25-35); MEAN CORPUSCULAR HGB CONC 33 g/dL (31-37); MEAN CORPUSCULAR VOLUME 90 fL (79-100); MONO # 0.5 x10^3/uL (0.0-1.1); MONO % 5 % (0-9); NEUT # 5.8 x10^3uL (1.8-7.7); NEUT % 65 % (31-73); PLATELET COUNT 323 x10^3/uL (140-400); RED BLOOD COUNT 4.69 x10^6/uL (3.50-5.40); RED CELL DISTRIBUTION WIDTH 14.4 % (11.5-14.5); WHITE BLOOD COUNT 8.9 x10^3/uL (4.0-11.0)
[2019-07-14 13:22] LABS: ALBUMIN 3.5 g/dL (3.4-5.0); CALCIUM 8.7 mg/dL (8.5-10.1); CREATININE 0.8 mg/dL (0.6-1.0); GFR 72.7; POTASSIUM 4.4 mmol/L (3.5-5.1); TOTAL BILIRUBIN 0.4 mg/dL (0.2-1.0); TOTAL PROTEIN 7.1 g/dL (6.4-8.2)
[2019-07-14 14:46] LABS: BILIRUBIN,URINE NEG (NEG); CLARITY,URINE HAZY; COLOR,URINE YELLOW; GLUCOSE,URINE NEG (NEG)
[2019-07-14 14:47] LABS: BACTERIA,URINE 0 /HPF (0-FEW); NITRITE,URINE NEG (NEG); RBC,URINE OCC /HPF (0-2); SQUAMOUS EPITHELIAL CELL,UR MANY /LPF; UROBILINOGEN,URINE 0.2 mg/dL (0.2 mg/dL)
--- NOTE | 2019-07-14 14:56 | RAD ---
AP and Lateral Views of the Chest 07/14/2019 12:00 AM Indication: Cough Comparison: Chest radiograph December 13, 2018 Findings: There is no focal consolidation or infiltrate identified. The cardiomediastinal silhouette is within normal limits. There is no evidence of pneumothorax or pleural effusion. Healing right-sided rib fractures again noted. No acute osseous changes are seen. Impression: No evidence of acute cardiopulmonary process. Electronically signed by: Blaine Rhodes MD (07/14/2019 2:53 PM) [id number]
[2019-07-15 21:25] LABS: FREE T4 1.48 ng/dL (0.76-1.46)
[2019-07-15 21:26] LABS: THYROID STIM HORMONE (TSH) 2.068 uIU/mL (0.358-3.740)
== END | disposition home or self-care (01) ==
LOC: LAB 12:38
PROVIDERS: ATTEND Family Medicine
DX: S22.41XD Multiple fractures of ribs, right side, subsequent encounter for fracture with routine healing (principal); I89.0 Lymphedema, not elsewhere classified; F06.4 Anxiety disorder due to known physiological condition; R63.5 Abnormal weight gain; R60.0 Localized edema; R06.09 Other forms of dyspnea; X58.XXXD Exposure to other specified factors, subsequent encounter
CPT/HCPCS: 36415; 71046; 80053; 81001; 82550; 83880; 84439; 84443; 84484; 85025; 85379; 87086

== ENCOUNTER → 2019-09-12 | Outpatient (CLI) | payer OTHER ==
--- NOTE | 2019-09-12 11:57 | RAD ---
AP and Lateral Views of the Chest 09/12/2019 12:00 AM Indication: Cough Comparison: Chest radiograph 3.04.22 Findings: There is no focal consolidation or infiltrate identified. The cardiomediastinal silhouette is within normal limits. There is no evidence of pneumothorax or pleural effusion. No acute osseous abnormalities are identified. Impression: No evidence of acute cardiopulmonary process. Electronically signed by: Blaine Rhodes MD (09/12/2019 11:54 AM) [id number]
== END | disposition home or self-care (01) ==
LOC: LAB 11:23
PROVIDERS: ATTEND Family Medicine
DX: R05 Cough (principal)
CPT/HCPCS: 71046

== ENCOUNTER → 2019-11-21 | Outpatient (CLI) | payer OTHER ==
[~2019-11-21] MED LIST changes: +MULT-445 PO; -MULT1TAB52 PO
--- NOTE | 2019-11-21 14:09 | RAD ---
EXAM: LEFT KNEE, 3 VIEWS. HISTORY: Left knee pain. COMPARISON: None. FINDINGS: There is severe lateral subluxation of the tibia and moderate varus angulation. The intercondylar spines articulate with the lateral femoral condyle. There is effacement of the medial compartmental joint space. There is moderate osteophytosis laterally. Multiple loose bodies project posteriorly, possibly within the popliteus tendon sheath. There is no joint effusion. IMPRESSION: 1. Severe tricompartmental osteoarthritis with severe lateral subluxation of the tibia and moderate varus angulation. Correlate for instability. Electronically signed by: Angie Arnold MD (11/21/2019 2:06 PM) [id number]
== END | disposition home or self-care (01) ==
LOC: RAD 13:22
PROVIDERS: ATTEND Physician Assistant
DX: S83.192A Other subluxation of left knee, initial encounter (principal); M17.12 Unilateral primary osteoarthritis, left knee; M21.862 Other specified acquired deformities of left lower leg; X58.XXXA Exposure to other specified factors, initial encounter; Y93.89 Activity, other specified; Y92.89 Other specified places as the place of occurrence of the external cause; Y99.8 Other external cause status
CPT/HCPCS: 73562

== ENCOUNTER → 2019-12-19 | Outpatient (CLI) | payer OTHER ==
[2019-12-19 14:46] LABS: BASO # 0.1 x10^3/uL (0.0-0.2); BASO % 1 % (0-3); EOS # 0.3 x10^3/uL (0.0-0.7); EOS % 4 % (0-3); HEMATOCRIT 43.2 % (36.0-47.0); HEMOGLOBIN 14.5 g/dL (12.0-15.5); LYMPH % 22 % (24-48); MEAN CORPUSCULAR HEMOGLOBIN 30 pg (25-35); MEAN CORPUSCULAR HGB CONC 34 g/dL (31-37); MEAN CORPUSCULAR VOLUME 89 fL (79-100); MONO # 0.5 x10^3/uL (0.0-1.1); MONO % 5 % (0-9); NEUT # 6.3 x10^3uL (1.8-7.7); NEUT % 69 % (31-73); PLATELET COUNT 354 x10^3/uL (140-400); RED BLOOD COUNT 4.84 x10^6/uL (3.50-5.40); RED CELL DISTRIBUTION WIDTH 14.3 % (11.5-14.5); WHITE BLOOD COUNT 9.2 x10^3/uL (4.0-11.0)
[2019-12-19 14:56] LABS: BACTERIA,URINE FEW /HPF (0-FEW); BILIRUBIN,URINE NEG (NEG); CLARITY,URINE HAZY; COLOR,URINE YELLOW; GLUCOSE,URINE NEG (NEG); NITRITE,URINE NEG (NEG); SQUAMOUS EPITHELIAL CELL,UR MOD /LPF; UROBILINOGEN,URINE 0.2 mg/dL (0.2 mg/dL)
[2019-12-19 15:01] LABS: ALBUMIN 3.7 g/dL (3.4-5.0); ALBUMIN/GLOBULIN RATIO 0.9 (1.0-1.7); CALCIUM 9.2 mg/dL (8.5-10.1); GFR 56.2; POTASSIUM 4.5 mmol/L (3.5-5.1); TOTAL BILIRUBIN 0.5 mg/dL (0.2-1.0); TOTAL PROTEIN 7.6 g/dL (6.4-8.2)
[2019-12-20 07:09] LABS: HEMOGLOBIN A1C 5.7 % (4.8-5.6)
[2019-12-20 15:17] LABS: FREE T4 1.26 ng/dL (0.76-1.46); THYROID STIM HORMONE (TSH) 2.693 uIU/mL (0.358-3.740)
== END ==
LOC: LAB 13:57
PROVIDERS: ATTEND Family Medicine
DX: I10 Essential (primary) hypertension (principal); K21.9 Gastro-esophageal reflux disease without esophagitis; J20.8 Acute bronchitis due to other specified organisms; E03.9 Hypothyroidism, unspecified; G47.30 Sleep apnea, unspecified; E78.01 Familial hypercholesterolemia; M54.5 Low back pain; R35.1 Nocturia
CPT/HCPCS: 36415; 80053; 80061; 81001; 83036; 84439; 84443; 85025; 87086

== ENCOUNTER → 2019-12-21 | Outpatient (CLI) | payer OTHER ==
--- NOTE | 2019-12-21 17:17 | RAD ---
Study: CR ANKLE RIGHT 3V Indication: Right ankle pain after a fall. Comparison: None. Findings: No acute fracture is identified. No gross malalignment at the ankle joint noting the absence of weightbearing. Degenerative changes at the ankle joint are relatively mild. Apparent foci of mineralization adjacent to the lateral talar process do not appear acute. Pronounced plantarflexion of the talus with resultant malalignment across the talonavicular joint. Plantar calcaneal spur. The midfoot and forefoot osseous structures are not well evaluated on this exam. Impression: 1. No acute fracture seen at the ankle. 2. Marked plantarflexion of the talus in keeping with pes planus. Electronically signed by: MIESHA DAILEY MD (12/21/2019 5:14 PM) [id number]
== END | disposition home or self-care (01) ==
LOC: RAD 13:02
PROVIDERS: ATTEND Family Medicine
DX: M21.41 Flat foot [pes planus] (acquired), right foot (principal); M77.31 Calcaneal spur, right foot
CPT/HCPCS: 73610

== ENCOUNTER → 2020-03-08 | Outpatient (CLI) | payer OTHER ==
[~2020-03-08] MED LIST changes: -NABU500T PO; +NABU500T7 PO
--- NOTE | 2020-03-08 15:39 | RAD ---
EXAM: AP, oblique and lateral views right ankle DATE: 03/08/2020 12:00 AM INDICATION: Reason: RT ANKLE PAIN, S/P FALL / Spl. Instructions: / History: COMPARISON: 12/21/2019 FINDINGS/ IMPRESSION: No evidence of acute fracture or dislocation. Subtle lucency lateral talar dome likely osteochondral injury or degenerative change. Pes planus with vertical/equinus orientation of the talus. Midfoot degenerative changes are seen. Small plantar calcaneal enthesophyte. Electronically signed by: Len Rob MD (03/08/2020 3:36 PM) [id number]
== END ==
LOC: DXRAD 14:51
PROVIDERS: ATTEND Physician Assistant
DX: M19.071 Primary osteoarthritis, right ankle and foot (principal); M77.31 Calcaneal spur, right foot
CPT/HCPCS: 73610

== ENCOUNTER → 2020-05-08 | Outpatient (CLI) | payer OTHER ==
[~2020-05-08] MED LIST changes: +NABU500T11 PO; -NABU500T7 PO
--- NOTE | 2020-05-08 14:39 | RAD ---
EXAM: Left hand, 3 views; right shoulder, 4 views. HISTORY: Pain. COMPARISON: 03/26/2019. FINDINGS: Left hand: 3 views left hand are obtained. There is severe first carpometacarpal joint space narrowin g with subchondral sclerosis, spurring and bony remodeling. There are small chronic fragmented osteop hytes during the joint space. There is no acute fracture, dislocation or subluxation. Right shoulder: 4 views of the right shoulder obtained. There is marginal inferior humeral head spurr ing. There is widening of the acromioclavicular joint space which is [facility], allowing for differences in patient positioning and image projection. IMPRESSION: 1. Severe left first carpal metacarpal joint osteoarthritis with associated bony remodeling. 2. Mild right glenohumeral osteoarthritis and stable mild widening of the right acromioclavicular sandeep nt. Electronically signed by: Aarti Hernandez MD (05/08/2020 2:37 PM) [id number]
--- NOTE | 2020-05-08 14:39 | RAD ---
EXAM: Left hand, 3 views; right shoulder, 4 views. HISTORY: Pain. COMPARISON: 03/26/2019. FINDINGS: Left hand: 3 views left hand are obtained. There is severe first carpometacarpal joint space narrowin g with subchondral sclerosis, spurring and bony remodeling. There are small chronic fragmented osteop hytes during the joint space. There is no acute fracture, dislocation or subluxation. Right shoulder: 4 views of the right shoulder obtained. There is marginal inferior humeral head spurr ing. There is widening of the acromioclavicular joint space which is similar compared to [facility], allowing for differences in patient positioning and image projection. IMPRESSION: 1. Severe left first carpal metacarpal joint osteoarthritis with associated bony remodeling. 2. Mild right glenohumeral osteoarthritis and stable mild widening of the right acromioclavicular sandeep nt. Electronically signed by: Aarti Hernandez MD (05/08/2020 2:37 PM) [id number]
== END ==
LOC: DXRAD 14:05
PROVIDERS: ATTEND Physician Assistant
DX: M19.011 Primary osteoarthritis, right shoulder (principal); M18.12 Unilateral primary osteoarthritis of first carpometacarpal joint, left hand; M25.742 Osteophyte, left hand; M25.741 Osteophyte, right hand; G56.00 Carpal tunnel syndrome, unspecified upper limb
CPT/HCPCS: 73030; 73130

== ENCOUNTER → 2020-08-01 | Outpatient (CLI) | payer OTHER ==
[~2020-08-01] MED LIST changes: -NABU500T11 PO; +NABU500T7 PO
[2020-08-01 12:46] LABS: ALBUMIN 3.5 g/dL (3.4-5.0); DIRECT BILIRUBIN 0.1 mg/dL (0.0-0.2); TOTAL BILIRUBIN 0.4 mg/dL (0.2-1.0); TOTAL PROTEIN 7.4 g/dL (6.4-8.2)
== END ==
LOC: LAB 10:53
PROVIDERS: ATTEND Podiatrist Foot & Ankle Surgery
DX: B35.1 Tinea unguium (principal)
CPT/HCPCS: 36415; 80076

== ENCOUNTER → 2020-08-01 | Outpatient (CLI) | payer OTHER ==
[2020-08-01 12:42] LABS: BARBITURATES NEG (NEG); BENZODIAZEPINES POS (NEG); CANNABINOIDS NEG (NEG); COCAINE NEG (NEG); METHADONE NEG (NEG); OPIATES NEG (NEG); PHENCYCLIDINE NEG (NEG)
[2020-08-01 12:46] LABS: ALBUMIN 3.5 g/dL (3.4-5.0); ALBUMIN/GLOBULIN RATIO 0.9 (1.0-1.7); CALCIUM 9.3 mg/dL (8.5-10.1); CREATININE 0.8 mg/dL (0.6-1.0); GFR 72.4; POTASSIUM 4.3 mmol/L (3.5-5.1); TOTAL BILIRUBIN 0.5 mg/dL (0.2-1.0); TOTAL PROTEIN 7.5 g/dL (6.4-8.2)
[2020-08-01 12:50] LABS: AMPHETAMINE/METHAMPHETAMINE POS (NEG)
[2020-08-01 13:50] LABS: BASO # 0.1 x10^3/uL (0.0-0.2); BASO % 1 % (0-3); EOS # 0.3 x10^3/uL (0.0-0.7); EOS % 3 % (0-3); HEMATOCRIT 42.4 % (36.0-47.0); HEMOGLOBIN 14.2 g/dL (12.0-15.5); LYMPH # 2.7 x10^3/uL (1.0-4.8); LYMPH % 31 % (24-48); MEAN CORPUSCULAR HEMOGLOBIN 31 pg (25-35); MEAN CORPUSCULAR HGB CONC 34 g/dL (31-37); MEAN CORPUSCULAR VOLUME 91 fL (79-100); MONO # 0.5 x10^3/uL (0.0-1.1); MONO % 5 % (0-9); NEUT # 5.2 x10^3uL (1.8-7.7); NEUT % 60 % (31-73); PLATELET COUNT 348 x10^3/uL (140-400); RED BLOOD COUNT 4.64 x10^6/uL (3.50-5.40); RED CELL DISTRIBUTION WIDTH 13.6 % (11.5-14.5); WHITE BLOOD COUNT 8.7 x10^3/uL (4.0-11.0)
[2020-08-01 13:59] LABS: BACTERIA,URINE FEW /HPF (0-FEW); BILIRUBIN,URINE NEG (NEG); CLARITY,URINE CLEAR; COLOR,URINE YELLOW; GLUCOSE,URINE NEG (NEG); NITRITE,URINE NEG (NEG); SQUAMOUS EPITHELIAL CELL,UR MOD /LPF; UROBILINOGEN,URINE 0.2 mg/dL (0.2 mg/dL)
[2020-08-02 19:37] LABS: FREE T4 1.22 ng/dL (0.76-1.46); THYROID STIM HORMONE (TSH) 2.111 uIU/mL (0.358-3.740)
== END ==
LOC: LAB 10:50
PROVIDERS: ATTEND Family Medicine
DX: J45.991 Cough variant asthma (principal); E03.9 Hypothyroidism, unspecified; J20.8 Acute bronchitis due to other specified organisms; I10 Essential (primary) hypertension; E55.9 Vitamin D deficiency, unspecified; E78.01 Familial hypercholesterolemia; F06.4 Anxiety disorder due to known physiological condition; F41.1 Generalized anxiety disorder
CPT/HCPCS: 80053; 80061; 80307; 81001; 82306; 82652; 83036; 84439; 84443; 85025; 87086

== ENCOUNTER → 2020-11-22 | Outpatient (CLI) | payer OTHER ==
[~2020-11-22] MED LIST changes: +NABU500T11 PO; -NABU500T7 PO
--- NOTE | 2020-11-22 17:29 | RAD ---
EXAMINATION: XR SHOULDER_LEFT 2+ VIEWS CLINICAL HISTORY: Left shoulder pain TECHNIQUE: XR SHOULDER_LEFT 2+ VIEWS Number of Images/Views: 4 COMPARISON: None FINDINGS: Postoperative changes related to rotator cuff repair and distal clavicle resection. Glenohumeral join t alignment maintained. No acute fracture. Acromiohumeral interval maintained. IMPRESSION: No acute osseous abnormality. Electronically signed by: Dalton Wesley DO (11/22/2020 5:27 PM) JOSE LUIS
--- NOTE | 2020-11-22 17:32 | RAD ---
EXAMINATION: XR KNEE_AP BILAT STANDING, XR KNEE_LT 1-2 VIEWS CLINICAL HISTORY: Left knee pain TECHNIQUE: XR KNEE_AP BILAT STANDING, XR KNEE_LT 1-2 VIEWS Number of Images/Views: 4 COMPARISON: None FINDINGS: Advanced degenerative changes in the left knee with moderate lateral subluxation of the proximal tibi a relative to the distal femur with the lateral femoral condyle positioned over the tibial spines and associated genu varus. No acute fracture. Calcified posterior joint body. No joint effusion. Limited evaluation of the right knee demonstrates degenerative changes greatest in the medial compart ment. IMPRESSION: Advanced degenerative changes in the left knee as described. Electronically signed by: Dalton Wesley DO (11/22/2020 5:30 PM) JOSE LUIS
== END ==
LOC: RAD 14:02
PROVIDERS: ATTEND Physician Assistant
DX: S83.142A Lateral subluxation of proximal end of tibia, left knee, initial encounter (principal); M17.12 Unilateral primary osteoarthritis, left knee; X58.XXXA Exposure to other specified factors, initial encounter; Y93.89 Activity, other specified; Y92.89 Other specified places as the place of occurrence of the external cause; Y99.8 Other external cause status
CPT/HCPCS: 73030; 73560; 73565

== ENCOUNTER → 2020-12-28 | Outpatient (CLI) | payer OTHER ==
[2020-12-28 16:46] LABS: BASO # 0.1 x10^3/uL (0.0-0.2); BASO % 1 % (0-3); EOS # 0.3 x10^3/uL (0.0-0.7); EOS % 3 % (0-3); HEMATOCRIT 42.4 % (36.0-47.0); HEMOGLOBIN 14.5 g/dL (12.0-15.5); LYMPH # 2.5 x10^3/uL (1.0-4.8); LYMPH % 23 % (24-48); MEAN CORPUSCULAR HEMOGLOBIN 30 pg (25-35); MEAN CORPUSCULAR HGB CONC 34 g/dL (31-37); MEAN CORPUSCULAR VOLUME 89 fL (79-100); MONO # 0.6 x10^3/uL (0.0-1.1); MONO % 5 % (0-9); NEUT # 7.6 x10^3uL (1.8-7.7); NEUT % 69 % (31-73); PLATELET COUNT 407 x10^3/uL (140-400); RED BLOOD COUNT 4.78 x10^6/uL (3.50-5.40); RED CELL DISTRIBUTION WIDTH 13.3 % (11.5-14.5)
[2020-12-28 16:56] LABS: ALBUMIN 3.5 g/dL (3.4-5.0); ALBUMIN/GLOBULIN RATIO 0.9 (1.0-1.7); CALCIUM 9.1 mg/dL (8.5-10.1); CREATININE 0.7 mg/dL (0.6-1.0); GFR 84.5; POTASSIUM 4.6 mmol/L (3.5-5.1); TOTAL BILIRUBIN 0.4 mg/dL (0.2-1.0); TOTAL PROTEIN 7.3 g/dL (6.4-8.2)
[2020-12-29 12:16] LABS: THYROID STIM HORMONE (TSH) 2.638 uIU/mL (0.358-3.740)
[2020-12-30 07:08] LABS: HEMOGLOBIN A1C 5.7 % (4.8-5.6)
== END ==
LOC: LAB 16:03
PROVIDERS: ATTEND Family Medicine
DX: F06.4 Anxiety disorder due to known physiological condition (principal); K21.9 Gastro-esophageal reflux disease without esophagitis; I10 Essential (primary) hypertension; J45.998 Other asthma; R73.9 Hyperglycemia, unspecified; E03.9 Hypothyroidism, unspecified
CPT/HCPCS: 36415; 80053; 80061; 83036; 84443; 85025

== ENCOUNTER 2021-01-17 13:30 | Inpatient (IN) | payer OTHER ==
[~2021-01-17] VITALS: Ht 162.6 cm; Wt 129.9 kg
--- NOTE | 2021-01-17 14:39 | RAD ---
EXAM: Left knee, 3 views. HISTORY: Pain. COMPARISON: 11/22/2020. FINDINGS: 3 views of the left knee are obtained. There is severe medial compartment joint space narro wing with degenerative subchondral sclerosis, subchondral cyst formation and marginal spurring. There is mild lateral compartment spurring. There is slight genu varus. There is a moderate joint effusion . There are posterior knee joint loose bodies. IMPRESSION: Severe medial compartment osteoarthritis of the left knee with genu varus, moderate joint effusion and joint loose bodies. Electronically signed by: Aarti Hernandez MD (01/17/2021 2:37 PM) [id number]
[2021-01-17] MEDS ORDERED: oxyCODONE IR 5 MG TABLET PO ONE (15:30)
[2021-01-17] MEDS ORDERED: MORPHINE SULFATE 4 MG/ML DISP.SYRIN. IVP PRN (15:30)
--- NOTE | 2021-01-17 15:32 | PHYS DOC ---
Past History Past Medical History: Arthritis, Hypertension Additional Past Medical Histor: Knee dislocation Past Surgical History: Cholecystectomy, Hysterectomy Alcohol Use: None Drug Use: None General Adult EDM: Chief Complaint: KNEE INJURY HPI: HPI: Patient is a 65 year old female with history of obesity and recurrent left knee subluxations who presents with left knee pain. She fell getting out of her car yesterday and felt like her knee twisted. She has been unable to walk on it since. She lives alone, and does not have assistance. She can typically get around with a walker, but has been unable to since her fall. She denies headache or any other traumatic injuries. She is followed with Dr. Chou of orthopedic surgery, and they have been deferring her surgery until she can lose weight. Current BMI is 50. Review of Systems: Review of Systems: Constitutional: Denies fever or chills Eyes: Denies change in visual acuity HENT: Denies nasal congestion or sore throat Respiratory: Denies cough or shortness of breath Cardiovascular: Denies chest pain or edema GI: Denies abdominal pain, nausea, vomiting, bloody stools or diarrhea : Denies dysuria Musculoskeletal: Left knee pain Integument: Denies rash Neurologic: Denies headache, focal weakness or sensory changes Endocrine: Denies polyuria or polydipsia Lymphatic: Denies swollen glands Psychiatric: Denies depression or anxiety Current Medications: Current Meds: Current Medications Medications (Trade) Dose Ordered Sig/Marshall Start Time Stop Time Status Last Admin Dose Admin Oxycodone HCl (Roxicodone) 5 mg 1X ONCE 01/17/21 15:30 01/17/21 15:31 Allergies: Allergies: Allergies Coded Allergies Type Severity Reaction Last Updated Verified hydromorphone Allergy Severe 01/17/21 Yes fish derived Allergy Intermediate 01/17/21 Yes iodine Allergy Intermediate Hives 01/17/21 Yes nabumetone Allergy Intermediate 01/17/21 Yes tizanidine Allergy Intermediate 01/17/21 Yes Penicillins Adverse Reaction Intermediate 01/17/21 Yes Sulfa (Sulfonamide Antibiotics) Adverse Reaction Intermediate 01/17/21 Yes aspirin Adverse Reaction Intermediate 01/17/21 Yes latex Adverse Reaction Intermediate 01/17/21 Yes Physical Exam: PE: Constitutional: Well developed, well nourished, no acute distress, non-toxic appearance. [] HENT: Normocephalic, atraumatic, bilateral external ears normal, oropharynx moist, no oral exudates, nose normal. [] Eyes: PERRLA, EOMI, conjunctiva normal, no discharge. [] Neck: Normal range of motion, no tenderness, supple, no stridor. [] Cardiovascular:Heart rate regular rhythm, no murmur [] Lungs & Thorax: Bilateral breath sounds clear to auscultation [] Abdomen: Bowel sounds normal, soft, no tenderness, no masses, no pulsatile masses. [] Skin: Warm, dry, no erythema, no rash. [] Back: No tenderness, no CVA tenderness. [] Extremities: Left knee with joint line tenderness. Pain with even slight range of motion limited my ability to examine the knee. Distal pulses 2+ DP and PT. Foot is warm well perfused with brisk cap refill. [] Neurologic: Alert and oriented X 3, normal motor function, normal sensory functi on, no focal deficits noted. [] Psychologic: Affect normal, judgement normal, mood normal. [] Current Patient Data: Vital Signs: Vital Signs Date Time Temp Pulse Resp B/P (MAP) Pulse Ox O2 Delivery O2 Flow Rate FiO2 01/17/21 13:40 97.8 88 20 122/80 (94 94 EKG: EKG: [] Radiology/Procedures: Radiology/Procedures: [] Impressions: [place] [address] IMAGING REPORT Signed PATIENT: TANK DANG ACCOUNT: [id number] : 1955 LOCATION: ER AGE: 65 SEX: F EXAM STATUS: REG ER ORD. PHYSICIAN: MIGEL MEMBRENO MD REASON: knee pain, states hx of 'dislocations' PROCEDURE: KNEE LEFT 3V EXAM: Left knee, 3 views. HISTORY: Pain. COMPARISON: 11/22/2020. FINDINGS: 3 views of the left knee are obtained. There is severe medial compartment joint space narrowing with degenerative subchondral sclerosis, subchondral cyst formation and marginal spurring. There is mild lateral compartment spurring. There is slight genu varus. There is a moderate joint effusion. There are posterior knee joint loose bodies. IMPRESSION: Severe medial compartment osteoarthritis of the left knee with genu varus, moderate joint effusion and joint loose bodies. Electronically signed by: Aarti Colby MD (01/17/2021 2:37 PM) [id number] DICTATED AND SIGNED BY: AARTI COLBY MD DATE: 01/17/21 1435 CC: MIGEL MEMBRENO MD; CARMINA BARRON MD ~MTH0 0 Heart Score: C/O Chest Pain: No Risk Factors: Risk Factors: DM, Current or recent (<one month) smoker, HTN, HLP, family history of CAD, obesity. Risk Scores: Score 0 - 3: 2.5% MACE over next 6 weeks - Discharge Home Score 4 - 6: 20.3% MACE over next 6 weeks - Admit for Clinical Observation Score 7 - 10: 72.7% MACE over next 6 weeks - Early Invasive Strategies Course & Med Decision Making: Course & Med Decision Making Pertinent Labs and Imaging studies reviewed. (See chart for details) Patient is 65-year-old female who is overweight and has a history of recurrent left knee subluxations who presents with left knee pain after a presumed recurrent subluxation yesterday. She is unable to ambulate at this time. She has brisk cap refill and good distal pulses. She is neurovascular intact at this time. X-ray of the knee does not show any fracture or malalignment at this time. Discussed with Dr. Jason, orthopedist at [facility]. He states that her case should continue to be managed as an outpatient from an orthopedics perspective. She will clearly require admission given her inability to ambulate. Admitted to her PCP, Dr. Barron, at [facility]. [facility] Disclaimer: Kurt Disclaimer: This electronic medical record was generated, in whole or in part, using a voice recognition dictation system. Departure Departure: Impression: Primary Impression: Subluxation of left knee Additional Impression: Inability to walk Disposition: ADMITTED INPATIENT Admitting Physician: Carmina Barron Condition: STABLE Referrals: CARMINA BARRON MD (PCP) MIGEL MEMBRENO MD Jan 17, 2021 15:32
[2021-01-17 18:06] VITALS: BP 111/65
[2021-01-17] MEDS ORDERED: ONDANSETRON ODT 4 MG TAB.RAPDIS PO PRN (18:30)
[2021-01-17] MEDS ORDERED: traMADol 50 MG TABLET PO PRN (18:30)
--- NOTE | 2021-01-17 18:43 | NUR ---
ADMISSION Pt admitted to [place] [address] Barrow for L knee subluxation. Admission complete, medication list copied from patient. Order obtained from Dr. Barrow. Pt resting comfortably in bed at this time with VSS and GCS 15. Will continue to monitor. RUBIO, RN
[2021-01-17] MEDS: IPRATRPIUM/ALBUTEROL 0.5/2.5MG 3 ML NEBU. NEB SCH (19:14)
[2021-01-17] MEDS ORDERED: TRAZ150T49 PO (19:21)
[2021-01-17] MEDS ORDERED: MONT10TA20 PO (19:28)
[2021-01-17] MEDS ORDERED: PROG100C10 PO (19:28)
[2021-01-17] MEDS ORDERED: PHEN37.59 PO (19:28)
[2021-01-17] MEDS ORDERED: THYR30TA PO (19:28)
[2021-01-17] MEDS ORDERED: FLUC100T4 PO (19:28)
[2021-01-17] MEDS ORDERED: BENZ200C47 PO (19:28)
[2021-01-17] MEDS ORDERED: QUET50TA3 PO (19:28)
[2021-01-17 19:31] VITALS: BP 114/65
[2021-01-17] MEDS ORDERED: CYCL-331 PO (19:46)
[2021-01-17] MEDS ORDERED: TRIA1TAB2 PO (19:46)
[2021-01-17] MEDS ORDERED: CYCL1DRO OP (19:46)
[2021-01-17] MEDS ORDERED: DOCU-109 PO (19:46)
[2021-01-17] MEDS ORDERED: LANS30CA PO (19:46)
[2021-01-17] MEDS ORDERED: DICL75TA PO (19:46)
[2021-01-17] MEDS ORDERED: FLUC100T7 PO (19:51)
[2021-01-17] MEDS ORDERED: HYDR-2769 PO (19:54)
[2021-01-17] MEDS ORDERED: NON FORMULARY ITEM (Albuterol Sulfate (Albuterol Sulfate Neb Soln) 1 VIAL) NEB PRN (20:30)
[2021-01-17] MEDS ORDERED: ALBUTEROL SULFATE 2.5 MG/3 ML NEBU. IH PRN (21:00)
[2021-01-17] MEDS ORDERED: ALBUTEROL SULFATE 2.5 MG/3 ML NEBU. IH SCH (21:00)
[2021-01-17] MEDS ORDERED: NON FORMULARY ITEM (Budesonide/Formoterol Fumarate (Symbicort 160-4.5 Mcg Inhaler) 2 PUFF) IN SCH (21:00)
[2021-01-17] MEDS: CYCLOBENZAPRINE 10 MG TABLET. PO SCH (21:11)
[2021-01-17] MEDS: DICLOFENAC SODIUM 25 MG TABLET.DR PO SCH (21:12)
[2021-01-17] MEDS: QUEtiapine 50 MG TABLET. PO SCH (21:12)
[2021-01-17] MEDS: DICLOFENAC SODIUM 1% TOPICAL GEL 100GM TUBE. TP SCH (21:12)
[2021-01-17] MEDS: FLUCONAZOLE 100 MG TABLET. PO SCH (21:12)
[2021-01-17] MEDS: ALPRAZolam 0.5 MG TABLET PO SCH (21:12)
[2021-01-17] MEDS: traZODone 150 MG TABLET. PO SCH (21:12)
[2021-01-17 23:23] VITALS: BP 102/72
[2021-01-18] MEDS ORDERED: BUDESONIDE 0.5 MG/2 ML NEBU ONE (04:55)
[2021-01-18] MEDS: IPRATRPIUM/ALBUTEROL 0.5/2.5MG 3 ML NEBU. NEB SCH ×4 (04:57→21:21)
[2021-01-18] MEDS: BUDESONIDE 0.5 MG/2 ML NEBU NEB SCH ×2 (04:58→21:21)
[2021-01-18] MEDS: HYDROcodone/APAP 5/325MG 1 TAB TABLET PO PRN ×3 (05:24→20:26)
[2021-01-18 05:41] VITALS: BP 97/67
[2021-01-18] MEDS: CYCLOBENZAPRINE 10 MG TABLET. PO SCH ×3 (08:12→20:25)
[2021-01-18] MEDS: predniSONE 10 MG TABLET. PO SCH (08:12)
[2021-01-18] MEDS: ALPRAZolam 0.5 MG TABLET PO SCH ×3 (08:13→20:26)
[2021-01-18] MEDS: MONTELUKAST 10 MG TABLET. PO SCH (08:13)
[2021-01-18] MEDS: FLUCONAZOLE 100 MG TABLET. PO SCH (08:13)
[2021-01-18] MEDS: DICLOFENAC SODIUM 1% TOPICAL GEL 100GM TUBE. TP SCH ×4 (08:13→20:26)
[2021-01-18] MEDS: DICLOFENAC SODIUM 25 MG TABLET.DR PO SCH ×3 (08:15→20:29)
[2021-01-18 09:34] LABS: BASO # 0.1 x10^3/uL (0.0-0.2); BASO % 1 % (0-3); EOS # 0.3 x10^3/uL (0.0-0.7); EOS % 4 % (0-3); HEMATOCRIT 40.1 % (36.0-47.0); HEMOGLOBIN 13.5 g/dL (12.0-15.5); LYMPH # 1.9 x10^3/uL (1.0-4.8); LYMPH % 24 % (24-48); MEAN CORPUSCULAR HEMOGLOBIN 30 pg (25-35); MEAN CORPUSCULAR HGB CONC 34 g/dL (31-37); MEAN CORPUSCULAR VOLUME 89 fL (79-100); MONO # 0.5 x10^3/uL (0.0-1.1); MONO % 6 % (0-9); NEUT # 5.3 x10^3uL (1.8-7.7); NEUT % 65 % (31-73); PLATELET COUNT 417 x10^3/uL (140-400); RED BLOOD COUNT 4.51 x10^6/uL (3.50-5.40); RED CELL DISTRIBUTION WIDTH 13.7 % (11.5-14.5); WHITE BLOOD COUNT 8.2 x10^3/uL (4.0-11.0)
[2021-01-18 09:47] LABS: C REACTIVE PROTEIN 61.5 mg/L (0-3.3); CALCIUM 9.1 mg/dL (8.5-10.1); CREATININE 0.6 mg/dL (0.6-1.0); POTASSIUM 4.2 mmol/L (3.5-5.1)
[2021-01-18 11:44] VITALS: BP 122/85
--- NOTE | 2021-01-18 11:45 | HP ---
ADMIT DATE: 01/17/2021 HISTORY OF PRESENT ILLNESS: A 65-year-old female who came in through the Emergency Room. The patient was no longer able to take care of herself. Her left knee had subluxation and was unable to bear weight on it at all without collapsing. The pain was 10/10. The patient was admitted because she was unable to take care of herself and had recent falls on this. She denies any headache or other trauma to the musculoskeletal system, but because of her extreme pain and her inability to mobilize, the patient was admitted for further evaluation and treatment, pain management, consult with PT, OT. PAST MEDICAL HISTORY: Tonsillectomy, adenoidectomy, hypercholesterolemia, asthma, sleep apnea, morbid obesity, BMI greater than 50, cholecystectomy, hysterectomy, left knee subluxation, shoulders, back pain, psychiatric problem, panic disorder, depression, anxiety, job loss. Pneumococcal vaccination and COVID vaccinations are up to date. PAST SURGICAL HISTORY: Rotator cuff, cholecystectomy, hernia surgeries x2. FAMILY HISTORY: Positive for stroke. ALLERGIES: PENICILLIN, SULFA, ASPIRIN, FISH DERIVED, HYDROMORPHONE, IODINE, LATEX, MORPHINE, , TIZANIDINE. SOCIAL HISTORY: Denies smoking, alcohol or drug use. CODE STATUS: Full code. REVIEW OF SYSTEMS: The patient denies any headaches, visual change, blurred vision, double vision. Denies chest pain, shortness of breath. Denies abdominal pain. Does have pain in her left hip radiating down to her knee, radiating pain up to the left hip, and marked genu vulgaris of the left knee. Pulses noted distally. Swelling, tenderness to the left knee as noted. PHYSICAL EXAMINATION: GENERAL: This is a pleasant white female. VITAL SIGNS: Blood pressure 122/80, respiratory 20, pulse 90, afebrile. HEENT: The patient's head was atraumatic, normocephalic. Eyes: PERRLA without jaundice. The mouth and throat were normal. NECK: Supple. LUNGS: Diminished, but clear. CARDIOVASCULAR: Regular, sinus rhythm. ABDOMEN: Soft, protuberant, nontender. No rebound or guarding. Positive bowel sounds. No hepatosplenomegaly noted. EXTREMITIES: No clubbing or cyanosis. The left knee is markedly swollen, marked tenderness, genu vulgaris there, marked tenderness noted with swelling, marked laxity to the joint, equivocal drawer sign. Pulses noted distally. Right knee basically shows degenerative changes, but stable. NEUROLOGIC: Alert and oriented. Speech fluent, spontaneous, appropriate. Cranial nerves II-XII grossly intact. LABORATORY DATA: White count 8.7, hemoglobin 13, hematocrit 40, , platelets 417. A1c 5.7. Iron, low. We will go ahead and continue to monitor there. X-ray shows severe medial compartment osteoarthritis of the left knee with genu varus and moderate joint effusion, joint loose bodies noted. IMPRESSION: Intractable pain, genu varus, morbid obesity. PLAN: Try to control pain management, PT, OT. Make further evaluation on her as indicated. RUDI/WILFREDO/MICHELA DR: RUDI/christiana TID: [id number]
[2021-01-18 16:05] VITALS: BP 121/81
[2021-01-18 19:37] VITALS: BP 125/85
[2021-01-18] MEDS: traZODone 150 MG TABLET. PO SCH (20:25)
[2021-01-18] MEDS: QUEtiapine 50 MG TABLET. PO SCH (20:26)
[2021-01-19] MEDS: HYDROcodone/APAP 5/325MG 1 TAB TABLET PO PRN ×2 (01:53→21:41)
[2021-01-19 05:20] VITALS: BP 126/82
[2021-01-19] MEDS: IPRATRPIUM/ALBUTEROL 0.5/2.5MG 3 ML NEBU. NEB SCH ×4 (05:43→20:00)
[2021-01-19] MEDS: MONTELUKAST 10 MG TABLET. PO SCH (07:51)
[2021-01-19] MEDS: ALPRAZolam 0.5 MG TABLET PO SCH ×3 (07:52→21:41)
[2021-01-19] MEDS: CYCLOBENZAPRINE 10 MG TABLET. PO SCH ×3 (07:52→21:40)
[2021-01-19] MEDS: DICLOFENAC SODIUM 25 MG TABLET.DR PO SCH ×3 (07:52→21:40)
[2021-01-19] MEDS: predniSONE 10 MG TABLET. PO SCH (07:53)
[2021-01-19] MEDS: DICLOFENAC SODIUM 1% TOPICAL GEL 100GM TUBE. TP SCH ×4 (07:56→21:00)
[2021-01-19 11:37] VITALS: BP 133/83
[2021-01-19] MEDS: BUDESONIDE 0.5 MG/2 ML NEBU NEB SCH ×2 (11:39→20:00)
[2021-01-19 16:06] VITALS: BP 139/93
--- NOTE | 2021-01-19 16:37 | NUR ---
PT STILL EXPERIENCING CHRONIC PAIN IN HER LEGS. PT REQUESTED PAIN MEDICINE (FENTANYL) ONCE TODAY. PT MANAGED HER PAIN OTHERWISE WITH VOLTAREN GEL AND PILLS. PT USED THE BEDSIDE COMMODE TODAY AND HAD STAFF STANDBY ASSIST.
[2021-01-19 20:29] VITALS: BP 114/75
--- NOTE | 2021-01-19 21:12 | PN ---
DATE: 01/19/2021 SUBJECTIVE: This 65-year-old female in with severe intractable pain of the left knee. The patient unable to mobilize, talked to orthopedics and try to get her with physical and occupational therapy. Continue pain management. OBJECTIVE: VITAL SIGNS: Blood pressure 133/83, respiratory rate 20, pulse 90, afebrile, 95 on room air. GENERAL: The patient is alert and oriented. Pain about 7-8/10, improved. The patient has marked swelling and tenderness to the leg. He has a chronic cough. LUNGS: Diminished throughout, poor movement of air. Chest x-ray will be obtained. Otherwise, she is resting comfortably with pain medication. C-reactive protein is 61.5, otherwise stable there. IMPRESSION AND PLAN: Intractable pain, bronchospasm. Continue with PT, OT and make further evaluation on her as indicated. TALIA DR: Ela TID: [id number]
[2021-01-19] MEDS: traZODone 150 MG TABLET. PO SCH (21:40)
[2021-01-19] MEDS: QUEtiapine 50 MG TABLET. PO SCH (21:40)
[2021-01-20] MEDS: IPRATRPIUM/ALBUTEROL 0.5/2.5MG 3 ML NEBU. NEB SCH ×4 (05:05→20:23)
[2021-01-20] MEDS: BUDESONIDE 0.5 MG/2 ML NEBU NEB SCH ×2 (05:05→20:23)
[2021-01-20] MEDS: HYDROcodone/APAP 5/325MG 1 TAB TABLET PO PRN ×2 (05:34→16:02)
[2021-01-20 05:49] VITALS: BP 129/82
[2021-01-20] MEDS: predniSONE 10 MG TABLET. PO SCH (08:04)
[2021-01-20] MEDS: ALPRAZolam 0.5 MG TABLET PO SCH ×3 (08:04→20:24)
[2021-01-20] MEDS: CYCLOBENZAPRINE 10 MG TABLET. PO SCH ×3 (08:04→20:24)
[2021-01-20] MEDS: DICLOFENAC SODIUM 25 MG TABLET.DR PO SCH ×3 (08:04→20:24)
[2021-01-20] MEDS: MONTELUKAST 10 MG TABLET. PO SCH (08:04)
[2021-01-20] MEDS: DICLOFENAC SODIUM 1% TOPICAL GEL 100GM TUBE. TP SCH ×4 (08:05→21:00)
--- NOTE | 2021-01-20 08:32 | RAD ---
XR CHEST 1V History: Shortness of breath. Comparison: 09/12/2019. CT chest 09/10/2018. Technique: AP radiograph of the chest. Findings: The lungs are adequately and symmetrically inflated. No airspace consolidation, pleural effusion or p neumothorax. The cardiomediastinal silhouette and pulmonary vasculature are within normal limits. Chr onic fracture deformities posterior right sixth and seventh ribs. No acute osseous abnormality. Soft tissues are unremarkable. Impression: 1. No acute cardiopulmonary process. Electronically signed by: Estuardo Johnson MD (01/20/2021 8:30 AM) [id number]
[2021-01-20 15:36] VITALS: BP 122/74
--- NOTE | 2021-01-20 16:26 | NUR ---
PT REQUESTED A LORTAB ONCE TODAY FOR HER CHRONIC LEG PAIN. PT RECEIVED HER BREATHING TREATMENTS AND TOOK HERSELF TO THE BEDSIDE COMMODE TODAY. PT HAD A BOWEL MOVEMENT TODAY. PT HAD NO OTHER CHANGES TODAY.
[2021-01-20] MEDS: QUEtiapine 50 MG TABLET. PO SCH (20:24)
[2021-01-20] MEDS: traZODone 150 MG TABLET. PO SCH (20:24)
[2021-01-20 20:39] VITALS: BP 109/67
--- NOTE | 2021-01-20 21:29 | PN ---
SUBJECTIVE: A 65-year-old female with inability to mobilize with intractable pain in the left knee. The patient making slow, but steady progress. Blood pressure 122/74, respiration 18, pulse 93 and afebrile. Room air only 90%. The patient is receiving physical and occupational therapy. Chest x-ray was unremarkable. The patient is baseline only at 90%. OBJECTIVE: GENERAL: The patient is alert and oriented. LUNGS: Diminished, poor movement of air. CARDIOVASCULAR: Regular sinus rhythm. EXTREMITIES: Left knee still swollen, hot, warm to touch. CRP markedly elevated. IMPRESSION: 1. Severe inflammatory arthritis of the left knee and inability to walk. 2. Intractable pain. 3. Borderline respiratory distress. 4. Morbid obesity. PLAN: Continue to work the patient up with physical and occupational therapy and possible placement in the a.m. for rehab. BILLY DR: Ela TID: [id number]
[2021-01-21] MEDS: IPRATRPIUM/ALBUTEROL 0.5/2.5MG 3 ML NEBU. NEB SCH ×2 (05:12→09:46)
[2021-01-21 06:30] VITALS: BP 106/70
[2021-01-21] MEDS: DICLOFENAC SODIUM 1% TOPICAL GEL 100GM TUBE. TP SCH ×2 (09:00→13:00)
[2021-01-21] MEDS: CYCLOBENZAPRINE 10 MG TABLET. PO SCH ×2 (09:20→13:59)
[2021-01-21] MEDS: predniSONE 10 MG TABLET. PO SCH (09:20)
[2021-01-21] MEDS: ALPRAZolam 0.5 MG TABLET PO SCH ×2 (09:20→13:59)
[2021-01-21] MEDS: MONTELUKAST 10 MG TABLET. PO SCH (09:20)
[2021-01-21] MEDS: DICLOFENAC SODIUM 25 MG TABLET.DR PO SCH ×2 (09:20→13:59)
[2021-01-21] MEDS: BUDESONIDE 0.5 MG/2 ML NEBU NEB SCH (09:46)
[2021-01-21] MEDS ORDERED: BUPIVACAINE PF 0.75% 10 ML VIAL IJ ONE (10:15)
[2021-01-21] MEDS ORDERED: TRIAMCINOLONE ACETONIDE 40 MG/ML VIAL. INT ART ONE (10:15)
[2021-01-21 10:49] VITALS: BP 102/70
[2021-01-21] MEDS ORDERED: HYDR-2763 PO (13:55)
[2021-01-21] MEDS ORDERED: PRED5TAB PO (13:55)
--- NOTE | 2021-01-21 14:43 | NUR ---
DISCHARGE NOTE PT discharged home today by Dr. Barrow. CM set up WC delivery to patient's home today or tomorrow. Pt verbalized understanding of DC paperwork and prescriptions. All question addressed. Pt escorted off unit in WC by RECREATION PROGRAM SPECIALIST and picked up by family member. Pt GCS 15 and VSS upon discharge. CC, RN
--- NOTE | 2021-01-26 15:21 | DS ---
HOSPITAL COURSE: A 65-year-old female, unable to take care of herself. Apparently, her left knee had subluxed. She is unable to bear weight. Pain is 10/10. She was unable to move the patient, had marked swelling and discomfort to the knee itself. We consulted with one of the orthopedic doctors and gave us kindly advice on we tried to ice it down. We also did an injection of the knee to give it some relief until we could safely send her home. The patient otherwise made fairly good progress after the injection to the left knee and she was discharged home for followup. Her C-reactive protein was elevated approximately 62. X-rays of the knee demonstrated the severe medial compartment osteoarthrosis with genu varus strain. The patient will be followed up by her orthopedic surgeon. IMPRESSION: Subluxation of the left knee, intractable pain, severe degenerative arthritis of the left knee. The patient did require IV pain medication for control of the pain was not controlled with oral medications. See MRAD. Decreased activity as tolerated and follow up with orthopedic. LAURY DR: Ela TID: [id number]
== END 2021-01-21 14:40 | disposition home or self-care (01) | DRG 554 ==
LOC: ER 13:30 → 1 SOUTH 15:25
PROVIDERS: ADMIT Family Medicine; ATTEND Family Medicine
DX: M17.12 Unilateral primary osteoarthritis, left knee (principal); Z68.43 Body mass index [BMI] 50.0-59.9, adult; M24.462 Recurrent dislocation, left knee; M21.162 Varus deformity, not elsewhere classified, left knee; I10 Essential (primary) hypertension; J45.909 Unspecified asthma, uncomplicated; E66.01 Morbid (severe) obesity due to excess calories; E78.00 Pure hypercholesterolemia, unspecified; F41.9 Anxiety disorder, unspecified; F32.9 Major depressive disorder, single episode, unspecified; Z60.2 Problems related to living alone; R05 Cough; R29.6 Repeated falls; R06.03 Acute respiratory distress; M25.462 Effusion, left knee; F41.0 Panic disorder [episodic paroxysmal anxiety]; Z04.3 Encounter for examination and observation following other accident; Z90.49 Acquired absence of other specified parts of digestive tract; Z90.710 Acquired absence of both cervix and uterus; Z88.2 Allergy status to sulfonamides; Z88.6 Allergy status to analgesic agent; Z91.041 Radiographic dye allergy status; Z91.040 Latex allergy status; Z88.0 Allergy status to penicillin; Z91.013 Allergy to seafood; Z88.5 Allergy status to narcotic agent; Z88.8 Allergy status to other drugs, medicaments and biological substances; X50.1XXA Overexertion from prolonged static or awkward postures, initial encounter; Y93.89 Activity, other specified; Y92.89 Other specified places as the place of occurrence of the external cause; Y99.8 Other external cause status; V48.4XXA Person boarding or alighting a car injured in noncollision transport accident, initial encounter; Z82.3 Family history of stroke
CPT/HCPCS: 36415; 71045; 73562; 80048; 85025; 86140; 94640; J3010; J3301; J3490; J7512; 97110; 97530; 97535; 99285-25

== ENCOUNTER → 2021-07-31 | Outpatient (CLI) | payer OTHER ==
[~2021-07-31] MED LIST changes: +BENZ200C47 PO; +CYCL10TA19 PO; +CYCL1DRO OP; +DICL75TA PO; +FLUC100T6 PO; +FLUC100T7 PO; +HYDR-2763 PO; +HYDR-2769 PO; +LANS30CA PO; +MONT-38 PO; +PHEN37.59 PO; +PRED5TAB PO; +PROG100C10 PO; +QUET50TA3 PO; +THYR30TA PO; +TIZA-75 PO; -TIZA4TAB2 PO; +TRAZ150T49 PO; +TRIA1TAB2 PO
[2021-07-31 13:12] LABS: BASO # 0.1 x10^3/uL (0.0-0.2); BASO % 1 % (0-3); EOS # 0.3 x10^3/uL (0.0-0.7); EOS % 3 % (0-3); HEMOGLOBIN 13.8 g/dL (12.0-15.5); LYMPH # 2.5 x10^3/uL (1.0-4.8); LYMPH % 21 % (24-48); MEAN CORPUSCULAR HEMOGLOBIN 29 pg (25-35); MEAN CORPUSCULAR HGB CONC 33 g/dL (31-37); MEAN CORPUSCULAR VOLUME 87 fL (79-100); MONO # 0.6 x10^3/uL (0.0-1.1); MONO % 5 % (0-9); NEUT # 8.6 x10^3uL (1.8-7.7); NEUT % 71 % (31-73); PLATELET COUNT 497 x10^3/uL (140-400); RED BLOOD COUNT 4.81 x10^6/uL (3.50-5.40); WHITE BLOOD COUNT 12.1 x10^3/uL (4.0-11.0)
[2021-07-31 13:25] LABS: ALBUMIN 3.3 g/dL (3.4-5.0); ALBUMIN/GLOBULIN RATIO 0.9 (1.0-1.7); CALCIUM 9.6 mg/dL (8.5-10.1); CREATININE 0.7 mg/dL (0.6-1.0); GFR 84.2; POTASSIUM 5.1 mmol/L (3.5-5.1); TOTAL BILIRUBIN 0.5 mg/dL (0.2-1.0)
[2021-08-01 01:15] LABS: HEMOGLOBIN A1C 5.7 % (4.8-5.6)
[2021-08-01 20:59] LABS: CHOLESTEROL/HDL RATIO 3.2; FREE T4 1.34 ng/dL (0.76-1.46); THYROID STIM HORMONE (TSH) 2.547 uIU/mL (0.358-3.740)
== END ==
LOC: LAB 12:22
PROVIDERS: ATTEND Family Medicine
DX: I10 Essential (primary) hypertension (principal); E03.9 Hypothyroidism, unspecified; R06.02 Shortness of breath; R63.5 Abnormal weight gain; R53.83 Other fatigue; F06.4 Anxiety disorder due to known physiological condition; Z79.899 Other long term (current) drug therapy
CPT/HCPCS: 36415; 80053; 80061; 83036; 84439; 84443; 85025